=== PATIENT | female | born 2000 | race Caucasian/White ===

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

== ENCOUNTER 2018-02-20 15:57 | Emergency (ER) | END 2018-02-20 18:26 | disposition left against medical advice (07) ==

== ENCOUNTER 2018-04-03 16:36 | Emergency (ER) | END 2018-04-03 19:02 | disposition home or self-care (01) ==

== ENCOUNTER 2018-04-30 19:37 | Inpatient (IN) | payer OTHER ==
[~2018-04-30] VITALS: Ht 154.9 cm; Wt 83.0 kg
[~2018-04-30 19:37] MED LIST: ACET325T33 PO; ACET500C5 PO; AMOX1TAB10 PO; CEPH-443 PO; CIPR500T4 PO; IBUP-1542 PO; METO10TA92 PO; ONDA4TAB14 PO; ONDA4TAB8 PO; SULF1TAB31 PO
--- NOTE | 2018-04-30 21:19 | ERD ---
ER Documentation Chief Complaint Chief Complaint RUQ & LUQ PAIN WITH 13 WKS PREG, DENIES BLEEDING HPI 18-year-old female who was approximately 17 weeks is complaining of right upper quadrant and left upper quadrant pain. Patient states that the pain is constant, feels like "squeezing". The pain is worse with movement or stretching. Denies dysuria. Denies pain after eating. Denies fever or chills. Denies vaginal bleeding. ROS All systems reviewed and are negative except as per history of present illness. Medications Home Meds Active Scripts Metoclopramide* (Reglan*) 10 Mg Tablet, 10 MG PO Q6 PRN for NAUSEA AND/OR VOMITING, #15 TAB Prov:DARRYL CASTANEDA MD 04/03/18 Acetaminophen* (Tylophen*) 500 Mg Capsule, 1 CAP PO Q6H PRN for PAIN AND OR ELEVATED TEMP, #15 CAP Prov:DARRYL CASTANEDA MD 04/03/18 Ibuprofen* (Motrin*) 600 Mg Tab, 600 MG PO Q6, #30 TAB Prov:VERA,TAMY 11/30/17 Ondansetron (Ondansetron Odt) 4 Mg Tab.rapdis, 4 MG PO Q6H PRN for NAUSEA AND/OR VOMITING, #10 TAB Prov:VERA,TAMY 11/30/17 Acetaminophen* (Tylenol*) 325 Mg Tablet, 2 TAB PO Q8 PRN for PAIN AND OR ELEVATED TEMP, #20 TAB Prov:AGUSTIN LANIER 10/31/17 Ondansetron Hcl* (Zofran*) 4 Mg Tablet, 4 MG PO Q6H for NAUSEA AND/OR VOMITING, #30 TAB Prov:AGUSTIN LANIER 10/31/17 Ciprofloxacin Hcl* (Ciprofloxacin Hcl*) 500 Mg Tablet, 500 MG PO BID for 7 Days, TAB Prov:AGUSTIN LANIER 10/31/17 Cephalexin* (Keflex*) 500 Mg Capsule, 500 MG PO QID for 10 Days, CAP Prov:JANNA MEZA NP 09/11/17 Sulfamethoxazole/Trimethoprim* (Bactrim Ds* Tablet) 1 Each Tablet, 1 TAB PO BID, #20 TAB Prov:JANNA MEZA NP 5/29/18 Ibuprofen* (Motrin*) 600 Mg Tab, 600 MG PO Q6H PRN for PAIN AND OR ELEVATED TEMP, #30 TAB Prov:JANNA MEZA NP 09/11/17 Ibuprofen* (Motrin*) 600 Mg Tab, 600 MG PO Q6, #30 TAB Prov:BJORN CASTILLO PA-C 05/10/16 Amoxicillin/Potassium Clav (Amox-Clav 875-125 mg Tablet) 875-125 mg Tab, 1 TAB PO BID for 7 Days, #14 TAB Prov:BJORN CASTILLO PA-C 05/10/16 Allergies Allergies: Coded Allergies: No Known Allergy (Unverified , 04/03/18) PMhx/Soc Medical and Surgical Hx: pt denies Medical Hx, pt denies Surgical Hx History of Surgery: No Anesthesia Reaction: No Hx Neurological Disorder: No Hx Respiratory Disorders: No Hx Cardiac Disorders: No Hx Psychiatric Problems: No Hx Miscellaneous Medical Probl: Yes (Pt states binge eating/purging [id number] (today 11/2017)) Hx Alcohol Use: Yes (Socially) Hx Substance Use: No Hx Tobacco Use: No Smoking Status: Never smoker Physical Exam Vitals Vital Signs Date Temp Pulse Resp B/P (MAP) Pulse Ox O2 O2 Flow FiO2 Time Delivery Rate 04/30/18 96.6 78 18 112/53 99 19:42 (72) Physical Exam General: Well-developed, well-nourished, conscious and coherent, in no distress Skin: Warm and dry without rash, good texture and turgor Head: Normocephalic without evidence of trauma Heart: Regular rate and rhythm. No murmur, rub, or gallops heard Abdomen: Soft, left upper quadrant and right upper quadrant tenderness without masses, guarding, or rebound. Bowel sounds are active. No hepat osplenomegaly Back: Without spinal tenderness, left CVA tenderness Pelvis: Nontender to palpation and stable to compression Extremities: Full range of motion. Good strength bilaterally. No erythema, ecchymosis, or edema. Peripheral pulses are intact. Sensation intact Neuro: Alert and oriented 4, GCS 15. Result Diagram: 04/30/18214204/30/182142 Results 24 hrs Laboratory Tests Test 04/30/18 21:19 04/30/18 21:43 Bedside Urine pH (LAB) 7.0 Bedside Urine Protein (LAB) Negative Bedside Urine Glucose (UA) Negative Bedside Urine Ketones (LAB) Negative Bedside Urine Blood Negative Bedside Urine Nitrite (LAB) Negative Bedside Urine Leukocyte Esterase (L Negative White Blood Count 9.3 10^3/ul Red Blood Count 3.70 10^6/ul Hemoglobin 11.9 g/dl Hematocrit 34.8 % Mean Corpuscular Volume 94.1 fl Mean Corpuscular Hemoglobin 32.2 pg Mean Corpuscular Hemoglobin Concent 34.2 g/dl Red Cell Distribution Width 12.5 % Platelet Count 182 10^3/UL Mean Platelet Volume 10.0 fl Immature Granulocytes % 0.600 % Neutrophils % 75.3 % Lymphocytes % 18.8 % Monocytes % 4.6 % Eosinophils % 0.6 % Basophils % 0.1 % Nucleated Red Blood Cells % 0.0 /100WBC Immature Granulocytes # 0.060 10^3/ul Neutrophils # 7.0 10^3/ul Lymphocytes # 1.8 10^3/ul Monocytes # 0.4 10^3/ul Eosinophils # 0.1 10^3/ul Basophils # 0.0 10^3/ul Nucleated Red Blood Cells # 0.0 10^3/ul Sodium Level 140 mmol/L Potassium Level 3.9 mmol/L Chloride Level 101 mmol/L Carbon Dioxide Level 26 mmol/L Anion Gap 13 Blood Urea Nitrogen 8 mg/dl Creatinine 0.36 mg/dl Est Glomerular Filtrat Rate mL/min > 60 mL/min Glucose Level 107 mg/dl Calcium Level 9.2 mg/dl Total Bilirubin 0.1 mg/dl Direct Bilirubin 0.00 mg/dl Indirect Bilirubin 0.1 mg/dl Aspartate Amino Transf (AST/SGOT) 20 IU/L Alanine Aminotransferase (ALT/SGPT) 25 IU/L Alkaline Phosphatase 54 IU/L Total Protein 6.9 g/dl Albumin 3.9 g/dl Globulin 3.00 g/dl Albumin/Globulin Ratio 1.30 Lipase 1684 U/L Current Medications Medications Dose Sig/Irene Start Time Status Last (Trade) Ordered Route PRN Stop Time Admin Dose Reason Admin 650 mg ONCE ONCE 04/30/18 DC 04/30/18 Acetaminophen PO 21:30 21:12 (Tylenol 04/30/18 21:31 Tab) Sodium 1,000 ml @ Q1H ONCE 04/30/18 04/30/18 Chloride 1,000 mls/hr IV 23:00 23:04 04/30/18 23:59 PROCEDURE: Abdominal ultrasound, limited. CLINICAL INDICATION: Abdominal pain. TECHNIQUE: Multiple real-time images were acquired of the patient's right upper abdomen utilizing a high resolution transducer. COMPARISON: None FINDINGS: The liver demonstrates normal echogenicity and size measuring 13.1 cm. There is no focal mass or intrahepatic biliary ductal dilatation. The portal vein is patent. The gallbladder is contracted and contains echogenic gallstones. There is a negative sonographic Coombs's sign. There is no pericholecystic fluid or gallbladder wall thickening. The common bile duct measures 1.6 mm in maximal dimension. The pancreas is obscured by overlying bowel gas. No free fluid is identified. The right kidney is normal size and echogenicity measuring 12.4 cm. There is no focal renal mass or echogenic calculus identified. There is no obstructive uropathy. IMPRESSION: Cholelithiasis without ultrasound evidence of cholecystitis. Pancreas obscured by overlying bowel gas. .Blu Lazcano MD, MD Date Time Electronically viewed and signed by .Blu Lazcano MD, MD on 04/30/2018 21:58 .T/ CC: JUAN GOMEZ NP PROCEDURE: US OB. CLINICAL INDICATION: , pain. TECHNIQUE: Multiple sonographic images of the pelvis were obtained. Transabdominal imaging only was performed. The images were reviewed on a PACS workstation. COMPARISON: No prior studies are available for comparison. FINDINGS: There is a single viable intrauterine gestation. Cardiac activity is present with 146 beats per minute. There is a variable presentation. Measurements were made in order to determine age. The results are as follows: BPD = 3.98 cm HC = 14.12 cm AC = 10.98 cm FL = 2.44 cm Estimated gestational age of approximately 17 weeks 3 days. The estimated date of delivery is 10/05/2018. The EFW = 103 g EFW percentile: 87% The placenta is posterior fundal, grade 0. There is no evidence for an abruption. There is a normal amount of amniotic fluid. The MVP measures 5.2 cm. IMPRESSION: Single live intrauterine gestation of approximately 17 weeks 3 days, based on ultrasound measurements. The estimated date of delivery is 10/05/2018. EFW percentile: 87%. RPTAT: HTAR .Yosef Traylor MD, MD Date Time Electronically viewed and signed by .Yosef Traylor MD, MD on 04/30/2018 22:01 .R/ CC: JUAN GOMEZ NP Procedures/MDM Well-appearing 18-year-old female who is approximately 17 weeks presents the ED with left upper quadrant and right upper quadrant pain. CBC: no e/o of systemic infection or severe anemia CMP: no e/o severe acidosis, alkalosis, renal failure, diabetic ketoacidosis, liver disease Lipase: Markedly elevated at 1684, suggestive of pancreatitis Urine: no e/o acute infection or hematuria Gallbladder ultrasound showed cholelithiasis without signs of cholecystitis. OB ultrasound showed normal intrauterine . Patient is given normal saline fluid bolus in the ED. Patient denies any severe pain at this time. She was given Tylenol p.o. I discussed the patient with Dr. Lion, who will admit the patient with medicine. I also informed labors on-call Dr. Romano, who stated that she will consult on the patient in the morning. Departure Diagnosis: Primary Impression: Pancreatitis Condition: Serious JUAN GOMEZ NP Apr 30, 2018 21:19
[2018-04-30] MEDS ORDERED: ACETAMINOPHEN 325 MG TAB PO ONE (21:30)
[2018-04-30] MEDS ORDERED: SOD CHLORIDE 0.9% 1,000 ML IV ONE (23:00)
[2018-05-01 03:09] VITALS: BP 106/54; PULSE 65; RESP 17
[2018-05-01 03:35] VITALS: Ht 154.9 cm; Wt 83.0 kg
--- NOTE | 2018-05-01 04:31 | NUR ---
POTABLE WATER TREATMENT OPERATOR NOTES Patient arrived in unit in no apparent distress. Patient is alert and oriented, verbally responsive and able to make needs known. No c/o pain as of this time, skin is warm and dry to touch. Breathing regular an don labored. Routine admission done. Boyfriend at bedside. Patient is 17 weeks . teaching provided. Explained treatment plan. All nursing needs attended, no concerns at this time. Will continue to monitor. Addendum: 05/01/18 at 0745 by NICKY PIRES RN Patient refused picture to be taken on her buttock and bilateral heels, she said she is not comfortable.
[2018-05-01] MEDS ORDERED: morphine 2 MG INJ IV PRN (05:00)
[2018-05-01] MEDS ORDERED: MAGNESIUM HYDROXIDE 30ML CUP PO PRN (05:00)
[2018-05-01] MEDS ORDERED: DOCUSATE SODIUM 100 MG CAP PO PRN (05:00)
[2018-05-01] MEDS ORDERED: NACL 0.9% 3 ML SYG IV SCH (05:00)
[2018-05-01] MEDS ORDERED: BISACODYL 10 MG SUPP PR PRN (05:00)
[2018-05-01] MEDS ORDERED: ONDANSETRON 4 MG INJ IV PRN (05:00)
[2018-05-01] MEDS ORDERED: morphine SULFATE/PF (2 MG/2 ML) SYG IV PRN (05:00)
[2018-05-01] MEDS: DEXTROSE 5%-0.9% NACL 1,000 ML IV SCH ×3 (05:39→20:43)
[2018-05-01 08:00] VITALS: BP 100/51; PULSE 65; RESP 18
[2018-05-01] MEDS: FAMOTIDINE 20 MG INJ IV SCH ×2 (09:41→20:43)
[2018-05-01] MEDS: ACETAMINOPHEN 325 MG TAB PO PRN (09:42)
--- NOTE | 2018-05-01 10:30 | NUR ---
SS Note: AHCD/Initial Visit SW received notification pt interested in more information regarding AHCD. The patient is a 18-year-old female with, 17 weeks admitted due to acute pancreatitis. SW met with pt and her significant other at bedside. Pt agreed for significant other to be present to during interview. Pt is unmarried and has no living children. Pt named her mother, Shu Guillen , as surrogate decision maker/spokesperson. Pt confirmed address on facesheet and stated she lives with her parents. 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 Pt has [employer] insurance and PCP is at [facility]. SW introduced self and the role of the older adult social work specialist. SW provided support and reassurance. SW discussed and provided education about completing and facilitating the AHCD. Pt was provided with AHCD form for her completion. No AHCD f/u requested. SW remains available for f/u as needed.
--- NOTE | 2018-05-01 10:39 | HP ---
Date/Time of Note Date/Time of Note DATE: 05/01/18 TIME: 10:27 Assessment/Plan VTE Prophylaxis SCD applied (from Nsg): Yes Pharmacological prophylaxis: NA/contraindicated Pharm contraindication: other ( ) Lines/Catheters IV Catheter Type (from Nrs): Saline Lock Assessment/Plan Assessment/Plan 18-year-old female with: 1. Acute pancreatitis, clinically and per laboratory, amylase and lipase did go up this morning to 295/2209 . Patient to remain n.p.o. except for ice chips and sips of water with medications. Fasting lipid panel negative, limited to information from gallbladder ultrasound except for the fact that no acute infection seen. MRCP pending. CMP pending Continue IV fluids, repeat labs in a.m., GI consult and MRCP pending. 2. , patient is in her second trimester, she is a 17 weeks, fetus viable per OB ultrasound. Patient remains stable. We will have OB involved if patient needs additional procedure to be done be on MRCP. Prophylaxis: Pepcid for GI prophylaxis, SCDs for DVT prophylaxis Disposition: N.p.o., IV fluids, MRCP today, GI consult. Result Diagram: 04/30/18214204/30/182142 Results 24hrs Laboratory Tests Test 04/30/18 21:19 04/30/18 21:43 05/01/18 05:18 Bedside Urine pH (LAB) 7.0 Bedside Urine Protein (LAB) Negative Bedside Urine Glucose (UA) Negative Bedside Urine Ketones (LAB) Negative Bedside Urine Blood Negative Bedside Urine Nitrite (LAB) Negative Bedside Urine Leukocyte Esterase (L Negative White Blood Count 9.3 Red Blood Count 3.70 L Hemoglobin 11.9 L Hematocrit 34.8 L Mean Corpuscular Volume 94.1 Mean Corpuscular Hemoglobin 32.2 Mean Corpuscular Hemoglobin Concent 34.2 Red Cell Distribution Width 12.5 Platelet Count 182 Mean Platelet Volume 10.0 Immature Granulocytes % 0.600 H Neutrophils % 75.3 H Lymphocytes % 18.8 Monocytes % 4.6 Eosinophils % 0.6 Basophils % 0.1 Nucleated Red Blood Cells % 0.0 Immature Granulocytes # 0.060 H Neutrophils # 7.0 Lymphocytes # 1.8 Monocytes # 0.4 Eosinophils # 0.1 Basophils # 0.0 Nucleated Red Blood Cells # 0.0 Sodium Level 140 Potassium Level 3.9 Chloride Level 101 Carbon Dioxide Level 26 Anion Gap 13 Blood Urea Nitrogen 8 Creatinine 0.36 L Est Glomerular Filtrat Rate mL/min > 60 Glucose Level 107 Calcium Level 9.2 Total Bilirubin 0.1 L Direct Bilirubin 0.00 Indirect Bilirubin 0.1 Aspartate Amino Transf (AST/SGOT) 20 Alanine Aminotransferase (ALT/SGPT) 25 Alkaline Phosphatase 54 Total Protein 6.9 Albumin 3.9 Globulin 3.00 Albumin/Globulin Ratio 1.30 Lipase 1684 H 2209 H Triglycerides Level 71 Cholesterol Level 148 LDL Cholesterol, Calculated 66 HDL Cholesterol 68 Cholesterol/HDL Ratio 2.1 Amylase Level 295 H HPI/ROS Admit Date/Time Admit Date/Time May 01, 2018 at 02:09 Hx of Present Illness Chief complaint: Abdominal pain History of present illness: This is a 18-year-old female , currently 17 weeks who presented the emergency department with complaint of acute onset of abdominal pain. She reports that she had acute onset of epigastric right upper quadrant area pain yesterday morning, mild, however throughout the day it started worsening and was intermittent coming in waves. She came to the emergency department, upon evaluation she was found to have elevated lipase level and diagnosis consistent with acute pancreatitis. Gallbladder ultrasound did show cholelithiasis but no signs of acute infections. She also had a pelvic ultrasound will be that did confirm a viable at 17 weeks. Patient has been admitted to the medical service for acute pancreatitis, she is on IV fluids, n.p.o. except for ice chips and IV fluid, amylase and lipase still trending up. Patient still with some epigastric pain that seems to be radiating from right upper quadrant to left upper quadrant. No nausea or vomiting. No fevers or chills. No diarrhea. MRCP is ordered and pending. Patient admitted to medical surgical bed. ROS Constitutional: no complaints Eyes: no complaints Respiratory: no complaints Cardiovascular: no complaints Gastrointestinal: pain (Epigastric, intermittent) Genitourinary: no complaints Musculoskeletal: no complaints Skin: no complaints Neurologic: no complaints Endocrine: no complaints Lymphatic: no complaints Psychological: no complaints Immunologic: no complaints PMH/Family/Social Past Medical History Patient currently , first at 17 weeks currently. Medications Current Medications IV Flush (NS 3 ml) 3 ml PER PROTOCOL IV ; Start 05/01/18 at 05:00 Ondansetron HCl (Zofran Inj) 4 mg Q6H PRN IV NAUSEA AND/OR VOMITING; Start 05/01/18 at 05:00 Acetaminophen (Tylenol Tab) 650 mg Q6H PRN PO PAIN LEVEL 1-3 OR FEVER Last administered on 05/01/18at 09:42; Admin Dose 650 MG; Start 05/01/18 at 05:00 Docusate Sodium (Colace) 100 mg Q12H PRN PO CONSTIPATION; Start 05/01/18 at 05:00 Magnesium Hydroxide (Milk Of Mag) 30 ml DAILY PRN PO CONSTIPATION; Start at 05:00 Bisacodyl (Dulcolax Supp) 10 mg DAILY PRN MS CONSTIPATION; Start 05/01/18 at 05:00 Famotidine (Pepcid Iv) 20 mg Q12 IV Last administered on 05/01/18at 09:41; Admin Dose 20 MG; Start 05/01/18 at 09:00 Dextrose/Sodium Chloride 1,000 ml @ 125 mls/hr Q8H IV Last administered on 05/01/18at 05:39; Admin Dose 125 MLS/HR; Start 05/01/18 at 05:00 Morphine Sulfate (morphine SULFATE (PF)) 2 mg Q4H PRN IV SEVERE PAIN LEVEL 7- 10; Start 05/01/18 at 05:00 Coded Allergies: No Known Allergy (Unverified , 04/03/18) Past Surgical History Past Surgical Hx: no surgical history Family History Significant Family History: no pertinent family hx Social History Alcohol Use: none Smoking Status: Never smoker Drug Use: none Exam/Review of Systems Vital Signs Vitals Vital Signs Date Temp Pulse Resp B/P (MAP) Pulse Ox O2 O2 Flow FiO2 Time Delivery Rate 05/01/18 98.6 65 18 100/51 96 08:00 (67) 05/01/18 Room Air 02:17 Intake and Output 04/30/18 04/30/18 05/01/18 1515:00 23:00 07:00 IntakeIntake Total 50 ml BalanceBalance 50 ml Exam Constitutional: alert, oriented, well developed Respiratory: clear to auscultation, normal air movement Cardiovascular: regular rate and rhythm, nl pulses Gastrointestinal: soft, tender (Right upper quadrant epigastric area radiation to left upper quadrant area.) Genitourinary - Female: uterus (slightly gravid, 17 weeks .) Musculoskeletal: nl extremities to inspection, nl gait and stance Extremities: normal pulses, other (No edema, clubbing or cyanosis.) Neurological: LAWN SERVICE MANAGER II-XII intact, nl mental status, nl speech, nl strength Additional Comments PROCEDURE: Abdominal ultrasound, limited. CLINICAL INDICATION: Abdominal pain. TECHNIQUE: Multiple real-time images were acquired of the patient's right upper abdomen utilizing a high resolution transducer. COMPARISON: None FINDINGS: The liver demonstrates normal echogenicity and size measuring 13.1 cm. There is no focal mass or intrahepatic biliary ductal dilatation. The portal vein is patent. The gallbladder is contracted and contains echogenic gallstones. There is a negative sonographic Coombs's sign. There is no pericholecystic fluid or gallbladder wall thickening. The common bile duct measures 1.6 mm in maximal dimension. The pancreas is obscured by overlying bowel gas. No free fluid is identified. The right kidney is normal size and echogenicity measuring 12.4 cm. There is no focal renal mass or echogenic calculus identified. There is no obstructive uropathy. IMPRESSION: Cholelithiasis without ultrasound evidence of cholecystitis. Pancreas obscured by overlying bowel gas. .Blu Lazcano MD, MD Date Time Electronically viewed and signed by .Blu Lazcano MD, MD on 04/30/2018 21:58 PROCEDURE: US OB. CLINICAL INDICATION: , pain. TECHNIQUE: Multiple sonographic images of the pelvis were obtained. Transabdominal imaging only was performed. The images were reviewed on a PACS workstation. COMPARISON: No prior studies are available for comparison. FINDINGS: There is a single viable intrauterine gestation. Cardiac activity is present with 146 beats per minute. There is a variable presentation. Measurements were made in order to determine age. The results are as follows: BPD = 3.98 cm HC = 14.12 cm AC = 10.98 cm FL = 2.44 cm Estimated gestational age of approximately 17 weeks 3 days. The estimated date of delivery is 10/05/2018. The EFW = 103 g EFW percentile: 87% The placenta is posterior fundal, grade 0. There is no evidence for an abruption. There is a normal amount of amniotic fluid. The MVP measures 5.2 cm. IMPRESSION: Single live intrauterine gestation of approximately 17 weeks 3 days, based on ultrasound measurements. The estimated date of delivery is 10/05/2018. EFW percentile: 87%. RPTAT: HTAR .Yosef Traylor MD, MD Date Time Electronically viewed and signed by .Yosef Traylor MD, MD on 04/30/2018 22:01 MIKEY HAMMOND May 01, 2018 10:38
[2018-05-01 14:00] VITALS: BP 107/51; PULSE 68; RESP 20
--- NOTE | 2018-05-01 18:15 | CONS ---
Date/Time of Note Date/Time of Note DATE: 05/01/18 TIME: 18:07 Assessment/Plan Assessment/Plan Hospital Course Summary Assessment and Plan: Assessment: Acute pancreatitis Single live intrauterine gestation of approximately 17 weeks 4 days 05/01/17 Plan: Keep NPO- start clear liquid when pain has improved IVF Pending MRCP If positive for choledocholithiasis-patient will need urgent transfer to tertiary care center for possible ERCP Monitor labs Patient seen in collaboration with Dr. Mahmood Result Diagram: 04/30/18 2143 05/01/18 1049 Results 24hrs Laboratory Tests Test 04/30/18 21:19 04/30/18 21:43 05/01/18 05:18 05/01/18 10:49 Bedside Urine pH 7.0 (LAB) Bedside Urine Negative Protein (LAB) Bedside Urine Negative Glucose (UA) Bedside Urine Negative Ketones (LAB) Bedside Urine Blood Negative Bedside Urine Negative Nitrite (LAB) Bedside Urine Negative Leukocyte Esterase (L White Blood Count 9.3 Red Blood Count 3.70 L Hemoglobin 11.9 L Hematocrit 34.8 L Mean Corpuscular 94.1 Volume Mean Corpuscular 32.2 Hemoglobin Mean Corpuscular 34.2 Hemoglobin Concent Red Cell 12.5 Distribution Width Platelet Count 182 Mean Platelet Volume 10.0 Immature 0.600 H Granulocytes % Neutrophils % 75.3 H Lymphocytes % 18.8 Monocytes % 4.6 Eosinophils % 0.6 Basophils % 0.1 Nucleated Red Blood 0.0 Cells % Immature 0.060 H Granulocytes # Neutrophils # 7.0 Lymphocytes # 1.8 Monocytes # 0.4 Eosinophils # 0.1 Basophils # 0.0 Nucleated Red Blood 0.0 Cells # Sodium Level 140 137 Potassium Level 3.9 3.8 Chloride Level 101 107 Carbon Dioxide Level 26 23 Anion Gap 13 7 Blood Urea Nitrogen 8 7 Creatinine 0.36 L 0.37 L Est Glomerular > 60 > 60 Filtrat Rate mL/min Glucose Level 107 85 Calcium Level 9.2 8.4 Total Bilirubin 0.1 L 0.1 L Direct Bilirubin 0.00 0.00 Indirect Bilirubin 0.1 0.1 Aspartate Amino 20 18 Transf (AST/SGOT) Alanine 25 19 Aminotransferase (AL T/SGPT) Alkaline Phosphatase 54 46 Total Protein 6.9 5.7 #L Albumin 3.9 3.2 L Globulin 3.00 2.50 Albumin/Globulin 1.30 1.28 Ratio Lipase 1684 H 2209 H Triglycerides Level 71 Cholesterol Level 148 LDL Cholesterol, 66 Calculated HDL Cholesterol 68 Cholesterol/HDL 2.1 Ratio Amylase Level 295 H Prothrombin Time 13.0 Prothrombin Time 1.0 Ratio INR International 0.97 Normalized Ratio Activated 31.0 Partial Thromboplast Time CC: JANAK MAHMOOD MD ; Consultation Date/Type/Reason Admit Date/Time May 01, 2018 at 02:09 Date of Consultation: May 01, 2018 Type of Consult GI Reason for Consultation acute pancreatitis r/o CBD obstruction Hx of Present Illness This is a 18 year old female who is currently 17 weeks with no other past medical history who presented to the ED with complaints of upper abdominal pain with no associated nausea or vomiting times 1 days presented to ED for further evaluation. Upon workup patient noted to have an elevated lipase. Gallbladder ultrasound was obtained showing cholelithiasis without evidence of cholecystitis. Patient has been n.p.o. on IV fluids. Lipase was rechecked today and has increased from 1684 to 2209, additionally amylase is elevated at 295. Patient is status post MRCP currently results are pending. Discussed with patient if positive for choledocholithiasis she will need to be transferred to a tertiary center for evaluation and treatment currently patient denies nausea/vomiting she continues to complain of upper abdominal pain 4 out of 10 no complaints of constipation, diarrhea, melena, or hematochezia. Pain improves will consider starting clear liquid diet in a.m. Review of Systems: A 12 system, review was conducted and is negative except as noted in the HPI or here. Subjective hx not possible: pt non-verbal Past Medical History Medications Current Medications IV Flush (NS 3 ml) 3 ml PER PROTOCOL IV ; Start 05/01/18 at 05:00 Ondansetron HCl (Zofran Inj) 4 mg Q6H PRN IV NAUSEA AND/OR VOMITING; Start 05/01/18 at 05:00 Acetaminophen (Tylenol Tab) 650 mg Q6H PRN PO PAIN LEVEL 1-3 OR FEVER Last administered on 05/01/18at 09:42; Admin Dose 650 MG; Start 05/01/18 at 05:00 Docusate Sodium (Colace) 100 mg Q12H PRN PO CONSTIPATION; Start 05/01/18 at 05:00 Magnesium Hydroxide (Milk Of Mag) 30 ml DAILY PRN PO CONSTIPATION; Start 05/01/18 at 05:00 Bisacodyl (Dulcolax Supp) 10 mg DAILY PRN [place] CONSTIPATION; Start 05/01/18 at 05:00 Famotidine (Pepcid Iv) 20 mg Q12 IV Last administered on 05/01/18at 09:41; Admin Dose 20 MG; Start 05/01/18 at 09:00 Dextrose/Sodium Chloride 1,000 ml @ 125 mls/hr Q8H IV Last administered on 05/01/18at 12:58; Admin Dose 125 MLS/HR; Start 05/01/18 at 05:00 Morphine Sulfate (morphine SULFATE (PF)) 2 mg Q4H PRN IV SEVERE PAIN LEVEL 7- 10; Start 05/01/18 at 05:00 Allergies: Coded Allergies: No Known Allergy (Unverified , 04/03/18) Past Surgical History Past Surgical Hx: no surgical history Social History Alcohol Use: none Smoking Status: Never smoker Drug Use: none Exam/Review of Systems Vital Signs Vitals Vital Signs Date Temp Pulse Resp B/P (MAP) Pulse Ox O2 O2 Flow FiO2 Time Delivery Rate 05/01/18 98.0 68 20 107/51 96 14:00 (69) 05/01/18 Room Air 02:17 Intake and Output 04/30/18 04/30/18 05/01/18 1515:00 23:00 07:00 IntakeIntake Total 50 ml BalanceBalance 50 ml Exam PHYSICAL EXAMINATION: GENERAL: Well developed, well nourished, alert & oriented x 3, in no acute distress SKIN: No lesions EYES: Pupils equal reactive to light, no discharge. EARS/NOSE AND THROAT: Ears normal, nose normal, oropharynx normal NECK: Supple, no masses. CHEST: Inspection within normal limits. CARDIOVASCULAR: Heart: Regular rate and rhythm RESPIRATORY: Lungs clear to auscultation GASTROINTESTINAL AND LIVER: Abdomen: Soft, non tenderness, distended, 17 weeks , no hernias, normoactive bowel sounds. Rectal: Deferred. GENITOURINARY: Not examined EXTREMITIES: No cyanosis, clubbing or edema. Medications Medications Current Medications IV Flush (NS 3 ml) 3 ml PER PROTOCOL IV ; Start 05/01/18 at 05:00 Ondansetron HCl (Zofran Inj) 4 mg Q6H PRN IV NAUSEA AND/OR VOMITING; Start 05/01/18 at 05:00 Acetaminophen (Tylenol Tab) 650 mg Q6H PRN PO PAIN LEVEL 1-3 OR FEVER Last administered on 05/01/18at 09:42; Admin Dose 650 MG; Start 05/01/18 at 05:00 Docusate Sodium (Colace) 100 mg Q12H PRN PO CONSTIPATION; Start 05/01/18 at 05:00 Magnesium Hydroxide (Milk Of Mag) 30 ml DAILY PRN PO CONSTIPATION; Start 05/01/18 at 05:00 Bisacodyl (Dulcolax Supp) 10 mg DAILY PRN [place] CONSTIPATION; Start 05/01/18 at 05:00 Famotidine (Pepcid Iv) 20 mg Q12 IV Last administered on 05/01/18at 09:41; Admin Dose 20 MG; Start 05/01/18 at 09:00 Dextrose/Sodium Chloride 1,000 ml @ 125 mls/hr Q8H IV Last administered on 05/01/18at 12:58; Admin Dose 125 MLS/HR; Start 05/01/18 at 05:00 Morphine Sulfate (morphine SULFATE (PF)) 2 mg Q4H PRN IV SEVERE PAIN LEVEL 7- 10; Start 05/01/18 at 05:00 RUDY ROSA May 01, 2018 18:15
--- NOTE | 2018-05-01 18:51 | NUR ---
No acute changes during shift. Pt safe and free from injury. Significant other at bedside through shift. Pt A&ox4 and able to make needs known. Pt ambulatory with steady gait. Pt pain and discomfort managed throughout shift. No signs of distress. No SOB. Pt currently comfortable in bed. Bed alarm on, call light within reach. Will continue to monitor.
--- NOTE | 2018-05-01 19:50 | CONS ---
Date/Time of Note Date/Time of Note DATE: 05/01/18 TIME: 19:25 Assessment/Plan Assessment/Plan Assessment/Plan 18 years old 1 with single intrauterine at 17 weeks and 3 days with cholelithiasis without Cholecystitis and pancreatitis. She is being followed by GI and hospitalist. Please see their note for detail. Regarding , she is currently doing well. Ultrasound performed which confirmed single intrauterine . If patient needs surgery, second trimester is the best time for performing surgery as the risk of spontaneous and labor is lower than first and third trimester. heart rate will be checked daily. Please reconsult if patient needs any surgery. Result Diagram: 04/30/18 2143 05/01/18 1049 Results 24hrs Laboratory Tests Test 04/30/18 21:19 04/30/18 21:43 05/01/18 05:18 05/01/18 10:49 Bedside Urine pH 7.0 (LAB) Bedside Urine Negative Protein (LAB) Bedside Urine Negative Glucose (UA) Bedside Urine Negative Ketones (LAB) Bedside Urine Blood Negative Bedside Urine Negative Nitrite (LAB) Bedside Urine Negative Leukocyte Esterase (L White Blood Count 9.3 Red Blood Count 3.70 L Hemoglobin 11.9 L Hematocrit 34.8 L Mean Corpuscular 94.1 Volume Mean Corpuscular 32.2 Hemoglobin Mean Corpuscular 34.2 Hemoglobin Concent Red Cell 12.5 Distribution Width Platelet Count 182 Mean Platelet Volume 10.0 Immature 0.600 H Granulocytes % Neutrophils % 75.3 H Lymphocytes % 18.8 Monocytes % 4.6 Eosinophils % 0.6 Basophils % 0.1 Nucleated Red Blood 0.0 Cells % Immature 0.060 H Granulocytes # Neutrophils # 7.0 Lymphocytes # 1.8 Monocytes # 0.4 Eosinophils # 0.1 Basophils # 0.0 Nucleated Red Blood 0.0 Cells # Sodium Level 140 137 Potassium Level 3.9 3.8 Chloride Level 101 107 Carbon Dioxide Level 26 23 Anion Gap 13 7 Blood Urea Nitrogen 8 7 Creatinine 0.36 L 0.37 L Est Glomerular > 60 > 60 Filtrat Rate mL/min Glucose Level 107 85 Calcium Level 9.2 8.4 Total Bilirubin 0.1 L 0.1 L Direct Bilirubin 0.00 0.00 Indirect Bilirubin 0.1 0.1 Aspartate Amino 20 18 Transf (AST/SGOT) Alanine 25 19 Aminotransferase (AL T/SGPT) Alkaline Phosphatase 54 46 Total Protein 6.9 5.7 #L Albumin 3.9 3.2 L Globulin 3.00 2.50 Albumin/Globulin 1.30 1.28 Ratio Lipase 1684 H 2209 H Triglycerides Level 71 Cholesterol Level 148 LDL Cholesterol, 66 Calculated HDL Cholesterol 68 Cholesterol/HDL 2.1 Ratio Amylase Level 295 H Prothrombin Time 13.0 Prothrombin Time 1.0 Ratio INR International 0.97 Normalized Ratio Activated 31.0 Partial Thromboplast Time Consultation Date/Type/Reason Admit Date/Time May 01, 2018 at 02:09 Date of Consultation: May 01, 2018 Type of Consult [facility] consult Reason for Consultation Renetta intrauterine at 17 + weeks with pancreatitis Hx of Present Illness 18 years old 1 with single intrauterine at 17 weeks and 3 days with DAVID of 10/06/2018 who presented to emergency department with c/o of upper abdominal pain. She denies nausea, vomiting, shortness of breath, chest pain, headache, visual changes, vaginal bleeding or LOF. ER evaluation revealed an elevated lipase. Ultrasound of gallbladder showing cholelithiasis without evidence of cholecystitis. Repeat labs showing elevated lipase and amylase. Constitutional: no complaints Cardiovascular: no complaints Gastrointestinal: no complaints Genitourinary: no complaints Additional Comments 12 systems were negative, except please refer to history of present illness Past Medical History Medical History: no pertinent history Medications Current Medications IV Flush (NS 3 ml) 3 ml PER PROTOCOL IV ; Start 05/01/18 at 05:00 Ondansetron HCl (Zofran Inj) 4 mg Q6H PRN IV NAUSEA AND/OR VOMITING; Start 05/01/18 at 05:00 Acetaminophen (Tylenol Tab) 650 mg Q6H PRN PO PAIN LEVEL 1-3 OR FEVER Last administered on 05/01/18at 09:42; Admin Dose 650 MG; Start 05/01/18 at 05:00 Docusate Sodium (Colace) 100 mg Q12H PRN PO CONSTIPATION; Start 05/01/18 at 05:00 Magnesium Hydroxide (Milk Of Mag) 30 ml DAILY PRN PO CONSTIPATION; Start 05/01/18 at 05:00 Bisacodyl (Dulcolax Supp) 10 mg DAILY PRN [place] CONSTIPATION; Start 05/01/18 at 05 :00 Famotidine (Pepcid Iv) 20 mg Q12 IV Last administered on 05/01/18at 09:41; Admin Dose 20 MG; Start 05/01/18 at 09:00 Dextrose/Sodium Chloride 1,000 ml @ 125 mls/hr Q8H IV Last administered on at 12:58; Admin Dose 125 MLS/HR; Start 05/01/18 at 05:00 Morphine Sulfate (morphine SULFATE (PF)) 2 mg Q4H PRN IV SEVERE PAIN LEVEL 7- 10; Start 05/01/18 at 05:00 Allergies: Coded Allergies: No Known Allergy (Unverified , 04/03/18) Past Surgical History Past Surgical Hx: no surgical history Family History Significant Family History: no pertinent family hx Social History Alcohol Use: none Smoking Status: Never smoker Drug Use: none Exam/Review of Systems Vital Signs Vitals Vital Signs Date Temp Pulse Resp B/P (MAP) Pulse Ox O2 O2 Flow FiO2 Time Delivery Rate 05/01/18 98.0 68 20 107/51 96 14:00 (69) 05/01/18 Room Air 02:17 Intake and Output 04/30/18 04/30/18 05/01/18 1515:00 23:00 07:00 IntakeIntake Total 50 ml BalanceBalance 50 ml Exam Constitutional: alert, oriented, well developed Psych: no complaints, nl mood/affect Neck: supple, non-tender Respiratory: clear to auscultation, normal air movement Cardiovascular: regular rate and rhythm Gastrointestinal: soft, nl liver, spleen Musculoskeletal: nl extremities to inspection Extremities: normal pulses Neurological: MARKET RISK ANALYST II-XII intact, nl mental status, nl speech Medications Medications Current Medications IV Flush (NS 3 ml) 3 ml PER PROTOCOL IV ; Start 05/01/18 at 05:00 Ondansetron HCl (Zofran Inj) 4 mg Q6H PRN IV NAUSEA AND/OR VOMITING; Start 05/01/18 at 05:00 Acetaminophen (Tylenol Tab) 650 mg Q6H PRN PO PAIN LEVEL 1-3 OR FEVER Last administered on 05/01/18at 09:42; Admin Dose 650 MG; Start 05/01/18 at 05:00 Docusate Sodium (Colace) 100 mg Q12H PRN PO CONSTIPATION; Start 05/01/18 at 05:00 Magnesium Hydroxide (Milk Of Mag) 30 ml DAILY PRN PO CONSTIPATION; Start 05/01/18 at 05:00 Bisacodyl (Dulcolax Supp) 10 mg DAILY PRN [place] CONSTIPATION; Start 05/01/18 at 05 :00 Famotidine (Pepcid Iv) 20 mg Q12 IV Last administered on 05/01/18at 09:41; Admin Dose 20 MG; Start 05/01/18 at 09:00 Dextrose/Sodium Chloride 1,000 ml @ 125 mls/hr Q8H IV Last administered on at 12:58; Admin Dose 125 MLS/HR; Start 05/01/18 at 05:00 Morphine Sulfate (morphine SULFATE (PF)) 2 mg Q4H PRN IV SEVERE PAIN LEVEL 7- 10; Start 05/01/18 at 05:00 WHITNEY TELLEZ May 01, 2018 19:40
[2018-05-01 20:00] VITALS: BP 108/53; PULSE 60; RESP 18
--- NOTE | 2018-05-01 22:30 | NUR ---
L&D nurse here to do FHR monitoring. Will continue w/ plan of care
--- NOTE | 2018-05-01 22:30 | NUR ---
FHR per doppler x1-2 minutes: 143-149. No decels noted. Addendum: 05/01/18 at 2240 by CLARENCE BERNAL RN Amended: Links added.
[2018-05-02 02:00] VITALS: BP 94/54; PULSE 81; RESP 18
[2018-05-02] MEDS: DEXTROSE 5%-0.9% NACL 1,000 ML IV SCH ×3 (02:11→18:50)
--- NOTE | 2018-05-02 03:42 | NUR ---
Gave report to Angelia BUSTAMANTE for continuity of care
--- NOTE | 2018-05-02 06:46 | NUR ---
0342 Report received from Ella BUSTAMANTE. 0500 Pt resting comfortably in bed at this time, pt denies needs at this time. 0630 No significant changes occurred throughout the shift. Nursing will continue to monitor and endorse to morning shift to ensure pt safety and continuity of care.
[2018-05-02 08:00] VITALS: BP 103/50; PULSE 76; RESP 18
[2018-05-02] MEDS: FAMOTIDINE 20 MG INJ IV SCH ×2 (08:39→21:10)
--- NOTE | 2018-05-02 09:57 | PN ---
Date/Time of Note Date/Time of Note DATE: 05/02/18 TIME: 09:52 Assessment/Plan VTE Prophylaxis Risk score (from Ns)>0 risk: 2 SCD applied (from Ns): Yes Pharmacological prophylaxis: NA/contraindicated Pharm contraindication: low risk/ambulating Lines/Catheters IV Catheter Type (from Nrs): Peripheral IV Assessment/Plan Assessment/Plan 18-year-old female with: 1. Acute pancreatitis with possible chronic component based on MRCP. Improving clinically and per laboratory, amylase and lipase now trending down this morning to 185/590. CMP within normal. No abdominal pain this morning. MRCP done, results noted. Awaiting GI for further recommendations, given improvement clinically and significant decrease of pancreatic enzymes, hopefully patient will be treated conservatively and clear liquids can be started today. Appreciate evaluation and recommendations from OB. Continue IV fluids, repeat labs in a.m. 2. , patient is in her second trimester, she is a 17 weeks and 3 days, fetus viable per OB ultrasound. Patient remains stable. Appreciate evaluation and recommendations from OB. Monitoring heartbeat daily while inpatient. Prophylaxis: Pepcid for GI prophylaxis, SCDs for DVT prophylaxis Disposition: N.p.o., IV fluids, awaiting GI recommendations today. Result Diagram: 05/02/18 0550 05/02/18 0550 Results 24hrs Laboratory Tests Test 05/01/18 10:49 05/02/18 05:50 Prothrombin Time 13.0 Prothrombin Time Ratio 1.0 INR International Normalized Ratio 0.97 Activated Partial Thromboplast Time 31.0 Sodium Level 137 135 Potassium Level 3.8 3.8 Chloride Level 107 105 Carbon Dioxide Level 23 24 Anion Gap 7 6 Blood Urea Nitrogen 7 5 L Creatinine 0.37 L 0.41 L Est Glomerular Filtrat Rate mL/min > 60 > 60 Glucose Level 85 82 Calcium Level 8.4 8.3 L Total Bilirubin 0.1 L 0.1 L Direct Bilirubin 0.00 0.00 Indirect Bilirubin 0.1 0.1 Aspartate Amino Transf (AST/SGOT) 18 15 Alanine Aminotransferase (ALT/SGPT) 19 25 Alkaline Phosphatase 46 46 Total Protein 5.7 #L 5.8 L Albumin 3.2 L 3.1 L Globulin 2.50 2.70 Albumin/Globulin Ratio 1.28 1.14 White Blood Count 7.4 # Red Blood Count 3.06 L Hemoglobin 10.0 L Hematocrit 29.5 L Mean Corpuscular Volume 96.4 Mean Corpuscular Hemoglobin 32.7 Mean Corpuscular Hemoglobin Concent 33.9 Red Cell Distribution Width 12.8 Platelet Count 161 Mean Platelet Volume 10.9 H Immature Granulocytes % 0.500 H Neutrophils % 63.2 Lymphocytes % 29.3 Monocytes % 6.0 Eosinophils % 0.9 Basophils % 0.1 Nucleated Red Blood Cells % 0.0 Immature Granulocytes # 0.040 H Neutrophils # 4.7 Lymphocytes # 2.2 Monocytes # 0.5 Eosinophils # 0.1 Basophils # 0.0 Nucleated Red Blood Cells # 0.0 Phosphorus Level 3.9 Magnesium Level 1.7 Amylase Level 185 H Lipase 590 H Subjective 24 Hr Interval Summary Free Text/Dictation Patient feels much better, no abdominal pain this morning. Pancreatic enzymes trending down. MRCP did show signs of acute versus acute on chronic pancreatitis the level of the head of the pancreas. There is some possible narrowing of the pancreatic duct also described. GI following. Appreciate evaluation and recommendations from OB. Exam/Review of Systems Vital Signs Vitals Vital Signs Date Temp Pulse Resp B/P (MAP) Pulse Ox O2 O2 Flow FiO2 Time Delivery Rate 05/02/18 98.8 76 18 103/50 96 08:00 (67) 05/01/18 Room Air 02:17 Intake and Output 05/01/18 05/01/18 05/02/18 1515:00 23:00 07:00 IntakeIntake Total 1000 ml 800 ml OutputOutput Total 450 ml BalanceBalance 1000 ml 350 ml Exam Constitutional: alert, oriented, well developed Respiratory: clear to auscultation, normal air movement Cardiovascular: regular rate and rhythm, nl pulses Gastrointestinal: soft, non-tender Genitourinary - Female: uterus (Gravid, 17 weeks .) Musculoskeletal: nl extremities to inspection, nl gait and stance Extremities: normal pulses, other (No edema, clubbing or cyanosis) Neurological: BUSINESS ANALYTICS INTERN II-XII intact, nl mental status, nl speech, nl strength Medications Medications Current Medications IV Flush (NS 3 ml) 3 ml PER PROTOCOL IV ; Start 05/01/18 at 05:00 Ondansetron HCl (Zofran Inj) 4 mg Q6H PRN IV NAUSEA AND/OR VOMITING; Start 05/01/18 at 05:00 Acetaminophen (Tylenol Tab) 650 mg Q6H PRN PO PAIN LEVEL 1-3 OR FEVER Last administered on 05/01/18at 09:42; Admin Dose 650 MG; Start 05/01/18 at 05:00 Docusate Sodium (Colace) 100 mg Q12H PRN PO CONSTIPATION; Start 05/01/18 at 05:00 Magnesium Hydroxide (Milk Of Mag) 30 ml DAILY PRN PO CONSTIPATION; Start 05/01/18 at 05:00 Bisacodyl (Dulcolax Supp) 10 mg DAILY PRN [place] CONSTIPATION; Start 05/01/18 at 05:00 Famotidine (Pepcid Iv) 20 mg Q12 IV Last administered on 05/02/18at 08:39; Admin Dose 20 MG; Start 05/01/18 at 09:00 Dextrose/Sodium Chloride 1,000 ml @ 125 mls/hr Q8H IV Last administered on 05/02/18at 02:11; Admin Dose 125 MLS/HR; Start 05/01/18 at 05:00 Morphine Sulfate (morphine SULFATE (PF)) 2 mg Q4H PRN IV SEVERE PAIN LEVEL 7- 10; Start 05/01/18 at 05:00 Imaging Imaging PROCEDURE: MRI Abdomen without contrast CLINICAL INDICATION: patient with abdominal pain and acute pancreatitis. TECHNIQUE: Multiplanar multisequence magnetic resonance imaging examination of the abdomen was performed without intravenous gadolinium contrast according to MRCP protocol. COMPARISON: Abdominal sonogram dated 04/30/2018. FINDINGS: Multiple small gallstones are seen in the gallbladder without gallbladder wall thickening. There is no intrahepatic or extrahepatic biliary ductal dilatation. No intraductal filling defect is identified. Pancreatic head is enlarged and edematous. Pancreatic body and tail are moderately atrophic. There is irregular mild to moderate dilation of main pancreatic duct in the body and tail of the pancreas. Liver, spleen, and adrenal glands are within normal limits. There is a duplicated right renal collecting system. There is mild bilateral hydronephrosis. Multiple subcentimeter T2 hyperintense bilateral renal lesions like represent cysts. There is no ascites. There is an 8 x 3 x 3 cm loculated fluid collection extending from the tail of the pancreas along the left anterior pararenal space. There is no abdominal aortic aneurysm. There is no mesenteric or retroperitoneal lymphadenopathy. Gravid uterus is partially seen. Visualized bowel loops are unremarkable. Bone marrow signal intensity is within normal limits. IMPRESSION: 1. Enlarged edematous pancreatic head with moderate atrophy of the pancreatic body and tail. Irregular [id number] dilation of main pancreatic duct in the body and tail of the pancreas with abrupt cutoff in the neck. Findings could represent focal pancreatitis superimposed on chronic pancreatitis with possible stricture of the pancreatic duct in the neck or pancreatic head mass. Further evaluation is limited due to lack of intravenous contrast. Consider further evaluation with endoscopic ultrasound or contrast enhanced MRI when clinically appropriate. 2. Cholelithiasis without MR evidence of acute cholecystitis. 3. No evidence of choledocholithiasis or biliary ductal dilatation. 4. Duplicated right renal collecting system with mild bilateral hydronephrosis. MIKEY HAMMOND May 02, 2018 09:57
--- NOTE | 2018-05-02 13:03 | PN ---
Date/Time of Note Date/Time of Note DATE: 05/02/18 TIME: 12:56 Assessment/Plan VTE Prophylaxis Risk score (from Nsg)>0 risk: 2 SCD applied (from Ns): Yes SCD contraindicated: low risk/ambulating Pharmacological prophylaxis: NA/contraindicated Pharm contraindication: low risk/ambulating Lines/Catheters IV [facility] (from [facility]): Peripheral IV Assessment/Plan Hospital Course Summary Assessment and Plan: Assessment: Acute pancreatitis, gallstone? -MRCP- No evidence of choledocholithiasis or biliary ductal dilatation Single live intrauterine gestation of approximately 17 weeks 4 days on 05/01/17 Plan: MRCP-negative for choledocholithiasis Start clear liquid diet- advance in am if tolerated Continue to monitor labs Patient seen in collaboration with Dr. Mahmood/Jeffrey Subjective: Patient states she feels much better Pt states pain is at a 2-3/10 without pain mediation. MRCP- neg for choledocholithiasis therefore ERCP not indicated at this time. We will start clear liquid diet, and maintain close observation. PHYSICAL EXAMINATION: GENERAL: Well developed, well nourished, alert & oriented x 3, in no acute distress SKIN: No lesions EYES: Pupils equal reactive to light, no discharge. EARS/NOSE AND THROAT: Ears normal, nose normal, oropharynx normal NECK: Supple, no masses. CHEST: Inspection within normal limits. CARDIOVASCULAR: Heart: Regular rate and rhythm RESPIRATORY: Lungs clear to auscultation GASTROINTESTINAL AND LIVER: Abdomen: Soft, non tenderness, distended, 17 weeks , no hernias, normoactive bowel sounds. Rectal: Deferred. GENITOURINARY: Not examined EXTREMITIES: No cyanosis, clubbing or edema. MRCP IMPRESSION: 1. Enlarged edematous pancreatic head with moderate atrophy of the pancreatic body and tail. Irregular [id number] dilation of main pancreatic duct in the body and tail of the pancreas with abrupt cutoff in the neck. Findings could represent focal pancreatitis superimposed on chronic pancreatitis with possible stricture of the pancreatic duct in the neck or pancreatic head mass. Further evaluation is limited due to lack of intravenous contrast. Consider further evaluation with endoscopic ultrasound or contrast enhanced MRI when clinically appropriate. 2. Cholelithiasis without MR evidence of acute cholecystitis. 3. No evidence of choledocholithiasis or biliary ductal dilatation. 4. Duplicated right renal collecting system with mild bilateral hydronephrosis. Result Diagram: 1/17/19 0550 05/02/18 0550 Results 24hrs Laboratory Tests Test 05/02/18 05:50 White Blood Count 7.4 # Red Blood Count 3.06 L Hemoglobin 10.0 L Hematocrit 29.5 L Mean Corpuscular Volume 96.4 Mean Corpuscular Hemoglobin 32.7 Mean Corpuscular Hemoglobin Concent 33.9 Red Cell Distribution Width 12.8 Platelet Count 161 Mean Platelet Volume 10.9 H Immature Granulocytes % 0.500 H Neutrophils % 63.2 Lymphocytes % 29.3 Monocytes % 6.0 Eosinophils % 0.9 Basophils % 0.1 Nucleated Red Blood Cells % 0.0 Immature Granulocytes # 0.040 H Neutrophils # 4.7 Lymphocytes # 2.2 Monocytes # 0.5 Eosinophils # 0.1 Basophils # 0.0 Nucleated Red Blood Cells # 0.0 Sodium Level 135 Potassium Level 3.8 Chloride Level 105 Carbon Dioxide Level 24 Anion Gap 6 Blood Urea Nitrogen 5 L Creatinine 0.41 L Est Glomerular Filtrat Rate mL/min > 60 Glucose Level 82 Calcium Level 8.3 L Phosphorus Level 3.9 Magnesium Level 1.7 Total Bilirubin 0.1 L Direct Bilirubin 0.00 Indirect Bilirubin 0.1 Aspartate Amino Transf (AST/SGOT) 15 Alanine Aminotransferase (ALT/SGPT) 25 Alkaline Phosphatase 46 Total Protein 5.8 L Albumin 3.1 L Globulin 2.70 Albumin/Globulin Ratio 1.14 Amylase Level 185 H Lipase 590 H Exam/Review of Systems Vital Signs Vitals Vital Signs Date Temp Pulse Resp B/P (MAP) Pulse Ox O2 O2 Flow FiO2 Time Delivery Rate 05/02/18 98.8 76 18 103/50 96 08:00 (67) 05/01/18 Room Air 02:17 Intake and Output 05/01/18 05/01/18 05/02/18 1515:00 23:00 07:00 IntakeIntake Total 1000 ml 800 ml OutputOutput Total 450 ml BalanceBalance 1000 ml 350 ml Medications Medications Current Medications IV Flush (NS 3 ml) 3 ml PER PROTOCOL IV ; Start 05/01/18 at 05:00 Ondansetron HCl (Zofran Inj) 4 mg Q6H PRN IV NAUSEA AND/OR VOMITING; Start 05/01/18 at 05:00 Acetaminophen (Tylenol Tab) 650 mg Q6H PRN PO PAIN LEVEL 1-3 OR FEVER Last administered on 05/01/18at 09:42; Admin Dose 650 MG; Start 05/01/18 at 05:00 Docusate Sodium (Colace) 100 mg Q12H PRN PO CONSTIPATION; Start 05/01/18 at 05:00 Magnesium Hydroxide (Milk Of Mag) 30 ml DAILY PRN PO CONSTIPATION; Start 05/01/18 at 05:00 Bisacodyl (Dulcolax Supp) 10 mg DAILY PRN [place] CONSTIPATION; Start 05/01/18 at 05:00 Famotidine (Pepcid Iv) 20 mg Q12 IV Last administered on 05/02/18at 08:39; Admin Dose 20 MG; Start 05/01/18 at 09:00 Dextrose/Sodium Chloride 1,000 ml @ 125 mls/hr Q8H IV Last administered on 05/02/18at 12:02; Admin Dose 125 MLS/HR; Start 05/01/18 at 05:00 Morphine Sulfate (morphine SULFATE (PF)) 2 mg Q4H PRN IV SEVERE PAIN LEVEL 7- 10; Start 05/01/18 at 05:00 RUDY ROSA May 02, 2018 13:03
[2018-05-02 14:00] VITALS: BP 100/52; PULSE 68; RESP 18
--- NOTE | 2018-05-02 18:56 | NUR ---
Pt with stable vitals throughout shift. Tolerating current treatment regimen. No c/o pain or discomfort throughout the day. Tolerating clear liquid diet. Will continue to monitor and endorse to next shift.
[2018-05-02 20:00] VITALS: BP 107/51; PULSE 64; RESP 18
[2018-05-02] MEDS: ACETAMINOPHEN 325 MG TAB PO PRN (22:18)
[2018-05-03 02:00] VITALS: BP 108/53; PULSE 61; RESP 18
--- NOTE | 2018-05-03 04:41 | NUR ---
pt alert,oriented x4, no sob, per pt she has on and off abdominal pain, gave tylenol 650 mg tab as prescribed, effective. on clear liquids diet, tolerated well. no nausea and vomiting noted. FHR monitoring done by L&D nurse, FHR-[id number]
[2018-05-03] MEDS: DEXTROSE 5%-0.9% NACL 1,000 ML IV SCH ×2 (05:11→14:21)
[2018-05-03 08:17] VITALS: BP 94/55; PULSE 64; RESP 17
[2018-05-03] MEDS: FAMOTIDINE 20 MG INJ IV SCH ×2 (08:22→20:38)
--- NOTE | 2018-05-03 12:47 | PN ---
Date/Time of Note Date/Time of Note DATE: 05/03/18 TIME: 12:34 Assessment/Plan VTE Prophylaxis Risk score (from Ns)>0 risk: 2 SCD applied (from Ns): Yes Pharmacological prophylaxis: NA/contraindicated Pharm contraindication: low risk/ambulating Lines/Catheters IV Catheter Type (from Nrs): Peripheral IV Assessment/Plan Assessment/Plan 18-year-old female with: 1. Acute pancreatitis with possible chronic component based on MRCP. Patient currently with intermittent epigastric pain, she had an episode overnight 10/23, amylase and lipase increasing back up this a.m. Awaiting GI recommendations Currently on clear liquid diet. Appreciate evaluation and recommendations from OB. Continue IV fluids, repeat labs in a.m. 2. , patient is in her second trimester, she is a 17 weeks and 3 days, fetus viable per OB ultrasound. Patient remains stable. Appreciate evaluation and recommendations from OB. Monitoring heartbeat daily while inpatient. Prophylaxis: Pepcid for GI prophylaxis, SCDs for DVT prophylaxis Disposition: Clear liquid diet, IV fluids, awaiting GI recommendations today regarding ? Need for ERCP and if so that the patient is to be transferred. Result Diagram: 05/03/18 0501 05/03/18 0501 Results 24hrs Laboratory Tests Test 05/03/18 05:01 White Blood Count 7.7 Red Blood Count 3.20 L Hemoglobin 10.5 L Hematocrit 30.8 L Mean Corpuscular Volume 96.3 Mean Corpuscular Hemoglobin 32.8 Mean Corpuscular Hemoglobin Concent 34.1 Red Cell Distribution Width 12.5 Platelet Count 163 Mean Platelet Volume 11.0 H Immature Granulocytes % 0.700 H Neutrophils % 64.9 Lymphocytes % 26.9 Monocytes % 6.0 Eosinophils % 1.2 Basophils % 0.3 Nucleated Red Blood Cells % 0.0 Immature Granulocytes # 0.050 H Neutrophils # 5.0 Lymphocytes # 2.1 Monocytes # 0.5 Eosinophils # 0.1 Basophils # 0.0 Nucleated Red Blood Cells # 0.0 Sodium Level 136 Potassium Level 4.0 Chloride Level 105 Carbon Dioxide Level 25 Anion Gap 6 Blood Urea Nitrogen 4 L Creatinine 0.45 Est Glomerular Filtrat Rate mL/min > 60 Glucose Level 74 Calcium Level 8.4 Total Bilirubin 0.1 L Direct Bilirubin 0.00 Indirect Bilirubin 0.1 Aspartate Amino Transf (AST/SGOT) 19 Alanine Aminotransferase (ALT/SGPT) 22 Alkaline Phosphatase 46 Total Protein 6.1 Albumin 3.2 L Globulin 2.90 Albumin/Globulin Ratio 1.10 Amylase Level 183 H Lipase 810 H Subjective 24 Hr Interval Summary Free Text/Dictation Patient remains stable, however again she had an episode of severe epigastric pain / overnight for which she has Tylenol for. And this morning she had another mild episode /. She is on clears, pancreatic enzymes has gone up this morning. Awaiting GI recommendations. Exam/Review of Systems Vital Signs Vitals Vital Signs Date Temp Pulse Resp B/P (MAP) Pulse Ox O2 O2 Flow FiO2 Time Delivery Rate 05/03/18 98.1 64 17 94/55 (68) 100 Room Air 08:17 Intake and Output 05/02/18 05/02/18 05/03/18 1414:59 22:59 06:59 IntakeIntake Total 1000 ml 1350 ml 1000 ml BalanceBalance 1000 ml 1350 ml 1000 ml Exam Constitutional: alert, oriented, well developed Respiratory: clear to auscultation, normal air movement Cardiovascular: regular rate and rhythm, nl pulses Gastrointestinal: soft, non-tender Genitourinary - Female: uterus (Gravid, 17 weeks and 3 days) Musculoskeletal: nl extremities to inspection, nl gait and stance Extremities: normal pulses, other (No edema, clubbing or cyanosis) 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, nl mental status, nl speech, nl strength Medications Medications Current Medications IV Flush (NS 3 ml) 3 ml PER PROTOCOL IV ; Start 05/01/18 at 05:00 Ondansetron HCl (Zofran Inj) 4 mg Q6H PRN IV NAUSEA AND/OR VOMITING; Start 05/01/18 at 05:00 Acetaminophen (Tylenol Tab) 650 mg Q6H PRN PO PAIN LEVEL 1-3 OR FEVER Last administered on 05/02/18at 22:18; Admin Dose 650 MG; Start 05/01/18 at 05:00 Docusate Sodium (Colace) 100 mg Q12H PRN PO CONSTIPATION; Start 05/01/18 at 05:00 Magnesium Hydroxide (Milk Of Mag) 30 ml DAILY PRN PO CONSTIPATION; Start 05/01/18 at 05:00 Bisacodyl (Dulcolax Supp) 10 mg DAILY PRN OR CONSTIPATION; Start 05/01/18 at 05:00 Famotidine (Pepcid Iv) 20 mg Q12 IV Last administered on 05/03/18at 08:22; Admin Dose 20 MG; Start 05/01/18 at 09:00 Dextrose/Sodium Chloride 1,000 ml @ 125 mls/hr Q8H IV Last administered on 05/03/18at 05:11; Admin Dose 125 MLS/HR; Start 05/01/18 at 05:00 Morphine Sulfate (morphine SULFATE (PF)) 2 mg Q4H PRN IV SEVERE PAIN LEVEL 7- 10; Start 05/01/18 at 05:00 MIKEY HAMMOND May 03, 2018 12:45
--- NOTE | 2018-05-03 13:09 | PN ---
Date/Time of Note Date/Time of Note DATE: 05/03/18 TIME: 13:04 Assessment/Plan VTE Prophylaxis Risk score (from Ns)>0 risk: 2 SCD applied (from Ns): Yes Pharmacological prophylaxis: NA/contraindicated Pharm contraindication: other Lines/Catheters [facility]from [facility]): Peripheral IV Assessment/Plan Assessment/Plan Assessment: Acute pancreatitis, gallstone? -MRCP- No evidence of choledocholithiasis or biliary ductal dilatation Single live intrauterine gestation of approximately 17 weeks 4 days on 05/01/17 Plan: MRCP-negative for choledocholithiasis Continue clear liquid diet Continue to monitor labs Patient seen in collaboration with Dr. Mahmood/Jeffrey Subjective: Patient is doing well. She denies abdominal pain. Last pain medication was given yesterday. Lipase went up to 810 today. Amylase unchanged. MRCP- neg for choledocholithiasis therefore ERCP not indicated at this time. Continue observation. PHYSICAL EXAMINATION: GENERAL: Well developed, well nourished, alert & oriented x 3, in no acute distress SKIN: No lesions EYES: Pupils equal reactive to light, no discharge. EARS/NOSE AND THROAT: Ears normal, nose normal, oropharynx normal NECK: Supple, no masses. CHEST: Inspection within normal limits. CARDIOVASCULAR: Heart: Regular rate and rhythm RESPIRATORY: Lungs clear to auscultation GASTROINTESTINAL AND LIVER: Abdomen: Soft, non tenderness, distended, 17 weeks , no hernias, normoactive bowel sounds. Rectal: Deferred. GENITOURINARY: Not examined EXTREMITIES: No cyanosis, clubbing or edema. Result Diagram: 05/03/18 0501 05/03/18 0501 Results 24hrs Laboratory Tests Test 05/03/18 05:01 White Blood Count 7.7 Red Blood Count 3.20 L Hemoglobin 10.5 L Hematocrit 30.8 L Mean Corpuscular Volume 96.3 Mean Corpuscular Hemoglobin 32.8 Mean Corpuscular Hemoglobin Concent 34.1 Red Cell Distribution Width 12.5 Platelet Count 163 Mean Platelet Volume 11.0 H Immature Granulocytes % 0.700 H Neutrophils % 64.9 Lymphocytes % 26.9 Monocytes % 6.0 Eosinophils % 1.2 Basophils % 0.3 Nucleated Red Blood Cells % 0.0 Immature Granulocytes # 0.050 H Neutrophils # 5.0 Lymphocytes # 2.1 Monocytes # 0.5 Eosinophils # 0.1 Basophils # 0.0 Nucleated Red Blood Cells # 0.0 Sodium Level 136 Potassium Level 4.0 Chloride Level 105 Carbon Dioxide Level 25 Anion Gap 6 Blood Urea Nitrogen 4 L Creatinine 0.45 Est Glomerular Filtrat Rate mL/min > 60 Glucose Level 74 Calcium Level 8.4 Total Bilirubin 0.1 L Direct Bilirubin 0.00 Indirect Bilirubin 0.1 Aspartate Amino Transf (AST/SGOT) 19 Alanine Aminotransferase (ALT/SGPT) 22 Alkaline Phosphatase 46 Total Protein 6.1 Albumin 3.2 L Globulin 2.90 Albumin/Globulin Ratio 1.10 Amylase Level 183 H Lipase 810 H CC: JANAK MAHMOOD MD ; Exam/Review of Systems Vital Signs Vitals Vital Signs Date Temp Pulse Resp B/P (MAP) Pulse Ox O2 O2 Flow FiO2 Time Delivery Rate 05/03/18 98.1 64 17 94/55 (68) 100 Room Air 08:17 Intake and Output 05/02/18 05/02/18 05/03/18 1515:00 23:00 07:00 IntakeIntake Total 1000 ml 1350 ml 1000 ml BalanceBalance 1000 ml 1350 ml 1000 ml Medications Medications Current Medications IV Flush (NS 3 ml) 3 ml PER PROTOCOL IV ; Start 05/01/18 at 05:00 Ondansetron HCl (Zofran Inj) 4 mg Q6H PRN IV NAUSEA AND/OR VOMITING; Start 05/01/18 at 05:00 Acetaminophen (Tylenol Tab) 650 mg Q6H PRN PO PAIN LEVEL 1-3 OR FEVER Last administered on 05/02/18at 22:18; Admin Dose 650 MG; Start 05/01/18 at 05:00 Docusate Sodium (Colace) 100 mg Q12H PRN PO CONSTIPATION; Start 05/01/18 at 05:00 Magnesium Hydroxide (Milk Of Mag) 30 ml DAILY PRN PO CONSTIPATION; Start 05/01/18 at 05:00 Bisacodyl (Dulcolax Supp) [address] CONSTIPATION; Start 05/01/18 at 05:00 Famotidine (Pepcid Iv) 20 mg Q12 IV Last administered on 05/03/18at 08:22; Admin Dose 20 MG; Start 05/01/18 at 09:00 Dextrose/Sodium Chloride 1,000 ml @ 125 mls/hr Q8H IV Last administered on 05/03/18at 05:11; Admin Dose 125 MLS/HR; Start 05/01/18 at 05:00 Morphine Sulfate (morphine SULFATE (PF)) 2 mg Q4H PRN IV SEVERE PAIN LEVEL 7-1 0; Start 05/01/18 at 05:00 RALEIGH MALAVE NP May 03, 2018 13:09
[2018-05-03 14:10] VITALS: BP 96/51; PULSE 71; RESP 20
--- NOTE | 2018-05-03 19:33 | NUR ---
Patient with stable vitals throughout shift. Tolerating clear liquid diet without c/o pain or discomfort. Will endorse to next shift.
[2018-05-03 20:30] VITALS: BP 119/53; PULSE 77; RESP 18
--- NOTE | 2018-05-03 21:12 | NUR ---
Pt wanted to leave AMA. She states she is not sure of the plan of care and there is no point on staying here if she is going to be transferred to another hospital in case she needs surgery. Explained to pt that for now the plan of care is to keep her diet clear liquids and to monitor her labs (pancreatic enzymes). Explained to pt that if she leaves AMA we cannot give her any paperwork or prescriptions if needed. Encouraged pt to stay for the night and to talk to MD in the morning to see what's gonna be the next step. Pt agreed. Will endorse this communication to charge nurse.
[2018-05-04] MEDS: DEXTROSE 5%-0.9% NACL 1,000 ML IV SCH ×4 (00:19→18:35)
[2018-05-04 02:00] VITALS: BP 104/58; PULSE 62; RESP 18
[2018-05-04] MEDS: ACETAMINOPHEN 325 MG TAB PO PRN (05:35)
--- NOTE | 2018-05-04 07:00 | NUR ---
pt complained of pain ,abdominal pain , 7/10. tylenol given as prescribed, effective. on clear liquid diet. no nausea and vomiting noted
[2018-05-04] MEDS: FAMOTIDINE 20 MG INJ IV SCH ×2 (08:36→20:25)
[2018-05-04 08:44] VITALS: BP 103/48; PULSE 63; RESP 17
--- NOTE | 2018-05-04 12:18 | PN ---
Date/Time of Note Date/Time of Note DATE: 05/04/18 TIME: 12:15 Assessment/Plan VTE Prophylaxis Risk score (from Ns)>0 risk: 2 SCD applied (from Ns): No SCD contraindicated: other (scds) Pharmacological prophylaxis: other (scds) Lines/Catheters IV [facility] (from [facility]): Peripheral IV Assessment/Plan Hospital Course Assessment/Plan Assessment: Acute pancreatitis, gallstone? -MRCP- No evidence of choledocholithiasis or biliary ductal dilatation Enlarged edematous pancreatic head with moderate atrophy of the pancreatic body and tail. Irregular [id number] dilation of main pancreatic duct in the body and tail of the pancreas with abrupt cutoff in the neck. Findings could represent focal pancreatitis superimposed on chronic pancreatitis with possible stricture of the pancreatic duct in the neck or pancreatic head mass. Single live intrauterine gestation of approximately 17 weeks 4 days on 05/01/17 Plan: MRCP-negative for choledocholithiasis Strict NPO Continue to monitor labs Patient seen in collaboration with Dr. Mahmood/Jeffrey Subjective: Patient states her pain has improved from this am, Discussed results of Labs, discussed need to maintain strict NPO status Pt verbalized understanding and is agreeable. PHYSICAL EXAMINATION: GENERAL: Well developed, well nourished, alert & oriented x 3, in no acute distress SKIN: No lesions EYES: Pupils equal reactive to light, no discharge. EARS/NOSE AND THROAT: Ears normal, nose normal, oropharynx normal NECK: Supple, no masses. CHEST: Inspection within normal limits. CARDIOVASCULAR: Heart: Regular rate and rhythm RESPIRATORY: Lungs clear to auscultation GASTROINTESTINAL AND LIVER: Abdomen: Soft, non tenderness, distended, 17 weeks , no hernias, normoactive bowel sounds. Rectal: Deferred. GENITOURINARY: Not examined EXTREMITIES: No cyanosis, clubbing or edema. MRCP IMPRESSION: 1. Enlarged edematous pancreatic head with moderate atrophy of the pancreatic body and tail. Irregular [id number] dilation of main pancreatic duct in the body and tail of the pancreas with abrupt cutoff in the neck. Findings could represent focal pancreatitis superimposed on chronic pancreatitis with possible stricture of the pancreatic duct in the neck or pancreatic head mass. Further evaluation is limited due to lack of intravenous contrast. Consider further evaluation with endoscopic ultrasound or contrast enhanced MRI when clinically appropriate. 2. Cholelithiasis without MR evidence of acute cholecystitis. 3. No evidence of choledocholithiasis or biliary ductal dilatation. 4. Duplicated right renal collecting system with mild bilateral hydronephrosis. Result Diagram: 05/03/18 0501 05/04/18 0538 Results 24hrs Laboratory Tests Test 05/04/18 05:38 Sodium Level 137 Potassium Level 4.0 Chloride Level 106 Carbon Dioxide Level 23 Anion Gap 8 Blood Urea Nitrogen 5 L Creatinine 0.40 L Est Glomerular Filtrat Rate mL/min > 60 Glucose Level 93 Calcium Level 8.7 Total Bilirubin 0.3 Direct Bilirubin 0.00 Indirect Bilirubin 0.3 Aspartate Amino Transf (AST/SGOT) 22 Alanine Aminotransferase (ALT/SGPT) 21 Alkaline Phosphatase 60 Total Protein 6.1 Albumin 3.4 Globulin 2.70 Albumin/Globulin Ratio 1.25 Amylase Level 520 #H Lipase 5685 H Exam/Review of Systems Vital Signs Vitals Vital Signs Date Temp Pulse Resp B/P (MAP) Pulse Ox O2 O2 Flow FiO2 Time Delivery Rate 05/04/18 98.2 63 17 103/48 98 Room Air 08:44 (66) Intake and Output 05/03/18 05/03/18 05/04/18 1515:00 23:00 07:00 IntakeIntake Total 1400 ml 800 ml 1100 ml BalanceBalance 1400 ml 800 ml 1100 ml Medications Medications Current Medications IV Flush (NS 3 ml) 3 ml PER PROTOCOL IV ; Start 05/01/18 at 05:00 Ondansetron HCl (Zofran Inj) 4 mg Q6H PRN IV NAUSEA AND/OR VOMITING; Start 05/01/18 at 05:00 Acetaminophen (Tylenol Tab) 650 mg Q6H PRN PO PAIN LEVEL 1-3 OR FEVER Last administered on 05/04/18at 05:35; Admin Dose 650 MG; Start 05/01/18 at 05:00 Docusate Sodium (Colace) 100 mg Q12H PRN PO CONSTIPATION; Start 05/01/18 at 05:00 Magnesium Hydroxide (Milk Of Mag) 30 ml DAILY PRN PO CONSTIPATION; Start 05/01/18 at 05:00 Bisacodyl (Dulcolax Supp) 10 mg DAILY PRN [place] CONSTIPATION; Start 05/01/18 at 05:00 Famotidine (Pepcid Iv) 20 mg Q12 IV Last administered on 05/04/18at 08:36; Admin Dose 20 MG; Start 05/01/18 at 09:00 Dextrose/Sodium Chloride 1,000 ml @ 125 mls/hr Q8H IV Last administered on 05/04/18at 08:37; Admin Dose 125 MLS/HR; Start 05/01/18 at 05:00 Morphine Sulfate (morphine SULFATE (PF)) 2 mg Q4H PRN IV SEVERE PAIN LEVEL 7- 10; Start 05/01/18 at 05:00 RUDY ROSA May 04, 2018 12:18
--- NOTE | 2018-05-04 13:34 | PN ---
Date/Time of Note Date/Time of Note DATE: 05/04/18 TIME: 13:12 Assessment/Plan VTE Prophylaxis Risk score (from Ns)>0 risk: 2 SCD applied (from Ns): Yes Pharmacological prophylaxis: NA/contraindicated Pharm contraindication: low risk/ambulating, other ( ) Lines/Catheters IV Catheter Type (from [facility]): Peripheral IV Assessment/Plan Assessment/Plan 18-year-old female with: 1. Acute pancreatitis with possible chronic component based on MRCP. Patient currently with intermittent epigastric pain, she had an episode overnight 10/23 again last night, and amylase and lipase significantly elevated this morning. Discussed with GI, patient to go back on strict n.p.o. Reevaluate labs and clinically in a.m. for further recommendations. MRCP per radiology did suggest focal acute on chronic pancreatitis with possibility of pancreatic duct stricture at the level of the head or neck of the pancreas also possible mass Continue IV fluids. 2. , patient is in her second trimester, she is a 17 weeks and 3 days, fetus viable per OB ultrasound. Patient remains stable. Appreciate evaluation and recommendations from OB. Monitoring heartbeat daily while inpatient. Prophylaxis: Pepcid for GI prophylaxis, SCDs for DVT prophylaxis Disposition: Back to strict n.p.o., continue IV fluids, follow-up further GI recommendations in a.m. regarding ?Need for ERCP and/or endoscopic ultrasound and if so if the patient needs to be transferred. Result Diagram: 05/03/18 0501 05/04/18 0538 Results 24hrs Laboratory Tests Test 05/04/18 05:38 Sodium Level 137 Potassium Level 4.0 Chloride Level 106 Carbon Dioxide Level 23 Anion Gap 8 Blood Urea Nitrogen 5 L Creatinine 0.40 L Est Glomerular Filtrat Rate mL/min > 60 Glucose Level 93 Calcium Level 8.7 Total Bilirubin 0.3 Direct Bilirubin 0.00 Indirect Bilirubin 0.3 Aspartate Amino Transf (AST/SGOT) 22 Alanine Aminotransferase (ALT/SGPT) 21 Alkaline Phosphatase 60 Total Protein 6.1 Albumin 3.4 Globulin 2.70 Albumin/Globulin Ratio 1.25 Amylase Level 520 #H Lipase 5685 H Subjective 24 Hr Interval Summary Free Text/Dictation Patient with episode of severe abdominal pain overnight, 10. And this a.m., pancreatic enzymes significantly elevated. Patient now back to strict n.p.o., GI on board. Exam/Review of Systems Vital Signs Vitals Vital Signs Date Temp Pulse Resp B/P (MAP) Pulse Ox O2 O2 Flow FiO2 Time Delivery Rate 05/04/18 98.2 63 17 103/48 98 Room Air 08:44 (66) Intake and Output 05/03/18 05/03/18 05/04/18 1515:00 23:00 07:00 IntakeIntake Total 1400 ml 800 ml 1100 ml BalanceBalance 1400 ml 800 ml 1100 ml Exam Constitutional: alert, oriented, well developed Respiratory: clear to auscultation, normal air movement Cardiovascular: regular rate and rhythm, nl pulses Gastrointestinal: soft, non-tender Genitourinary - Female: uterus (Gravid) Musculoskeletal: nl extremities to inspection, nl gait and stance Extremities: normal pulses, other (No edema, clubbing or cyanosis) Neurological: QUALITY ASSURANCE CALIBRATOR II-XII intact, nl mental status, nl speech, nl strength Medications Medications Current Medications IV Flush (NS 3 ml) 3 ml PER PROTOCOL IV ; Start 05/01/18 at 05:00 Ondansetron HCl (Zofran Inj) 4 mg Q6H PRN IV NAUSEA AND/OR VOMITING; Start 05/01/18 at 05:00 Acetaminophen (Tylenol Tab) 650 mg Q6H PRN PO PAIN LEVEL 1-3 OR FEVER Last administered on 05/04/18at 05:35; Admin Dose 650 MG; Start 05/01/18 at 05:00 Docusate Sodium (Colace) 100 mg Q12H PRN PO CONSTIPATION; Start 05/01/18 at 05:00 Magnesium Hydroxide (Milk Of Mag) 30 ml DAILY PRN PO CONSTIPATION; Start 05/01/18 at 05:00 Bisacodyl (Dulcolax Supp) 10 mg DAILY PRN [place] CONSTIPATION; Start 05/01/18 at 05:00 Famotidine (Pepcid Iv) 20 mg Q12 IV Last administered on 05/04/18at 08:36; Admin Dose 20 MG; Start 05/01/18 at 09:00 Dextrose/Sodium Chloride 1,000 ml @ 125 mls/hr Q8H IV Last administered on 05/04/18at 08:37; Admin Dose 125 MLS/HR; Start 05/01/18 at 05:00 Morphine Sulfate (morphine SULFATE (PF)) 2 mg Q4H PRN IV SEVERE PAIN LEVEL 7- 10; Start 05/01/18 at 05:00 Imaging Imaging PROCEDURE: MRI Abdomen without contrast CLINICAL INDICATION: patient with abdominal pain and acute pancreatitis. TECHNIQUE: Multiplanar multisequence magnetic resonance imaging examination of the abdomen was performed without intravenous gadolinium contrast according to MRCP protocol. COMPARISON: Abdominal sonogram dated 04/30/2018. FINDINGS: Multiple small gallstones are seen in the gallbladder without gallbladder wall thickening. There is no intrahepatic or extrahepatic biliary ductal dilatation. No intraductal filling defect is identified. Pancreatic head is enlarged and edematous. Pancreatic body and tail are moderately atrophic. There is irregular mild to moderate dilation of main pancreatic duct in the body and tail of the pancreas. Liver, spleen, and adrenal glands are within normal limits. There is a duplicated right renal collecting system. There is mild bilateral hydronephrosis. Multiple subcentimeter T2 hyperintense bilateral renal lesions l stuart represent cysts. There is no ascites. There is an 8 x 3 x 3 cm loculated fluid collection exte nding from the tail of the pancreas along the left anterior pararenal space. There is no abdominal aortic aneurysm. There is no mesenteric or retroperitoneal lymphadenopathy. Gravid uterus is partially seen. Visualized bowel loops are unremarkable. Bone marrow signal intensity is within normal limi ts. IMPRESSION: 1. Enlarged edematous pancreatic head with moderate atrophy of the pancreatic b yaima and tail. Irregular eupn-[id number] dilation of main pancreatic duct in the body and tail of the pancreas with abrupt cutoff in the neck. Findings could represent focal pancreatitis superimposed on chronic pancreatitis with possible stricture of the pancreatic duct in the neck or pancreatic head mass. Further evaluation is limited due to lack of intravenous contrast. Consider further evaluation with endoscopic ultrasound or contrast enhanced MRI when clinically appropriate. 2. Cholelithiasis without MR evidence of acute cholecystitis. 3. No evidence of choledocholithiasis or biliary ductal dilatation. 4. Duplicated right renal collecting system with mild bilateral hydronephrosis. RPTAT:HAJM Physician Fide Date Time Electronically viewed and signed by Physician Fide on 05/01/2018 18:20 MIKEY HAMMOND May 04, 2018 13:22
[2018-05-04 14:00] VITALS: BP 106/54; PULSE 65; RESP 17
--- NOTE | 2018-05-04 17:52 | NUR ---
RN Notes: Patient remain alert and oriented, afebrile, breathing even and unlabored, no sob noted, denies pain/discomfort, no n/v noted. Dr. Patel aware regarding elevated Amylase and Lipase, kept pt NPO. Pt aware. L & D came and checked pt's heart tone. Hourly rounding done, call light within reach. Reeducated regarding safety measures. No significant events during this shift. Will continue to monitor and will endorse for continuity of care
[2018-05-04 20:00] VITALS: BP 98/57; PULSE 60; RESP 18
[2018-05-05 02:00] VITALS: BP 92/50; RESP 17
[2018-05-05] MEDS: DEXTROSE 5%-0.9% NACL 1,000 ML IV SCH ×3 (02:16→18:10)
[2018-05-05] MEDS: FAMOTIDINE 20 MG INJ IV SCH ×2 (08:10→21:02)
[2018-05-05 08:58] VITALS: BP 99/49; PULSE 65; RESP 18
--- NOTE | 2018-05-05 11:33 | PN ---
Date/Time of Note Date/Time of Note DATE: 05/05/18 TIME: 11:27 Assessment/Plan VTE Prophylaxis Risk score (from Ns)>0 risk: 2 SCD applied (from Ns): No SCD contraindicated: low risk/ambulating Pharmacological prophylaxis: NA/contraindicated Pharm contraindication: low risk/ambulating, other () Lines/Catheters IV Catheter Type (from [facility]): Peripheral IV Assessment/Plan Assessment/Plan 18-year-old female with: 1. Acute pancreatitis with possible chronic component based on MRCP. Pancreatic enzymes dropped back down and almost close to normal. Patient denies any pain over the past 18 hours at least. She is n.p.o. We will keep n.p.o. today. Continue IV fluids. Follow-up further GI recommendations. MRCP per radiology did suggest focal acute on chronic pancreatitis with possibility of pancreatic duct stricture at the level of the head or neck of the pancreas also possible mass, I did discuss the case with Dr. Murphy yesterday, if needed, next step would be to get EUS which would be less invasive than ERCP in her case and as suggested on MRCP. To do so she would need to be transferred to a facility with capability for EUS and OB on site, [facility] as EUS and will be. Otherwise he would be a tertiary level of care. 2. , patient is in her second trimester, she is a 17 weeks and 3 days, fetus viable per OB ultrasound. Patient remains stable. Appreciate evaluation and recommendations from OB. Monitoring heartbeat daily while inpatient. Prophylaxis: Pepcid for GI prophylaxis, SCDs for DVT prophylaxis Disposition: Maintain on n.p.o. for today, continue IV fluids, follow-up labs and clinically in a.m. for further decision-making regarding ?Need for ERCP and/or endoscopic ultrasound and if so if the patient needs to be transferred. Result Diagram: 05/03/18 0501 05/05/18 0513 Results 24hrs Laboratory Tests Test 05/05/18 05:13 Sodium Level 137 Potassium Level 4.0 Chloride Level 108 Carbon Dioxide Level 23 Anion Gap 6 Blood Urea Nitrogen 4 L Creatinine 0.42 L Est Glomerular Filtrat Rate mL/min > 60 Glucose Level 88 Calcium Level 8.4 Total Bilirubin 0.1 L Direct Bilirubin 0.00 Indirect Bilirubin 0.1 Aspartate Amino Transf (AST/SGOT) 20 Alanine Aminotransferase (ALT/SGPT) 21 Alkaline Phosphatase 61 Total Protein 5.8 L Albumin 3.2 L Globulin 2.60 Albumin/Globulin Ratio 1.23 Amylase Level 185 #H Lipase 374 H Subjective 24 Hr Interval Summary Free Text/Dictation Patient's pancreatic enzymes drastically dropped down close to normal today, patient has been n.p.o. for 24 hours. Will keep n.p.o. for now. No pain that she is reporting. Follow GI recommendations today. Exam/Review of Systems Vital Signs Vitals Vital Signs Date Temp Pulse Resp B/P (MAP) Pulse Ox O2 O2 Flow FiO2 Time Delivery Rate 05/05/18 97.8 65 18 99/49 (66) 100 Room Air 08:58 Intake and Output 05/04/18 05/04/18 05/05/18 1515:00 23:00 07:00 IntakeIntake Total 500 ml 1000 ml 1375 ml BalanceBalance 500 ml 1000 ml 1375 ml Exam Constitutional: alert, oriented, well developed Respiratory: clear to auscultation, normal air movement Cardiovascular: regular rate and rhythm, nl pulses Gastrointestinal: soft Genitourinary - Female: uterus (Gravid, 17 weeks .) Extremities: normal pulses, other (No edema, clubbing or cyanosis) Neurological: MEDICAL STAFFING COORDINATOR II-XII intact, nl mental status, nl speech, nl strength Medications Medications Current Medications IV Flush (NS 3 ml) 3 ml PER PROTOCOL IV ; Start 05/01/18 at 05:00 Ondansetron HCl (Zofran Inj) 4 mg Q6H PRN IV NAUSEA AND/OR VOMITING; Start 05/01/18 at 05:00 Acetaminophen (Tylenol Tab) 650 mg Q6H PRN PO PAIN LEVEL 1-3 OR FEVER Last administered on 05/04/18at 05:35; Admin Dose 650 MG; Start 05/01/18 at 05:00 Docusate Sodium (Colace) 100 mg Q12H PRN PO CONSTIPATION; Start 05/01/18 at 05:00 Magnesium Hydroxide (Milk Of Mag) 30 ml DAILY PRN PO CONSTIPATION; Start 05/01/18 at 05:00 Bisacodyl (Dulcolax Supp) 10 mg DAILY PRN [place] CONSTIPATION; Start 05/01/18 at 05:00 Famotidine (Pepcid Iv) 20 mg Q12 IV Last administered on 05/05/18at 08:10; Admin Dose 20 MG; Start 05/01/18 at 09:00 Dextrose/Sodium Chloride 1,000 ml @ 125 mls/hr Q8H IV Last administered on 05/05/18at 10:53; Admin Dose 125 MLS/HR; Start 05/01/18 at 05:00 Morphine Sulfate (morphine SULFATE (PF)) 2 mg Q4H PRN IV SEVERE PAIN LEVEL 7- 10; Start 05/01/18 at 05:00 MIKEY HAMMOND May 05, 2018 11:33
[2018-05-05 14:29] VITALS: BP 100/55; PULSE 52; RESP 18
--- NOTE | 2018-05-05 15:40 | PN ---
Date/Time of Note Date/Time of Note DATE: 05/05/18 TIME: 15:32 Assessment/Plan VTE Prophylaxis Risk score (from Nsg)>0 risk: 2 SCD applied (from Nsg): No SCD contraindicated: other (scds) Pharmacological prophylaxis: other (scds) Lines/Catheters IV [facility]atheter Type (from [facility]): Peripheral IV Assessment/Plan Hospital Course Assessment/Plan Assessment: Acute pancreatitis, gallstone? -MRCP- No evidence of choledocholithiasis or biliary ductal dilatation Enlarged edematous pancreatic head with moderate atrophy of the pancreatic body and tail. Irregular mbgs-gi-[id number] dilation of main pancreatic duct in the body and tail of the pancreas with abrupt cutoff in the neck. Findings could represent focal pancreatitis superimposed on chronic pancreatitis with possible stricture of the pancreatic duct in the neck or pancreatic head mass. Single live intrauterine gestation of approximately 17 weeks 4 days on 05/01/17 Plan: Continue NPO status today Clinically, patient appears to be improving today. No c/o abd pain- lipase/amylase sig down today vs yesterday Will reassess labs in am and well as patient's sx. If she remains pain free with sig increase in lipase/amylase plan to start clear liquid diet Will assess need in am if patient will require poss transfer for EUS procedure less likely ERCP Continue to monitor labs Patient seen in collaboration with Dr. Mahmood/Jeffrey Subjective/Free text: No c/o abdominal pain since last night, no c/o n/v Pt states she has been ambulating without difficulty Discussed labs today. Pt verbalized understanding- PHYSICAL EXAMINATION: GENERAL: Well developed, well nourished, alert & oriented x 3, in no acute distress SKIN: No lesions EYES: Pupils equal reactive to light, no discharge. EARS/NOSE AND THROAT: Ears normal, nose normal, oropharynx normal NECK: Supple, no masses. CHEST: Inspection within normal limits. CARDIOVASCULAR: Heart: Regular rate and rhythm RESPIRATORY: Lungs clear to auscultation GASTROINTESTINAL AND LIVER: Abdomen: Soft, non tenderness, distended, 17 weeks , no hernias, normoactive bowel sounds. Rectal: Deferred. GENITOURINARY: Not examined EXTREMITIES: No cyanosis, clubbing or edema. MRCP IMPRESSION: 1. Enlarged edematous pancreatic head with moderate atrophy of the pancreatic body and tail. Irregular ayro-fx-ywushivm dilation of main pancreatic duct in the body and tail of the pancreas with abrupt cutoff in the neck. Findings could represent focal pancreatitis superimposed on chronic pancreatitis with possible stricture of the pancreatic duct in the neck or pancreatic head mass. Further evaluation is limited due to lack of intravenous contrast. Consider further evaluation with endoscopic ultrasound or contrast enhanced MRI when clinically appropriate. 2. Cholelithiasis without MR evidence of acute cholecystitis. 3. No evidence of choledocholithiasis or biliary ductal dilatation. 4. Duplicated right renal collecting system with mild bilateral hydronephrosis. Result Diagram: 05/03/18 0501 05/05/18 0513 Results 24hrs Laboratory Tests Test 05/05/18 05:13 Sodium Level 137 Potassium Level 4.0 Chloride Level 108 Carbon Dioxide Level 23 Anion Gap 6 Blood Urea Nitrogen 4 L Creatinine 0.42 L Est Glomerular Filtrat Rate mL/min > 60 Glucose Level 88 Calcium Level 8.4 Total Bilirubin 0.1 L Direct Bilirubin 0.00 Indirect Bilirubin 0.1 Aspartate Amino Transf (AST/SGOT) 20 Alanine Aminotransferase (ALT/SGPT) 21 Alkaline Phosphatase 61 Total Protein 5.8 L Albumin 3.2 L Globulin 2.60 Albumin/Globulin Ratio 1.23 Amylase Level 185 #H Lipase 374 H Exam/Review of Systems Vital Signs Vitals Vital Signs Date Temp Pulse Resp B/P (MAP) Pulse Ox O2 O2 Flow FiO2 Time Delivery Rate 05/05/18 98.5 52 18 100/55 100 Room Air 14:29 (70) Intake and Output 05/04/18 05/04/18 05/05/18 1515:00 23:00 07:00 IntakeIntake Total 500 ml 1000 ml 1375 ml BalanceBalance 500 ml 1000 ml 1375 ml Medications Medications Current Medications IV Flush (NS 3 ml) 3 ml PER PROTOCOL IV ; Start 05/01/18 at 05:00 Ondansetron HCl (Zofran Inj) 4 mg Q6H PRN IV NAUSEA AND/OR VOMITING; Start 05/01/18 at 05:00 Acetaminophen (Tylenol Tab) 650 mg Q6H PRN PO PAIN LEVEL 1-3 OR FEVER Last administered on 05/04/18at 05:35; Admin Dose 650 MG; Start 05/01/18 at 05:00 Docusate Sodium (Colace) 100 mg Q12H PRN PO CONSTIPATION; Start 05/01/18 at 05:00 Magnesium Hydroxide (Milk Of Mag) 30 ml DAILY PRN PO CONSTIPATION; Start 05/01/18 at 05:00 Bisacodyl (Dulcolax Supp) 10 mg DAILY PRN OR CONSTIPATION; Start 05/01/18 at 05:00 Famotidine (Pepcid Iv) 20 mg Q12 IV Last administered on 05/05/18at 08:10; Admin Dose 20 MG; Start 05/01/18 at 09:00 Dextrose/Sodium Chloride 1,000 ml @ 125 mls/hr Q8H IV Last administered on 05/05/18at 10:53; Admin Dose 125 MLS/HR; Start 05/01/18 at 05:00 Morphine Sulfate (morphine SULFATE (PF)) 2 mg Q4H PRN IV SEVERE PAIN LEVEL 7- 10; Start 05/01/18 at 05:00 RUDY ROSA May 05, 2018 15:40
[2018-05-05 19:47] VITALS: BP 105/59; PULSE 73; RESP 17
[2018-05-06 02:07] VITALS: BP 99/50; PULSE 61; RESP 18
[2018-05-06] MEDS: DEXTROSE 5%-0.9% NACL 1,000 ML IV SCH ×2 (04:08→13:26)
--- NOTE | 2018-05-06 06:44 | NUR ---
Shift summary: Patient is alert and oriented. she had a shower last night. Patient denies pain, VSS. hourly rounding done. Patient is NPO except for ice chips. repeat lipase, amylase today.
[2018-05-06 08:00] VITALS: BP 98/54; PULSE 86; RESP 18
[2018-05-06] MEDS: FAMOTIDINE 20 MG INJ IV SCH ×2 (08:17→20:50)
--- NOTE | 2018-05-06 09:45 | NUR ---
RN seeing orders for TPN and transfer to tertiary hospital coming through and went to speak with patient regarding this. Patient says MD talked to her about restarting on PO diet. RN called MD to clarify who reported that specialist did not recommend PO diet and we will go ahead with obtaining PICC line and starting TPN when ready. RN discussed with patient and patient is agreeable to plan of care. RN made senior manager asset protection aware of plan so she may start looking for a bed at tertiary hospital.
--- NOTE | 2018-05-06 09:59 | NUR ---
[facility]/ [facility] IPA: MAVIS DE [place] [facility]OR[facility] [id number]/BRAYAN [phone] CALLED BRITT NOTIFIED RE ORDER DC TO [facility] [[email or web address]] WHEN BED IS AVAILABLE. AWAITS CALL BACK . NURSE LORIE WILL BE NOTIFIED WHEN BED IS AVAILABLE @ [facility] [[email or web address]]. Addendum: 05/06/18 at 1004 by KARYNA SERNA CM Amended: Links added. Addendum: 05/06/18 at 1247 by KARYNA SERNA CM RECEIVED FROM SURAJ G[facility] [place], FILLED UP AND PUT IN CHART AND FAXED TO DR. PINTO'S OFFCIE, MERE [place] SIGNATURE FOR THE TRANSFER. SPOKE TO PATIENT AWAKE AND ORIENTED, AGREED TO [place] [facility] Addendum: 05/06/18 at 1646 by KARYNA SERNA CM TRANSFER UPDATE : ALBERTO GAMBLE OF [facility] IN CHARGE OF TRANSFER [phone] , [facility] IS CONTRACTED [place] [facility], TOLD ME TO [place]X [facility] [place] REQUEST FORM TO [phone].NO NEED FOR MD SIGNATURE. AMBULANCE WILL BE ARRANGE BY [facility], ALBERTO WILL CALL ME REGARDING BED AND TRANSPORT BEFORE I GO HOME TODAY @ 5 PM. NOTIFIED NURSE ATTENDING LORIE AND CHARGE NURSE COLE HAMILTON PENDING TRANSFER [place] [facility] AND WILL BE GENERAL SCIENCE TEACHER BY AMBULANCE WHEN BED IS AVAILABLE. ACUTE TRANSFER FORM CONSENT SIGNED BY PATIENT WHO IS ALERT AND ORIENTED.ALSO SIGNED BY GRANDMOTHER, [facility] GAMBLE WILL CALL THE FLOOR WHEN ACCEPTED BY THE HOSPITAL SHE REFERRED PATIENT TO.
[2018-05-06] MEDS ORDERED: LIDOCAINE 1% (MPF) 5 ML VIAL SC ONE (10:00)
--- NOTE | 2018-05-06 10:32 | PN ---
Date/Time of Note Date/Time of Note DATE: 05/06/18 TIME: 10:31 Assessment/Plan VTE Prophylaxis Risk score (from Ns)>0 risk: 2 SCD applied (from Ns): Yes Pharmacological prophylaxis: other (scds) Lines/Catheters [facility] Peripheral IV Assessment/Plan Hospital Course Assessment/Plan Assessment: Acute pancreatitis, gallstone? -MRCP- No evidence of choledocholithiasis or biliary ductal dilatation Enlarged edematous pancreatic head with moderate atrophy of the pancreatic body and tail. Irregular nrsm-cc-swggocxx dilation of main pancreatic duct in t he body and tail of the pancreas with abrupt cutoff in the neck. Findings could represent focal pancreatitis superimposed on chronic pancreatitis with possible stricture of the pancreatic duct in the neck or pancreatic head mass. Single live intrauterine gestation of approximately 17 weeks 4 days on 05/01/17 Plan: PICC line/TPN Transfer to tertiary center Patient seen in collaboration with Dr. Mahmood/Jeffrey Subjective/Free text: Dr. Valles and Dr. Murphy spoke, Pt Pancreatic enzymes are slight up today. Pt without significant improved. Plan to transfer to tertiary center for further evaluation and poss EUS vs ERCP PHYSICAL EXAMINATION: GENERAL: Well developed, well nourished, alert & oriented x 3, in no acute distress SKIN: No lesions EYES: Pupils equal reactive to light, no discharge. EARS/NOSE AND THROAT: Ears normal, nose normal, oropharynx normal NECK: Supple, no masses. CHEST: Inspection within normal limits. CARDIOVASCULAR: Heart: Regular rate and rhythm RESPIRATORY: Lungs clear to auscultation GASTROINTESTINAL AND LIVER: Abdomen: Soft, non tenderness, distended, 17 weeks , no hernias, normoactive bowel sounds. Rectal: Deferred. GENITOURINARY: Not examined EXTREMITIES: No cyanosis, clubbing or edema. MRCP IMPRESSION: 1. Enlarged edematous pancreatic head with moderate atrophy of the pancreatic body and tail. Irregular puta-la-aodiqhhw dilation of main pancreatic duct in the body and tail of the pancreas with abrupt cutoff in the neck. Findings could represent focal pancreatitis superimposed on chronic pancreatitis with possible stricture of the pancreatic duct in the neck or pancreatic head mass. Further evaluation is limited due to lack of intravenous contrast. Consider further evaluation with endoscopic ultrasound or contrast enhanced MRI when clinically appropriate. 2. Cholelithiasis without MR evidence of acute cholecystitis. 3. No evidence of choledocholithiasis or biliary ductal dilatation. 4. Duplicated right renal collecting system with mild bilateral hydronephrosis. Result Diagram: 05/06/18 0534 05/06/18 0534 Results 24hrs Laboratory Tests Test 05/06/18 05:34 White Blood Count 7.7 Red Blood Count 2.97 L Hemoglobin 9.6 L Hematocrit 28.6 L Mean Corpuscular Volume 96.3 Mean Corpuscular Hemoglobin 32.3 Mean Corpuscular Hemoglobin Concent 33.6 Red Cell Distribution Width 12.3 Platelet Count 142 Mean Platelet Volume 11.0 H Immature Granulocytes % 0.400 Neutrophils % 67.1 Lymphocytes % 24.6 Monocytes % 6.3 Eosinophils % 1.3 Basophils % 0.3 Nucleated Red Blood Cells % 0.0 Immature Granulocytes # 0.030 Neutrophils # 5.1 Lymphocytes # 1.9 Monocytes # 0.5 Eosinophils # 0.1 Basophils # 0.0 Nucleated Red Blood Cells # 0.0 Sodium Level 136 Potassium Level 3.6 Chloride Level 104 Carbon Dioxide Level 25 Anion Gap 7 Blood Urea Nitrogen 4 L Creatinine 0.48 Est Glomerular Filtrat Rate mL/min > 60 Glucose Level 86 Calcium Level 8.5 Magnesium Level 1.7 Total Bilirubin 0.1 L Direct Bilirubin 0.00 Indirect Bilirubin 0.1 Aspartate Amino Transf (AST/SGOT) 16 Alanine Aminotransferase (ALT/SGPT) 30 Alkaline Phosphatase 57 Total Protein 5.8 L Albumin 3.1 L Globulin 2.70 Albumin/Globulin Ratio 1.14 Amylase Level 141 H Lipase 508 H Exam/Review of Systems Vital Signs Vitals Vital Signs Date Temp Pulse Resp B/P (MAP) Pulse Ox O2 O2 Flow FiO2 Time Delivery Rate 05/06/18 98.4 86 18 98/54 (69) 96 Room Air 08:00 Intake and Output 05/05/18 05/05/18 05/06/18 1515:00 23:00 07:00 IntakeIntake Total 625 ml 1000 ml 1250 ml BalanceBalance 625 ml 1000 ml 1250 ml Medications Medications Current Medications IV Flush (NS 3 ml) 3 ml PER PROTOCOL IV ; Start 05/01/18 at 05:00 Ondansetron HCl (Zofran Inj) 4 mg Q6H PRN IV NAUSEA AND/OR VOMITING; Start 05/01/18 at 05:00 Acetaminophen (Tylenol Tab) 650 mg Q6H PRN PO PAIN LEVEL 1-3 OR FEVER Last admi nistered on 05/04/18at 05:35; Admin Dose 650 MG; Start 05/01/18 at 05:00 Docusate Sodium (Colace) 100 mg Q12H PRN PO CONSTIPATION; Start 05/01/18 at 05:00 Magnesium Hydroxide (Milk Of Mag) 30 ml DAILY PRN PO CONSTIPATION; Start 05/01/18 at 05:00 Bisacodyl (Dulcolax Supp) 10 mg DAILY PRN [place] CONSTIPATION; Start 05/01/18 at 05:00 Famotidine (Pepcid Iv) 20 mg Q12 IV Last administered on 05/06/18at 08:17; Admin Dose 20 MG; Start 05/01/18 at 09:00 Dextrose/Sodium Chloride 1,000 ml @ 125 mls/hr Q8H IV Last administered on 05/06/18at 04:08; Admin Dose 125 MLS/HR; Start 05/01/18 at 05:00 Morphine Sulfate (morphine SULFATE (PF)) 2 mg Q4H PRN IV SEVERE PAIN LEVEL 7- 10; Start 05/01/18 at 05:00 Diagnostic Test (Pha) (Accu-Chek) 1 ea Q4 XX ; Start 05/06/18 at 13:00 RUDY ROSA May 06, 2018 10:32
--- NOTE | 2018-05-06 11:10 | NUR ---
NUTRITION NOTE RE: TPN Consult received for initiation of TPN. Pt is currently 17 weeks , admitted with acute pancreatitis, elevated amylase and lipase. Pt is currently NPO. Mostly has been NPO, with small amounts of jello and juice Intake over past 5 days. Denies n/v/d. Abd pain controlled. Pt reports her appetite is usually good, she has had recent weight gain since finding out she is . No known food alleriges. LBM 05/03. Amylase and lipase remain elevated, however amylase improving from yesterday. Possibly will need ERCP with OB to follow, potentially will be transferring to a tertiary facility for procedure. For now, MD ordered for TPN to start considering pt has had suboptimal nutritional intake over past 5 days. Per clinical notes, specialist is not recommending for pt to start on oral diet for now. Planning to have PICC line placed today to start TPN. TPN RECOMMENDATIONS: 1. Recommend initial TPN with D8W, AA5% at 75 ml/hr. 2. Recommend to discontinue current supplemental IVF once TPN starts. 3. Recommend to check BMP, Phos, Mg daily and TG weekly.
[2018-05-06] MEDS: ACCU-CHEK XX SCH ×3 (13:00→20:47)
[2018-05-06] MEDS ORDERED: TPN 1,000 ML IV SCH (13:45)
[2018-05-06 14:08] VITALS: BP 106/53; PULSE 65; RESP 18
--- NOTE | 2018-05-06 16:55 | NUR ---
PICC Insertion. This nurse to [address] [place] [address] for peripherally inserted central catheter (PICC) insertion. Patient awake, alert, oriented x 4. Procedure reviewed, patient agreed to proceed. Signed consent on chart for PICC. LUE prepped with chlorhexidene, then maximum barrier drape applied. 5 FR double lumen Arrow Power PICC inserted into brachial vein, 45cm (cut) 0cm exposed, using U/S guidance and sterile technique. CXR performed; tip confirmed in lower 1/3 SVC. Sterile dressing applied. Patient tolerated procedure well. [id number].
[2018-05-06] MEDS: TPN 1,000 ML IV SCH (17:21)
--- NOTE | 2018-05-06 17:21 | NUR ---
RE TPN NOTE PER RX 18 Y/O FEMALE,NO KNOWN ALLERGY ABW:83 KG, IBW:47.8 KG, HT 5'1" LABS:NA 137, K 3.6, CL 105, CO2 25, BG 84, CA 8.6, PHOS 3.2, MAG 1.7 TO START TPN WITH THE FOLLOWING FORMULATION:D8%AA5%@75 MLS/HR (1800 ML/DAY) WITH CUSTOM ELECTROLYTES, NO LIPIDS. ABOVE PROVIDES: CHO 144 GM/DAY (490 KCAL/DAY), PROTEINS 90 GM/DAY (360 KCAL/DAY), TOTAL OF 850 KCAL/DAY PHARMACY WITH VARNISHER TO FOLLOW UP AND ADJUST CLINICALLY INDICATED.
--- NOTE | 2018-05-06 18:26 | NUR ---
Pt received PICC line and started on TPN and tolerating well. Per kamron GAMBLE, pt not yet accepted to tertiary hospital and still working on finding bed but put may be accepted and transferred as early as tonight. Tolerating current treatment regimen. No c/o pain or n/v. Will continue to monitor and endorse to next shift.
[2018-05-06 20:27] VITALS: BP 104/54; PULSE 77; RESP 20
[2018-05-07] MEDS: ACCU-CHEK XX SCH ×6 (01:00→23:35)
[2018-05-07 02:23] VITALS: BP 100/61; PULSE 74; RESP 18
[2018-05-07] MEDS: TPN 1,000 ML IV SCH ×2 (06:20→20:19)
--- NOTE | 2018-05-07 06:28 | PN ---
DATE: 05/06/2018 SUBJECTIVE: The patient denies any complaints. No abdominal pain, no nausea or vomiting. OBJECTIVE: VITAL SIGNS: Stable. She is afebrile. HEENT: Extraocular muscles are intact. Pupils are equal, reactive to light bilaterally. Sclerae ar e anicteric. Oropharynx: Dry mouth. NECK: Supple. No JVD, no carotid bruits. LUNGS: Clear to auscultation bilaterally. CARDIAC: Regular rate and rhythm. No murmurs or gallops. ABDOMEN: Soft, appropriately , nontender, normoactive bowel sounds. EXTREMITIES: No clubbing, cyanosis or edema. NEUROLOGIC: Nonfocal. LABORATORY DATA: Lipase is 508. ASSESSMENT AND PLAN: 1. A 18-year-old female with acute pancreatitis most likely due to gallstone. She is n.p.o. and asy mptomatic; however, lipase is 508. Case was discussed with the pv design engineer, Dr. Jak Porter. He does not believe that the endoscopic ultrasound is of any value at this time. The risks outweigh the benefits. 2. with gestational age of more than 17 weeks. 3. Cholelithiasis. PLAN: 1. Continue n.p.o. 2. Start TPN. 3. Arrange transfer to [facility] for further evaluation. 4. Case was also discussed with pv design engineer, Dr. Murphy. Dictated By: NATASHA MONTEJO/NTS Conf#: [id number] DID#: [id number] CC: MIKEY HAMMOND MD; WHITNEY TELLEZ MD;*EndCC*
--- NOTE | 2018-05-07 06:32 | NUR ---
Patient is alert and oriented x4, denies any pain. On TPN, tolerating well. Able to ambulate to restroom without difficulty. PICC line on ZACH, double lumen with good blood return. Dressing dry and intact. BG checks Q4H as ordered. No s/s of hypo/hyperglycemia noted. Patient would like to have a Hibiclens bath later this morning. Education was provided, patient verbalized understanding. Hourly rounding provided, call light within reach. Will endorse to upcoming nurse accordingly.
[2018-05-07 08:04] VITALS: BP 107/54; PULSE 74; RESP 18
--- NOTE | 2018-05-07 09:10 | NUR ---
NUTRITION NOTE RE: TPN RECOMMENDATIONS Pt started on TPN via PICC line, D8W, AA5%, no lipids at 75 ml/hr. Tolerating well. Remains NPO. Pending arrangement for transfer to tertiary facility, per CM. Labs and meds reviewed; noted [id number] TPN ADJUSTMENT RECS: 1. Rec to adjust TPN to D9W, continue with AA5%, add intralipids 20% 250 ml daily to provide 1800 ml, 162g dextrose, 90g protein, total 1411 kcal per day. 2. Continue to monitor daily BMP, Phos, Mg; TG weekly. 3. Will continue to consult PharmD regarding TPN adjustments as needed to reach goal of meeting caloric needs. Addendum: 05/07/18 at [address] ADDENDUM: Discussed TPN recs with pharmacist. BG's stable. Tolerating current TPN bag well. PharmD considering increasing dextrose to D10W to provide 180g dextrose. D10W, AA5% with 20% 250 ml intralipids daily would provide 1472 kcal per day.
[2018-05-07] MEDS: FAMOTIDINE 20 MG INJ IV SCH ×2 (09:27→20:19)
[2018-05-07 14:00] VITALS: BP 93/52; RESP 18
[2018-05-07] MEDS ORDERED: MAGNESIUM SULFATE 1 GM/D5W 100 ML IVPB ONE (14:30)
--- NOTE | 2018-05-07 14:41 | NUR ---
TPN per Pharmacy (Day #2) Current TPN: D8% AA 5% (90 grams) running at 75 mL/hr - Electrolytes per liter: NaCl 20 mEq, KCl 10 mEq, K Phos 3 mmol, Mag sulfate 4 mEq, Adult MVI 5 mL, Trace Elements 0.3 mL Pertinent labs: Na 135, K 3.8, Mag 1.7 Today's weight = 76.7 kg A/P: Per tankroom tender recommendations, will add Intralipid 20% 250 mL IVPB daily (additional 500 kcal/day) and increase to Dextrose 10% (612 kcal/day) with next TPN bag change to provide a total of 1472 kcal/day. Mag Sulfate 1 gram IVPB x1 bolus ordered per protocol for Mag level 1.7. Will increase NaCl to 60 mEq/L, KCl to 20 mEq/L, and Mag Sulfate to 6 mEq/L with next bag change as well. Pharmacy to follow. Thank you!
--- NOTE | 2018-05-07 15:31 | NUR ---
TRANSFER UPDATE: [facility]ANCE [facility]: PER CM OF NADINE DOMINGUEZ, PATIENT DENIED BY [facility] . NEEDS GI SURGERY CONSULT PER MAVIS DOMINGUEZ. Addendum: 05/07/18 at 1534 by KARYNA SERNA Amended: Links added.
[2018-05-07] MEDS: FAT EMULSION 20% 250 ML IV SCH (16:19)
--- NOTE | 2018-05-07 17:11 | PN ---
Date/Time of Note Date/Time of Note DATE: 05/07/18 TIME: 17:04 Assessment/Plan VTE Prophylaxis Risk score (from Nsg)>0 risk: 2 SCD applied (from Nsg): Yes Pharmacological prophylaxis: other Lines/Catheters IV Catheter Type (from Nrsg): PICC Line Central line still needed: Yes Assessment/Plan Assessment/Plan Acute pancreatitis, gallstone vs idiopathic. -MRCP- No evidence of choledocholithiasis or biliary ductal dilatation Enlarged edematous pancreatic head with moderate atrophy of the pancreatic body and tail. Irregular anct-ka-bldakpcb dilation of main pancreatic duct in the body and tail of the pancreas with abrupt cutoff in the neck. Findings could represent focal pancreatitis superimposed on chronic pancreatitis with possible stricture of the pancreatic duct in the neck or pancreatic head mass. Single live intrauterine gestation of approximately 17 weeks 4 days on 05/01/17 Plan: Continue NPO Check IgG4, rule out autoimmune pancreatitis. PICC line/TPN Transfer to tertiary center ([facility]) for high risk . Subjective/Free text: Lipase higher today 867 (from yesterday). Pancreatic enzymes are slight up today. Pt without significant improvement. William Porter MD felt EUS was NOT indicated despite findings on MRCP. Plan to transfer to tertiary center for further evaluation and management of this High Risk Prenancy. PHYSICAL EXAMINATION: GENERAL: Well developed, well nourished, alert & oriented x 3, in no acute distress SKIN: No lesions EYES: Pupils equal reactive to light, no discharge. EARS/NOSE AND THROAT: Ears normal, nose normal, oropharynx normal NECK: Supple, no masses. CHEST: Inspection within normal limits. CARDIOVASCULAR: Heart: Regular rate and rhythm RESPIRATORY: Lungs clear to auscultation GASTROINTESTINAL AND LIVER: Abdomen: Soft, non tenderness, distended, 17 weeks , no hernias, normoactive bowel sounds. Rectal: Deferred. GENITOURINARY: Not examined EXTREMITIES: No cyanosis, clubbing or edema. MRCP IMPRESSION: 1. Enlarged edematous pancreatic head with moderate atrophy of the pancreatic body and tail. Irregular wpwh-ty-glnuanrj dilation of main pancreatic duct in the body and tail of the pancreas with abrupt cutoff in the neck. Findings could represent focal pancreatitis superimposed on chronic pancreatitis with possible stricture of the pancreatic duct in the neck or pancreatic head mass. Further evaluation is limited due to lack of intravenous contrast. Consider further evaluation with endoscopic ultrasound or contrast enhanced MRI when clinically appropriate. 2. Cholelithiasis without MR evidence of acute cholecystitis. 3. No evidence of choledocholithiasis or biliary ductal dilatation. 4. Duplicated right renal collecting system with mild bilateral hydronephrosis. Result Diagram: 05/06/18 0534 05/07/18 0704 Results 24hrs Laboratory Tests Test 05/06/18 20:46 05/07/18 01:01 05/07/18 05:25 05/07/18 07:04 Bedside Glucose 90 96 89 Sodium Level 135 Potassium Level 3.8 Chloride Level 104 Carbon Dioxide Level 24 Anion Gap 7 Blood Urea Nitrogen 8 Creatinine 0.33 L Est Glomerular > 60 Filtrat Rate mL/min Glucose Level 83 Calcium Level 8.7 Phosphorus Level 3.2 Magnesium Level 1.7 Lipase 867 H Test 05/07/18 09:26 05/07/18 13:46 Bedside Glucose 90 96 Exam/Review of Systems Vital Signs Vitals Vital Signs Date Temp Pulse Resp B/P (MAP) Pulse Ox O2 O2 Flow FiO2 Time Delivery Rate 05/07/18 98.5 18 93/52 (66) 100 14:00 05/07/18 74 08:04 05/07/18 Room Air 02:23 Intake and Output 05/06/18 05/06/18 05/07/18 1515:00 23:00 07:00 IntakeIntake Total 750 ml 500 ml 1000 ml BalanceBalance 750 ml 500 ml 1000 ml Medications Medications Current Medications IV Flush (NS 3 ml) 3 ml PER PROTOCOL IV ; Start 05/01/18 at 05:00 Ondansetron HCl (Zofran Inj) 4 mg Q6H PRN IV NAUSEA AND/OR VOMITING; Start 05/01/18 at 05:00 Acetaminophen (Tylenol Tab) 650 mg Q6H PRN PO PAIN LEVEL 1-3 OR FEVER Last administered on 05/04/18at 05:35; Admin Dose 650 MG; Start 05/01/18 at 05:00 Docusate Sodium (Colace) 100 mg Q12H PRN PO CONSTIPATION; Start 05/01/18 at 05:00 Magnesium Hydroxide (Milk Of Mag) 30 ml DAILY PRN PO CONSTIPATION; Start 05/01/18 at 05:00 Bisacodyl (Dulcolax Supp) 10 mg DAILY PRN OR CONSTIPATION; Start 05/01/18 at 05:00 Famotidine (Pepcid Iv) 20 mg Q12 IV Last administered on 05/07/18at 09:27; Admin Dose 20 MG; Start 05/01/18 at 09:00 Morphine Sulfate (morphine SULFATE (PF)) 2 mg Q4H PRN IV SEVERE PAIN LEVEL 7- 10; Start 05/01/18 at 05:00 Diagnostic Test (Pha) (Accu-Chek) 1 ea Q4 XX ; Start 05/06/18 at 13:00 Total Parenteral Nutrition 1,000 ml @ 75 mls/hr [id number] IV Last administered on 05/07/18at 06:20; Admin Dose 75 MLS/HR; Start 05/06/18 at 18:00 Fat Emulsion Intravenous 250 ml @ 10.417 mls/ hr DAILY@16 IV Last administered on 05/07/18at 16:19; Admin Dose 10.417 MLS/HR; Start 05/07/18 at 16:00 SHAHRZAD CONTRERAS May 07, 2018 17:11
--- NOTE | 2018-05-07 17:29 | NUR ---
heart tone was done by L&D RN, 150 heart beats /min.
--- NOTE | 2018-05-07 19:00 | NUR ---
Patient on bed rest, alert and oriented. Vital signs stable. Denies pain at this time. No nausea or vomiting.Continue with TPN and Lipids Via PICC line. Patient waiting to be transfer to a terciary care.
[2018-05-07 19:55] VITALS: BP 108/57; PULSE 89; RESP 20
--- NOTE | 2018-05-08 00:18 | NUR ---
Patient went to MRI via wheelchair accompanied by ASSET PROTECTION MANAGER Addendum: 05/08/18 at 0103 by MADDISON LINN RN Patient back from MRI
[2018-05-08 01:41] VITALS: BP 110/56; PULSE 78; RESP 18
[2018-05-08] MEDS: ACCU-CHEK XX SCH ×3 (05:17→20:21)
--- NOTE | 2018-05-08 06:16 | NUR ---
Patient in bed, denies any pain. On TPN and lipids, tolerating well. No n/v noted. PICC line dressing dry and intact. BG checks Q6H, BG WNL. Hourly rounding provided. Call light within reach. No acute changes noted during shift.
[2018-05-08 08:27] VITALS: BP 96/52; PULSE 97; RESP 18
[2018-05-08] MEDS: FAMOTIDINE 20 MG INJ IV SCH ×2 (08:34→20:21)
--- NOTE | 2018-05-08 08:34 | PN ---
DATE: 05/07/2018 SUBJECTIVE: The patient is doing well. No complaint of abdominal pain. No nausea or vomiting. PHYSICAL EXAMINATION VITAL SIGNS: Stable. She is afebrile. LUNGS: Clear to auscultation. CARDIAC: Regular rate and rhythm. No murmurs or gallops. ABDOMEN: Soft, nontender, nondistended. Normoactive bowel sounds. EXTREMITIES: No clubbing, cyanosis or edema. NEUROLOGICAL: Nonfocal. LABORATORY DATA: Lipase is elevated to 867. ASSESSMENT: 1. A 18-year-old female with acute gallstone pancreatitis. 2. with gestational age of 18 weeks. 3. Cholelithiasis. PLAN: 1. Continue n.p.o. 2. Continue TPN. 3. Await transfer to surgery facility for further treatment. 4. Case was discussed with gastroenterology. Dictated By: NATASHA PINTO MD SK/NTS Conf#: [id number] DID#: [id number] CC: MIKEY HAMMOND MD; WHITNEY TELLEZ MD;*EndCC*
[2018-05-08] MEDS: TPN 1,000 ML IV SCH ×2 (09:34→11:12)
--- NOTE | 2018-05-08 13:22 | PN ---
DATE: 05/08/2018 SUBJECTIVE: Patient denies any abdominal pain. No nausea or vomiting. Feels hungry. OBJECTIVE: VITAL SIGNS: Stable. Afebrile. NECK: Supple. CHEST: Lungs clear to auscultation bilaterally. HEART: Regular rate and rhythm. No murmurs or gallops. ABDOMEN: Soft, appropriately gravid, nontender, normoactive bowel sounds. EXTREMITIES: No clubbing, cyanosis, or edema. NEUROLOGIC: Nonfocal. Lipase is 1007. Repeat MRCP shows interval development of large cystic lesio n occupying the left upper quadrant adjacent to the pancreatic tail, likely has pseudocyst in the cli nical context of pancreatitis. Also edematous enlargement of pancreatic head with atrophy of the schultz creatic body and tail with mild ductal dilatation was noted. No biliary dilatation. No choledocholi thiasis. No biliary obstruction. ASSESSMENT: 1. A 18-year-old female with acute pancreatitis and rising lipase despite the fact that she is n.p.o . 2. 18 weeks' gestation. 3. Cholelithiasis with no evidence of choledocholithiasis or acute cholecystitis. 4. Pancreatic pseudocyst. PLAN: 1. Continue TPN, n.p.o. 2. The case was discussed in length with paramedical aide, Dr. Murphy. 3. The patient is awaiting transfer to a tertiary medical center for further treatment. Dictated By: NATASHA MONTEJO/ROSSI Conf#: [id number] DID#: [id number] CC: MIKEY HAMMOND MD;*End*
--- NOTE | 2018-05-08 15:19 | PN ---
Date/Time of Note Date/Time of Note DATE: 05/08/18 TIME: 15:07 Assessment/Plan VTE Prophylaxis Risk score (from Nsg)>0 risk: 4 SCD applied (from Ns): Yes Pharmacological prophylaxis: NA/contraindicated Pharm contraindication: other () Lines/Catheters IV Catheter Type (from Nrs): PICC Line Central line still needed: Yes Assessment/Plan Assessment/Plan Assessment/Plan Acute pancreatitis, gallstone vs idiopathic. New-onset pancreatic pseudocyst -MRCP- 05/01/18 No evidence of choledocholithiasis or biliary ductal dilatation Enlarged edematous pancreatic head with moderate atrophy of the pancreatic body and tail. Irregular wuui-mi-eguagjyp dilation of main pancreatic duct in the body and tail of the pancreas with abrupt cutoff in the neck. Findings could represent focal pancreatitis superimposed on chronic pancreatitis with possible stricture of the pancreatic duct in the neck or pancreatic head mass. MRCP: 05/08/18 1. Enlarged edematous pancreatic head with moderate atrophy of the pancreatic body and tail. Irregular bsos-vc-nnfyhtly dilation of main pancreatic duct in the body and tail of the pancreas with abrupt cutoff in the neck. Findings could represent focal pancreatitis superimposed on chronic pancreatitis with possible stricture of the pancreatic duct in the neck or pancreatic head mass. Further evaluation is limited due to lack of intravenous contrast. Consider further evaluation with endoscopic ultrasound or contrast enhanced MRI when clinically appropriate. 2. Cholelithiasis without MR evidence of acute cholecystitis. 3. No evidence of choledocholithiasis or biliary ductal dilatation. 4. Duplicated right renal collecting system with mild bilateral hydronephrosis. Single live intrauterine gestation of approximately 17 weeks 4 days on 05/01/17 Plan: Begin clear liquid diet since clinically the patient has shown significant improvement. Lipase fluctuations or not reliable indicators of disease activity given the presence of pseudocyst Check IgG4, rule out autoimmune pancreatitis. PICC line/TPN Until able to tolerate diet Transfer to tertiary center ([facility]) for high risk Only if recommended by OB service Subjective/Free text: Patient reports no abdominal pain, feeling well Lipase fluctuations unreliable given the presence of pseudocyst Plan to transfer to tertiary center for further evaluation and management of High Risk . Only if recommended by OB service PHYSICAL EXAMINATION: GENERAL: Well developed, well nourished, alert & oriented x 3, in no acute distress SKIN: No lesions EYES: Pupils equal reactive to light, no discharge. EARS/NOSE AND THROAT: Ears normal, nose normal, oropharynx normal NECK: Supple, no masses. CHEST: Inspection within normal limits. CARDIOVASCULAR: Heart: Regular rate and rhythm RESPIRATORY: Lungs clear to auscultation GASTROINTESTINAL AND LIVER: Abdomen: Soft, no tenderness, distended, 17 weeks , no hernias, normoactive bowel sounds. Rectal: Deferred. GENITOURINARY: Not examined EXTREMITIES: No cyanosis, clubbing or edema. Result Diagram: 05/06/18 0534 05/08/18 0559 Results 24hrs Laboratory Tests Test 05/07/18 17:44 05/07/18 23:44 05/08/18 05:58 05/08/18 05:59 Bedside Glucose 89 99 Lipase 1007 H Sodium Level 139 Potassium Level 3.9 Chloride Level 104 Carbon Dioxide Level 23 Anion Gap 12 Blood Urea Nitrogen 11 Creatinine 0.34 L Est Glomerular > 60 Filtrat Rate mL/min Glucose Level 76 Calcium Level 8.9 Phosphorus Level 3.6 Magnesium Level 1.9 Test 05/08/18 06:04 05/08/18 11:55 Bedside Glucose 70 91 Exam/Review of Systems Vital Signs Vitals Vital Signs Date Temp Pulse Resp B/P (MAP) Pulse Ox O2 O2 Flow FiO2 Time Delivery Rate 05/08/18 98.0 97 18 96/52 (67) 98 08:27 05/07/18 Room Air 02:23 Intake and Output 05/07/18 05/07/18 05/08/18 1515:00 23:00 07:00 IntakeIntake Total 1160.4 ml 800.004 ml BalanceBalance 1160.4 ml 800.004 ml Medications Medications Current Medications IV Flush (NS 3 ml) 3 ml PER PROTOCOL IV ; Start 05/01/18 at 05:00 Ondansetron HCl (Zofran Inj) 4 mg Q6H PRN IV NAUSEA AND/OR VOMITING; Start 05/01/18 at 05:00 Acetaminophen (Tylenol Tab) 650 mg Q6H PRN PO PAIN LEVEL 1-3 OR FEVER Last administered on 05/04/18at 05:35; Admin Dose 650 MG; Start 05/01/18 at 05:00 Docusate Sodium (Colace) 100 mg Q12H PRN PO CONSTIPATION; Start 05/01/18 at 05:00 Magnesium Hydroxide (Milk Of Mag) 30 ml DAILY PRN PO CONSTIPATION; Start 05/01/18 at 05:00 Bisacodyl (Dulcolax Supp) 10 mg DAILY PRN [place] CONSTIPATION; Start 05/01/18 at 05:00 Famotidine (Pepcid Iv) 20 mg Q12 IV Last administered on 05/08/18at 08:34; Admin Dose 20 MG; Start 05/01/18 at 09:00 Morphine Sulfate (morphine SULFATE (PF)) 2 mg Q4H PRN IV SEVERE PAIN LEVEL 7- 10; Start 05/01/18 at 05:00 Total Parenteral Nutrition 1,000 ml @ 75 mls/hr [id number] IV Last administered on 05/08/18at 11:12; Admin Dose 75 MLS/HR; Start 05/06/18 at 18:00 Fat Emulsion Intravenous 250 ml @ 10.417 mls/ hr DAILY@16 IV Last administered on 05/07/18at 16:19; Admin Dose 10.417 MLS/HR; Start 05/07/18 at 16:00 Diagnostic Test (Pha) (Accu-Chek) 1 ea Q6 XX Last administered on 05/08/18at 11:56; Admin Dose 1 EA; Start 05/08/18 at 00:00 JANAK VU MD May 08, 2018 15:17
[2018-05-08 15:22] VITALS: BP 106/53; PULSE 85; RESP 18
[2018-05-08] MEDS: FAT EMULSION 20% 250 ML IV SCH (15:44)
--- NOTE | 2018-05-08 16:29 | NUR ---
SEEN BY DR. Yahir ESPARZA CONSULT: NO NEED TO TRANSFER TO [facility]. Addendum: 05/08/18 at 1629 by KARYNA SERNA CM Amended: Links added.
--- NOTE | 2018-05-08 17:39 | NUR ---
NURSE NOTES: patient alert and oriented x 4, able to make need known. No changes in LOC or mentation. No SOB or distress. Assessed for pain, denies any pain or discomforts. PICC line dressing changes. No bleeding on the site. Patient tolerated well the procedure. No changes in skin upon assessment. On TPN and lipids. On clear liquid diet as ordered by DR. Mahmood. No nausea/ vomiting noted. Received order from Dr. Joya to change the ACCU check to every 12 hours. Called Maternity and followed up with the heart tone monitor as ordered. Per maternity a nurse will come to the unit and will check the heart tone and they are aware of the said order. patient and mother at the bedside notified and agreed. All needs were attended and anticipated. call light and telephone within reach at all times. safety precautions observed, hourly rounding done. Will continue to monitor. Will endorse accordingly to next shift for continuity of care.
--- NOTE | 2018-05-08 19:18 | NUR ---
L&D RN at bedside to assess heart tones (FHT). FHT audible at 145-155bpm via doppler x1-2mins.
[2018-05-08 19:50] VITALS: BP 96/54; PULSE 77; RESP 17
[2018-05-09] MEDS: TPN 1,000 ML IV SCH ×2 (01:11→14:39)
[2018-05-09 01:44] VITALS: BP 93/54; PULSE 60; RESP 17
[2018-05-09 07:43] VITALS: BP 95/50; PULSE 89; RESP 16
[2018-05-09] MEDS: ACCU-CHEK XX SCH ×2 (08:21→20:52)
[2018-05-09] MEDS: FAMOTIDINE 20 MG INJ IV SCH ×2 (08:21→20:44)
--- NOTE | 2018-05-09 11:46 | PN ---
DATE: 05/09/2018 SUBJECTIVE: The patient is tolerating clear liquids. She denies any abdominal pain. No nausea or v omiting. Vital signs stable. OBJECTIVE: VITAL SIGNS: Afebrile. LUNGS: Clear to auscultation bilaterally. HEART: Regular rate and rhythm. ABDOMEN: Soft, nontender, normoactive bowel sounds. EXTREMITIES: No clubbing, cyanosis, or edema. ASSESSMENT AND PLAN: 1. Acute pancreatitis, clinically resolved. 2. Pancreatic pseudocyst. 3. 18 week gestation. PLAN: 1. Advance diet to full liquid. 2. Monitor lipase. 3. Gastrointestinal followup is appreciated. Dictated By: NATASHA PINTO MD SK/NTS Conf#: [id number] DID#: [id number] CC: MIKEY HAMMOND MD;*EndCC*
[2018-05-09] MEDS ORDERED: MAGNESIUM SULFATE 1 GM/D5W 100 ML IVPB SCH (12:00)
--- NOTE | 2018-05-09 12:10 | NUR ---
Nutrition Notes: Visited pt's room, pt alert/oriented, states no c/o n/v. On TPN w/lipids, PO on cl liquid diet 50, 75%. Diet advanced to mechanical soft. Spoke w/pharmacist and discussed lowering TPN to 50 ml/hr for tomorrow. If pt's PO remains good, would recommend to d/c TPN w/lipids w/in [address] covering tomorrow. RD Recommendations 1. Lower TPN rate to 50 ml/hr 2. D/c TPN w/in 48 hrs if PO remains good
[2018-05-09] MEDS ORDERED: POTASSIUM CHLORIDE 50 ML IVPB SCH (13:00)
--- NOTE | 2018-05-09 13:52 | PN ---
Date/Time of Note Date/Time of Note DATE: 05/09/18 TIME: 13:49 Assessment/Plan VTE Prophylaxis Risk score (from Nsg)>0 risk: 6 SCD applied (from Nsg): Yes Pharmacological prophylaxis: other (scds) Lines/Catheters IV Catheter Type (from Nrsg): PICC Line (tpn) Central line still needed: Yes (tpn) Assessment/Plan Hospital Course Assessment/Plan Acute pancreatitis, gallstone vs idiopathic. New-onset pancreatic pseudocyst -MRCP- 05/01/18 No evidence of choledocholithiasis or biliary ductal dilatation Enlarged edematous pancreatic head with moderate atrophy of the pancreatic body and tail. Irregular ettf-ni-uxauqedl dilation of main pancreatic duct in the body and tail of the pancreas with abrupt cutoff in the neck. Findings could represent focal pancreatitis superimposed on chronic pancreatitis with possible stricture of the pancreatic duct in the neck or pancreatic head mass. MRCP: 05/08/18 1. Enlarged edematous pancreatic head with moderate atrophy of the pancreatic body and tail. Irregular uilu-yl-dzfsxifi dilation of main pancreatic duct in the body and tail of the pancreas with abrupt cutoff in the neck. Findings could represent focal pancreatitis superimposed on chronic pancreatitis with possible stricture of the pancreatic duct in the neck or pancreatic head mass. Further evaluation is limited due to lack of intravenous contrast. Consider further evaluation with endoscopic ultrasound or contrast enhanced MRI when clinically appropriate. 2. Cholelithiasis without MR evidence of acute cholecystitis. 3. No evidence of choledocholithiasis or biliary ductal dilatation. 4. 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 Single live intrauterine gestation of approximately 17 weeks 4 days on 05/01/17 Plan: Patient has been started on a soft diet once able to tolerate diet times 24 hours without any abdominal pain patient will be cleared from GI point of view for outpatient management Obtain baseline ultrasound as patient will need to be followed weekly with ultrasound to assess pancreatic pseudocyst Lipase fluctuations or not reliable indicators of disease activity given the presence of pseudocyst Check IgG4, rule out autoimmune pancreatitis- pending PICC line/TPN Until able to tolerate diet- pt advanced to soft diet. Transfer to tertiary center ([facility]) for high risk Only if recommended by OB service Patient seen in collaboration with Dr. Murphy Subjective/Free text: No over night events, pt advanced to soft diet, no c/o abd pain or nausea/vomiting Lipase fluctuations unreliable given the presence of pseudocyst Plan to transfer to tertiary center for further evaluation and management of High Risk . Only if recommended by OB service PHYSICAL EXAMINATION: GENERAL: Well developed, well nourished, alert & oriented x 3, in no acute distress SKIN: No lesions EYES: Pupils equal reactive to light, no discharge. EARS/NOSE AND THROAT: Ears normal, nose normal, oropharynx normal NECK: Supple, no masses. CHEST: Inspection within normal limits. CARDIOVASCULAR: Heart: Regular rate and rhythm RESPIRATORY: Lungs clear to auscultation GASTROINTESTINAL AND LIVER: Abdomen: Soft, no tenderness, distended, 17 weeks , no hernias, normoactive bowel sounds. Rectal: Deferred. GENITOURINARY: Not examined EXTREMITIES: No cyanosis, clubbing or edema. Result Diagram: 05/06/18 0534 05/09/18 0453 Results 24hrs Laboratory Tests Test 05/08/18 20:20 05/09/18 04:53 05/09/18 08:20 Bedside Glucose 99 102 Sodium Level 138 Potassium Level 3.8 Chloride Level 105 Carbon Dioxide Level 23 Anion Gap 10 Blood Urea Nitrogen 10 Creatinine 0.31 L Est Glomerular Filtrat Rate mL/min > 60 Glucose Level 91 Calcium Level 8.9 Phosphorus Level 3.2 Magnesium Level 1.9 Exam/Review of Systems Exam Vitals Vital Signs Date Temp Pulse Resp B/P (MAP) Pulse Ox O2 O2 Flow FiO2 Time Delivery Rate 05/09/18 98.3 89 16 95/50 (65) 99 Room Air 07:43 Intake and Output 05/08/18 05/08/18 05/09/18 1515:00 23:00 07:00 IntakeIntake Total 325 ml 594.596 ml 1000 ml BalanceBalance 325 ml 594.596 ml 1000 ml Results Results 24hrs Laboratory Tests Test 05/08/18 20:20 05/09/18 04:53 05/09/18 08:20 Bedside Glucose 99 102 Sodium Level 138 Potassium Level 3.8 Chloride Level 105 Carbon Dioxide Level 23 Anion Gap 10 Blood Urea Nitrogen 10 Creatinine 0.31 L Est Glomerular Filtrat Rate mL/min > 60 Glucose Level 91 Calcium Level 8.9 Phosphorus Level 3.2 Magnesium Level 1.9 RUDY ROSA May 09, 2018 13:52
[2018-05-09 14:50] VITALS: BP 102/53; PULSE 78; RESP 16
--- NOTE | 2018-05-09 15:23 | QN ---
Documentation Comment Denies any symptoms. Denies any complaint. Tolerated clear liguid diet. Denies any fever or chills. Denies any vaginal bleeding, LOF or contractions. Denies any urinary symptoms, PE: GA, A&O, NAD Abdomen: Soft, Non tender,No rebound tenderness, no rigidity,Gravid size consistent with date Extremities: No calf tenderness, no click no edema Assessment: IUP at 17 + weeks Admitted for pancreatitis Doing better Management of pancreatitis per primary team No Ob problem at this time call L&D for daily FHT Consult if any questions TIFFANY HOGAN MD May 09, 2018 15:23
[2018-05-09] MEDS: FAT EMULSION 20% 250 ML IV SCH (16:05)
--- NOTE | 2018-05-09 16:28 | NUR ---
RE TPN NOTE PER RX DAY#4 Current TPN: D10% AA 5% @ 75 mL/hr Per quality control tech recommendation to decrease TPN rate to 50 ml/hr (1200 ml/day), TPN provides: CHO 120gm/day (408 kcal/day),proteins 60 gm/day (240kcal/day), lipids 20% 250 ml daily (500 kcal/day), total of 1148 kcal/day. Labs:NA 138, K 3.8, CL 105, CO2 23, BG 91, CA 8.9, PHOS 3.2, MAG 1.9 Bolus Mag sulfate 1 gm IV and KCL 10 meq IV per RX TPN protocol Increased KCL in TPN to 30 meq/L and Mag to 8 meq/L Pharmacy to follow. Thank you
--- NOTE | 2018-05-09 17:32 | NUR ---
No acute changes during shift. Pt safe and free from injury. Friends at bedside throughout shift. Pt A&ox4 and able to make needs known. Pt ambulatory with steady gait. Tolerating diet well. Pt denies any pain. No signs of discomfort or distress. No SOB. Pt currently comfortable in bed. Bed alarm on, call light within reach. Will continue to monitor.
--- NOTE | 2018-05-09 19:46 | NUR ---
Patient alert and verbal..plan of care discussed for monitoring at the bedside per doppler. FHT 135-145 BPM FROM 193 TO 194 PM WITH ACCELERATIONS HEARD TO 159.PATIENT STATES NO PAIN OR CRAMPIANG AT THIS TIME. SELF CARE AND DIET DISCUSSED WITH PATIENT, WELL PO HYDRATION.PATIENT MILENA ENCOURAGED TO CALL NURSING PERSONNEL FOR ANY CONCERN OR NEED.
[2018-05-09 20:00] VITALS: BP 116/81; PULSE 80; RESP 18
[2018-05-10 02:00] VITALS: BP 97/50; PULSE 72; RESP 18
[2018-05-10] MEDS: TPN 1,000 ML IV SCH (02:00)
[2018-05-10] MEDS ORDERED: TPN 1,000 ML IV SCH (03:00)
[2018-05-10 08:00] VITALS: BP_SYST 103; BP_SYST 107; BP_DIAS 55; BP_DIAS 71; PULSE 71; PULSE 82; RESP 18
[2018-05-10] MEDS: FAMOTIDINE 20 MG INJ IV SCH (08:31)
[2018-05-10] MEDS: ACCU-CHEK XX SCH (08:34)
--- NOTE | 2018-05-10 09:39 | PDOCDIS ---
Discharge Instructions CONDITION [id number] Patient Condition: [id number] Good HOME CARE INSTRUCTIONS: [id number] Diet Instructions: [id number] Regular Ebsse1Fh Special Diet: Ubfwi1o advance diet slowly ACTIVITY: [id number] Activity Restrictions: [id number] No Restrictions FOLLOW UP/APPOINTMENTS Follow-up Plan pcp [address] Murphy 1 week NATASHA PINTO MD May 10, 2018 09:39
--- NOTE | 2018-05-10 11:35 | NUR ---
Discharge coordination; Followed up with Benjamin after informed by care team about discharge arrangements; spoke with Angie and requested for home order as well as clinical reports. Unfortunately no specific orders given at this time and she will reach out to following MD. However able to collate report including TPN information as well as PICC line placement reports. They will reach out to either Patient or care team once arrangements made.
[2018-05-10 14:00] VITALS: BP 100/59; PULSE 63; RESP 17
--- NOTE | 2018-05-10 14:44 | DS ---
DATE OF ADMISSION: 05/01/2018 DATE OF DISCHARGE: DISCHARGE DIAGNOSES: 1. Acute gallstone pancreatitis, resolved. 2. Pancreatic pseudocyst. 3. An 18-week gestation. PROCEDURES DURING HOSPITALIZATION: MRCP x2, gallbladder ultrasound and obstetric ultrasound. HOSPITAL COURSE: A 18-year-old very pleasant female with estimated gestational age of 18 weeks, pres ented to emergency room with complaint of abdominal pain. She was diagnosed with acute pancreatitis. This was thought to be due to gallstones. Initial MRCP showed enlarged edematous pancreatic head w ith moderate atrophy of the pancreatic body and tail. Irregular mild to moderate dilatation of the m ain pancreatic duct in the body and tail of the pancreas were noted. Cholelithiasis without MR evide nce of acute cholecystitis was also noted. There was no evidence of choledocholithiasis or biliary d uctal dilatation. The patient was seen in consultation by gastroenterology group. Her pain resolved . She was started on clear liquids, but she had recurrent pain with significant elevation in lipase. Oral feeding was stopped again and patient was started on TPN. Initially, there was discussion of transferring the patient was to a tertiary care center. However, she remained asymptomatic during the remainder of the hospitalization. Clear liquid was started and diet was slowly advanced. This was well tolerated with no evidence of abdominal pain. A repeat MRCP showed interval development of large cystic lesion occupying the left upper quadrant adjacent to the pancreatic tail. This was likely pseudocysts in a clinical context of pancreatitis. The patient wi ll eventually need a cholecystectomy. She prefers to undergo this procedure following her delivery. The patient was advised that she is at risk of recurrent pancreatitis. She understands risks and be nefits. At this point, she is in stable condition for discharge. The patient was asked to advance h er diet slowly and follow up with PCP and GI as outpatient. Dictated By: NATASHA PINTO MD SK/NTS Conf#: [id number] DID#: [id number] CC: SHAHRZAD CONTRERAS MD; MIKEY HAMMOND MD; WHITNEY TELLEZ MD;*EndCC*
--- NOTE | 2018-05-10 17:05 | NUR ---
Pt discharge teaching done. Instructed pt to follow up in one week with PCP and Dr. Murphy. Pt verbalized understanding. All belongings accounted for. PICC line DC'd. Mother and friend at bedside. Pt off unit by wheelchair. No signs of discomfort or distress. No SOB.
== END 2018-05-10 17:19 | disposition home health service (06) | DRG 831 ==
LOC: FTE 19:37 → PP2 05-01 01:35 → OBSVTOIN 05-01 02:09
PROVIDERS: ADMIT Internal Medicine; ATTEND Internal Medicine
PROC: 02HV33Z Insertion of Infusion Device into Superior Vena Cava, Percutaneous Approach (ICD-10-PCS; principal; 2018-05-06)
DX: O99.612 Diseases of the digestive system complicating pregnancy, second trimester (principal); K85.10 Biliary acute pancreatitis without necrosis or infection; K86.3 Pseudocyst of pancreas; Z3A.17 17 weeks gestation of pregnancy
CPT/HCPCS: 36569; 71045; 74181; 76705; 76805; 76937; 80048; 80053; 80061; 81003; 82150; 82784; 82787; 82962; 83690; 83735; 84100; 84134; 84478; 85025; 85610; 85730; G0378; C1769; J3475; J3480; J7030; J7042

== ENCOUNTER 2018-06-17 13:36 | Outpatient (CLI) | payer OTHER ==
[~2018-06-17] VITALS: Ht 162.6 cm; Wt 85.1 kg
[2018-06-17 14:12] VITALS: Ht 162.6 cm; Wt 85.1 kg
[2018-06-17 14:13] VITALS: BP 97/51; PULSE 63; RESP 20
[2018-06-17] MEDS ORDERED: LACTATED RINGER'S 1,000 ML IV SCH (16:00)
--- NOTE | 2018-06-17 20:08 | PN ---
Triage Information Date/Time Jun 17, 2018 Reason for visit: Follow up pancreatitis and large pancreatic cyst Weeks of Gestation 24w 1d /Para 1/0 Diabetes: none Hypertention: none Additional information Pt has been followed for pancreatitis and has had pancreatic enzymes levels in the thousands in the recent past. She has a pancreatic cyst that was 8-9 cm in the past. Today she is pain free and is here just for follow-up of the cyst. PMHx: none other than the above. PSHx: none. NKDA Objective Vital Signs Date Temp Pulse Resp B/P (MAP) Pulse Ox O2 O2 Flow FiO2 Time Delivery Rate 06/17/18 98.1 63 20 97/51 (66) 98 Room Air 14:13 Heart Rate: 140's Contractions: None Results/Medications Result Diagram: 06/17/18 1611 Results 24 hrs Laboratory Tests Test 06/17/18 16:11 White Blood Count 8.5 Red Blood Count 3.19 L Hemoglobin 10.4 L Hematocrit 31.0 L Mean Corpuscular Volume 97.2 Mean Corpuscular Hemoglobin 32.6 Mean Corpuscular Hemoglobin Concent 33.5 Red Cell Distribution Width 12.7 Platelet Count 170 Mean Platelet Volume 10.4 Immature Granulocytes % 0.600 H Neutrophils % 78.2 H Lymphocytes % 16.1 L Monocytes % 4.5 Eosinophils % 0.5 Basophils % 0.1 Nucleated Red Blood Cells % 0.0 Immature Granulocytes # 0.050 H Neutrophils # 6.6 Lymphocytes # 1.4 Monocytes # 0.4 Eosinophils # 0.0 Basophils # 0.0 Nucleated Red Blood Cells # 0.0 Total Bilirubin 0.0 L Direct Bilirubin 0.00 Indirect Bilirubin 0.0 Aspartate Amino Transf (AST/SGOT) 20 Alanine Aminotransferase (ALT/SGPT) 19 Alkaline Phosphatase 77 Total Protein 6.1 Albumin 3.4 Amylase Level 202 H Lipase 801 H Imaging Results EFW 689 grams. Posterior placents. MVP of amniotic fluid 5.7 cm. Cervical length 4.3 cm and closed. BREECH. Disposition: Discharge Assessment/Plan A: IUP at 24w 1d. H/o pancreatitis. Pt is currently pain free and her amylase and lipase are mildly elevated compared to prior levels. H/o pancreatic cyst.This has enlarged to 12 x 10 cm. P: Will d/c from OB Triage and send to the ER for clearance in regards to the issues with her pancreas, per the request of her MD DR Peralta. ROSY SCHMID MD Jun 17, 2018 20:08
== END 2018-06-17 20:03 | disposition home or self-care (01) ==
LOC: OBT 13:36 → L-D 13:38 → OBT 20:03
PROVIDERS: ATTEND Obstetrics & Gynecology
DX: O26.892 Other specified pregnancy related conditions, second trimester (principal); Z3A.24 24 weeks gestation of pregnancy; K86.2 Cyst of pancreas
CPT/HCPCS: 76705; 76815; 76817; 80076; 82150; 83690; 85025; J7120; Z7500; 76818; G0463

== ENCOUNTER 2018-07-02 14:46 | Inpatient (IN) | payer OTHER ==
[~2018-07-02] VITALS: Ht 162.6 cm; Wt 85.8 kg
[2018-07-02 15:19] VITALS: Ht 162.6 cm; Wt 85.8 kg
[2018-07-02 15:20] VITALS: BP 104/55
[2018-07-02] MEDS ORDERED: PREN1TAB71 PO (15:22)
--- NOTE | 2018-07-02 18:21 | TRIAGE ---
OB Triage Datetime Report Generated by CPN: 07/02/2018 18:21 Datetime: 07/02/2018 17:58 Stage of : OB Triage Labor Evaluation Frequency: 0 Monitor Mode: External Pattern: Normal: <= 5 Contractions in 10 Minutes Resting Tone Crestline: Relaxed Heart Rate FHR Baseline Rate: 135 Monitor Mode: External US Variability: Moderate 6-25 bpm Accelerations: 15X15 Decelerations: None Category: Category I Datetime: 07/02/2018 16:59 Stage of : OB Triage Labor Evaluation Frequency: 0 Monitor Mode: External Pattern: Normal: <= 5 Contractions in 10 Minutes Resting Tone Crestline: Relaxed Heart Rate FHR Baseline Rate: 135 Monitor Mode: External US Variability: Moderate 6-25 bpm Accelerations: 15X15 Decelerations: None Category: Category I Pain Presence: None/Denies Pain Type: N/A Datetime: 07/02/2018 16:16 Stage of : OB Triage Labor Evaluation Frequency: 0 Monitor Mode: External Pattern: Normal: <= 5 Contractions in 10 Minutes Resting Tone Crestline: Relaxed Heart Rate FHR Baseline Rate: 145 Monitor Mode: External US Variability: Moderate 6-25 bpm Accelerations: 15X15 Decelerations: None Category: Category I Datetime: 07/02/2018 15:16 Stage of : OB Triage Assessment Type: Triage Maternal Assessment Level of Consciousness: Fully Conscious DTR's/Clonus: DTRs 2+; No Clonus Headache: Denies Blurred Vision: No Respiratory Effort: Unlabored; Regular Rhythm; Equal Expansion Breath Sounds, Left: Clear and Equal Breath Sounds, Right: Clear and Equal Nausea/Vomiting: Denies RUQ Epigastric Pain: Denies Lower Extremities Edema: None Degree: None Upper Extremities Edema: None Degree: None Facial Edema: None Temperature Route: Oral Fall Risk Assessment History of Falling: (0) No Secondary Diagnosis: (0) No Ambulatory Aid: (0) Bedrest/Nurse Assist IV Therapy: (0) No Gait: (0) Normal/Bedrest/Immobile Mental Status: (0) Oriented to Own Ability Fall Score: 0 Fall Risk Score Definition: No Risk: No action required Monitor Mode: External (Annotations: INIITIAL PLACEMENT ) Monitor Mode: External US (Annotations: INITIAL PLACEMENT ) Pain Presence: Intermittent Pain Type: Pressure; Ache Pain Location: Abdomen Datetime: 07/02/2018 15:14 Time of Arrival: 07/02/2018 14:36 EGA: 26.2 Arrived By: Ambulatory Arrived From: Home Chief Complaint: UPPER ABD PAIN Movement: Present Contractions: Denies/Absent Rupture of Membranes: Denies Vaginal Bleeding: None Vaginal Discharge: Denies Recent Sexual Intercouse: Denies Abdominal Trauma: Not Applicable Patient Complaints: Other Additional Patient Complaints: HX OF GALL STOENS AND PANCREATIS Time Provider Notified: 07/02/2018 15:30 Provider Notified: DR. ROLDAN Initial Plan: EFM, CALLL MD Datetime: 06/17/2018 19:40 Stage of : Antepartum Maternal Assessment Level of Consciousness: Fully Conscious DTR's/Clonus: DTRs 2+; No Clonus Headache: Denies Blurred Vision: No Respiratory Effort: Unlabored; Regular Rhythm; Equal Expansion Breath Sounds, Left: Clear and Equal Breath Sounds, Right: Clear and Equal Nausea/Vomiting: Denies RUQ Epigastric Pain: Denies Lower Extremities Edema: None Degree: None Upper Extremities Edema: None Degree: None Facial Edema: None Temperature Route: Oral Fall Risk Assessment History of Falling: (0) No Secondary Diagnosis: (0) No Ambulatory Aid: (0) Bedrest/Nurse Assist IV Therapy: (0) No Gait: (0) Normal/Bedrest/Immobile Mental Status: (0) Oriented to Own Ability Fall Score: 0 Fall Risk Score Definition: No Risk: No action required Pain Assessment Pain Scale: 0 Pain Presence: None/Denies Pain Type: N/A Pain Goal: 3 Datetime: 06/17/2018 19:39 Heart Rate FHR Baseline Rate: 145 Monitor Mode: External US Variability: Moderate 6-25 bpm Accelerations: 10X10 Decelerations: None Datetime: 06/17/2018 19:33 Comments: US APPLIED; RN AT BEDSIDE OBTAINING HEART TONES Datetime: 06/17/2018 19:07 Vaginal Exam Membrane Status: Intact Datetime: 06/17/2018 15:53 Comments: fht's 140-150 with moderate variability, no decels, cat 1 tracing, no ctx's per toco. Datetime: 06/17/2018 15:16 Stage of : OB Triage Datetime: 06/17/2018 15:15 Labor Evaluation Frequency: 0 Monitor Mode: External Duration (sec)2399: 0 Resting Tone Crestline: Relaxed Heart Rate FHR Baseline Rate: 140 Monitor Mode: External US Variability: Moderate 6-25 bpm Accelerations: 10X10 Decelerations: None Category: Category I Datetime: 06/17/2018 14:42 Stage of : OB Triage Datetime: 06/17/2018 14:36 Stage of : OB Triage Datetime: 06/17/2018 13:50 EGA: 24.1 Datetime: 06/17/2018 13:48 Stage of : OB Triage Maternal Assessment Level of Consciousness: Fully Conscious DTR's/Clonus: DTRs 2+; No Clonus Headache: Denies Breath Sounds, Left: Clear and Equal Breath Sounds, Right: Clear and Equal Nausea/Vomiting: Denies RUQ Epigastric Pain: Denies Pain Assessment Pain Scale: 2 Pain Presence: Constant Pain Type: Sharp; Stabbing Pain Location: Other (Annotations: left mid abd) Pain Goal: 0 Datetime: 06/17/2018 13:42 Time of Arrival: 06/17/2018 13:42 Arrived By: Wheelchair Arrived From: Home Chief Complaint: FOLLOW UP FROM PANCREATITIS WITH L ABD PAIN Movement: Present Contractions: Denies/Absent Rupture of Membranes: Denies Vaginal Bleeding: None Vaginal Discharge: Denies Recent Sexual Intercouse: Denies Abdominal Trauma: Not Applicable Patient Complaints: Other Initial Plan: NST
[2018-07-02] MEDS: DEXTROSE 5%-LR 1,000 ML IV SCH (18:28)
[2018-07-03] MEDS: DEXTROSE 5%-LR 1,000 ML IV SCH ×3 (02:19→18:55)
--- NOTE | 2018-07-03 17:08 | HP ---
Date/Time of Note Date/Time of Note DATE: 07/03/18 TIME: 17:06 OB - History Hx of Present Chief Complaint: RUQ pain : 1 Para: 0 Spontaneous : 0 Care: Good Care Ultrasounds: Normal mid trimester US Obstetrical Complications: None Medical Complications: Other (Pancreatitis) Past Family/Social History * Past Medical, Surgical, Family and Obstetric Histories reviewed from chart. OB Admission Exam Vital Signs Vital Signs Vital Signs Date Temp Pulse Resp B/P (MAP) Pulse Ox O2 O2 Flow FiO2 Time Delivery Rate 07/02/18 98.6 104/55 Room Air 15:20 (71) Physical Exam HEENT: WNL Heart: Rhythm Normal Lungs: Clear, Equal Abdomen: WNL Extremities: Normal Reflexes: Normal Heart Rate: 140's Accelerations: Accelerations Present Decelerations: No Decelerations Contractions on Admission: None Last 72 hours Lab Results CBC & BMP 07/02/18 16:25 07/03/18 08:31 Liver Function Test 07/02/18 16:25 07/03/18 08:31 Alanine Aminotransferase (ALT/SGPT) 37 46 Albumin 3.5 3.1 L Alkaline Phosphatase 138 H 132 H Aspartate Amino Transf (AST/SGOT) 30 34 Direct Bilirubin 0.00 0.00 Total Protein 6.6 5.9 L OB Assessment/Plan Reason for admission: other Other Assessment: Pancreatitis 26 weeks Plan: Other Other plan: Admit NPO IV hydration repeat labs MIMA ROLDAN MD Jul 03, 2018 17:08
[2018-07-04] MEDS: DEXTROSE 5%-LR 1,000 ML IV SCH ×3 (02:37→20:34)
--- NOTE | 2018-07-04 17:30 | CONS ---
Assessment/Plan Assessment/Plan Problems: (1) Pancreatitis, gallstone Status: Chronic (2) Pancreatitis, chronic Status: Chronic Qualifiers: Qualified Codes: K86.1 - Other chronic pancreatitis Assessment/Plan (Daily) Patient presents with a clinical picture of a chronic biliary pancreatitis. There is no acute events right now. In spite of elevated pancreatic enzymes patient does not have any symptoms. This enzymes can be results of the chronic obstruction versus pancreatic pesudocyst. There are no gallbladder stones currently. Only sludge in the gallbladder. MRCP is pending. My impression that patient does not need any surgical intervention currently given there is no evidence of acute cholecystitis or acute pancreatitis, and the patient is and considered to be high risk. We will reviewed the MRCP and make the final decision. Consultation Date/Type/Reason Admit Date/Time Jul 02, 2018 at 17:50 Date of Consultation: Jul 03, 2018 Type of Consult Surgical Reason for Consultation Gallstone pancreatitis Date/Time of Note DATE: 07/04/18 TIME: 17:16 Hx of Present Illness Patient is 18-year-old she is a 24-year-old . She has a history of abdominal pain few months ago that prompted some evaluation. The MRCP performed in April showed there is swelling of the pancreas as well as gallbladder stones and pancreatic pseudocyst. 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 Patient did report abdominal pain attacks back in April but recently she does not have any pain. She tolerates regular diet except fatty foods. No otherwise complaints. She came this time to know what is the follow-up and the prognosis of her pancreatic cyst. She was sent to emergency room and admitted. The MRCP is pending. Ultrasound showed that there are no gallstones no biliary tree dilatation and there is a small amount and sludge in the gallbladder. Constitutional: no complaints, improved Eyes: no complaints ENT: no complaints Respiratory: no complaints Cardiovascular: no complaints Gastrointestinal: no complaints Genitourinary: no complaints Musculoskeletal: no complaints Skin: no complaints Neurologic: no complaints Endocrine: no complaints Lymphatic: no complaints Psychological: no complaints, nl mood/affect Immunologic: no complaints Past Medical History Medical History: no pertinent history Home Meds Reported Medications Vit No.130/Iron/FA ( Tablet) 1 Each Tablet, 1 EACH PO 07/02/18 Medications Current Medications Dextrose/Lactated Ringer's 1,000 ml @ 125 mls/hr Q8H IV Last administered on 07/04/18at 10:48; Admin Dose 125 MLS/HR; Start 07/04/18 at 02:00 Allergies: Coded Allergies: No Known Allergy (Unverified , 04/03/18) Past Surgical History Past Surgical Hx: no surgical history Family History Significant Family History: no pertinent family hx Social History Smoking Status: Never smoker Exam/Review of Systems Exam Vitals Vital Signs Date Temp Pulse Resp B/P (MAP) Pulse Ox O2 O2 Flow FiO2 Time Delivery Rate 07/02/18 98.6 104/55 Room Air 15:20 (71) Intake and Output 07/03/18 07/03/18 07/04/18 1515:00 23:00 07:00 IntakeIntake Total 1600 ml 1075 ml OutputOutput Total 500 ml 2100 ml BalanceBalance 1100 ml -1025 ml Constitutional: alert, oriented, well developed Psych: no complaints, nl mood/affect Head: normocephalic, atraumatic Eyes: nl conjunctiva, EOMI, nl lids, nl sclera, PERRL ENMT: nl external ears & nose, nl lips & teeth, nl nasal mucosa & septum Neck: supple, non-tender Respiratory: clear to auscultation, normal air movement Cardiovascular: regular rate and rhythm, nl pulses Gastrointestinal: soft, nl liver, spleen, non-tender Musculoskeletal: nl extremities to inspection, nl gait and stance Extremities: normal pulses Neurological: SPEED OPERATOR II-XII intact, nl mental status, nl speech, nl strength Skin: nl turgor; No rash or lesions Lymph: nl lymph nodes Results Result Diagram: 07/04/18 0528 07/04/18 0529 Results 24hrs Laboratory Tests Test 07/04/18 05:28 07/04/18 05:29 White Blood Count 7.6 Red Blood Count 2.99 L Hemoglobin 9.8 L Hematocrit 29.3 L Mean Corpuscular Volume 98.0 Mean Corpuscular Hemoglobin 32.8 Mean Corpuscular Hemoglobin Concent 33.4 Red Cell Distribution Width 11.9 Platelet Count 214 Mean Platelet Volume 9.9 Immature Granulocytes % 1.200 H Neutrophils % 67.6 Lymphocytes % 22.4 Monocytes % 7.3 Eosinophils % 1.2 Basophils % 0.3 Nucleated Red Blood Cells % 0.0 Immature Granulocytes # 0.090 H Neutrophils # 5.1 Lymphocytes # 1.7 Monocytes # 0.6 Eosinophils # 0.1 Basophils # 0.0 Nucleated Red Blood Cells # 0.0 Sodium Level 139 Potassium Level 3.8 Chloride Level 105 Carbon Dioxide Level 25 Anion Gap 9 Blood Urea Nitrogen 3 L Creatinine 0.47 Est Glomerular Filtrat Rate mL/min > 60 Glucose Level 89 Calcium Level 8.7 Total Bilirubin 0.3 Direct Bilirubin 0.00 Indirect Bilirubin 0.3 Aspartate Amino Transf (AST/SGOT) 31 Alanine Aminotransferase (ALT/SGPT) 45 Alkaline Phosphatase 127 H Total Protein 6.0 L Albumin 3.1 L Globulin 2.90 Albumin/Globulin Ratio 1.06 Amylase Level 459 H Lipase 2297 H Medications Medication Current Medications Dextrose/Lactated Ringer's 1,000 ml @ 125 mls/hr Q8H IV Last administered on 07/04/18at 10:48; Admin Dose 125 MLS/HR; Start 07/04/18 at 02:00 BARB HIGGINBOTHAM MD Jul 04, 2018 17:26
--- NOTE | 2018-07-04 19:16 | QN ---
Documentation Comment No complaint Afebrile VSS Strip Reactive Amylase and lipase elevated Surgery consult MIMA ROLDAN MD Jul 04, 2018 19:16
[2018-07-05] MEDS: DEXTROSE 5%-LR 1,000 ML IV SCH ×2 (04:07→10:56)
--- NOTE | 2018-07-05 13:48 | DS ---
Date/Time of Note Date/Time of Note DATE: 07/05/18 TIME: 13:47 Obstetrical Discharge Record Final Diagnosis Final Diagnosis: not delivered Other Final Diagnosis Pancreatitis Cholelithiasis Condition on Discharge Physical Assessment Voiding: Yes Bowel Movement: Yes Calf Tenderness: No Patient Condition: Stable MIMA ROLDAN MD Jul 05, 2018 13:48
== END 2018-07-05 15:32 | disposition home or self-care (01) | DRG 831 ==
LOC: OBT 14:46 → L-D 14:47 → OBT 17:50 → PP1 20:29
PROVIDERS: ADMIT Obstetrics & Gynecology; ATTEND Obstetrics & Gynecology
DX: O99.612 Diseases of the digestive system complicating pregnancy, second trimester (principal); K85.10 Biliary acute pancreatitis without necrosis or infection; K86.3 Pseudocyst of pancreas; K86.1 Other chronic pancreatitis; K80.20 Calculus of gallbladder without cholecystitis without obstruction; Z3A.26 26 weeks gestation of pregnancy
CPT/HCPCS: 74181; 76705; 76817; 80053; 81001; 82150; 83690; 85025; G0463; J7121

== ENCOUNTER 2018-07-18 01:05 | Inpatient (IN) | payer SELFPAY ==
[~2018-07-18] VITALS: Ht 162.6 cm; Wt 84.1 kg
[~2018-07-18 01:05] MED LIST changes: -ACET325T33 PO; -ACET500C5 PO; -AMOX1TAB10 PO; -CEPH-443 PO; -CIPR500T4 PO; -IBUP-1542 PO; -METO10TA92 PO; -ONDA4TAB14 PO; -ONDA4TAB8 PO; +PREN1TAB71 PO; -SULF1TAB31 PO
[2018-07-18 01:14] VITALS: Ht 162.6 cm; Wt 84.1 kg
[2018-07-18] MEDS ORDERED: ONDANSETRON 4 MG INJ IV ONE (03:29)
[2018-07-18] MEDS ORDERED: FAMOTIDINE 20 MG INJ IV ONE (03:30)
[2018-07-18] MEDS ORDERED: LACTATED RINGER'S 1,000 ML IV ONE (03:30)
[2018-07-18] MEDS ORDERED: AL HYDROX/MG HYDROX/SIMETH 30 ML CUP PO ONE (05:00)
[2018-07-18] MEDS ORDERED: ACETAMINOPHEN 1000MG/100ML IV 100 ML IVPB ONE (05:00)
--- NOTE | 2018-07-18 05:46 | HP ---
Date/Time of Note Date/Time of Note DATE: 07/18/18 TIME: 05:43 OB - History Hx of Present Free Text/Dictation July 17, 2018 : 2 Para: 1 Care: Good Care Abnormal Ultrasound Findings: Unchanged 3 mm polyp or sludge ball in the gallbladder. No evidence of acute cholecystitis. No significant change in the complex cystic structure or pseudocyst in the left abdome Other Concerns: 18-year-old with IUP at 28 weeks [address] care with [address]. Henry from [facility] presented with complaint of pain in the RT flank increases when the patient take deep breath and nausea course complicated by history of gall stone in current pseudocyst of pancreas s/p medical management. She denies any leaking of fluid, vaginal bleeding, decreased movement, fever, chills. Past Family/Social History * Past Medical, Surgical, Family and Obstetric Histories reviewed from chart. OB Admission Exam Physical Exam HEENT: WNL Lungs: Clear Extremities: Normal Cervical Dilatation: None Effacement: 0% Station: -3 Membranes: Intact Heart Rate: 120's Accelerations: Accelerations Present Decelerations: No Decelerations Intensity: Mild Last 72 hourBlood Glucose PROCEDURE: US Abdomen. CLINICAL INDICATION: ABDOMINAL PAIN TECHNIQUE: Multiple real-time images were acquired of the patient's abdomen and retroperitoneum utilizing a high resolution transducer. COMPARISON: MR 07/04/2018; US ABDOMEN 07/02/2018; US ABDOMEN 06/17/2018; US ABDOMEN 05/10/2018 FINDINGS: The liver demonstrates normal echogenicity. The liver is normal in size and no focal solid lesions are seen. The portal vein is patent with normal direction of flow. No intrahepatic biliary dilatation is seen. The liver measures 16 cm in length. No gallstones are identified within the gallbladder. 3 mm nonshadowing echogenic polypoid lesion is again seen. There is no pericholecystic fluid or gallbladder wall thickening. The common bile duct measures 4.6 mm in maximal dimension. The pancreas is obscured by bowel gas. The previously noted cystic structure with internal debris and septation in the left abdomen, medial to the spleen and anterior to the left kidney is again seen measuring approximate 11.6 x 7.6 x 10.8 cm. The spleen is normal in size. No free fluid is identified. The kidneys are normal in size, and demonstrate normal echogenicity and cortical thickness. The right kidney measures 12.6 cm. The left kidney measures 12.7 cm. There is no evidence of hydronephrosis. There are no kidney stones. IMPRESSION: Unchanged 3 mm polyp or sludge ball in the gallbladder. No evidence of acute cholecystitis. No significant change in the complex cystic structure or pseudocyst in the left abdomen. [facility] PROCEDURE: OB ultrasound for biophysical profile CLINICAL INDICATION: Abdominal pain TECHNIQUE: Multiple sonographic images of the pelvis were obtained. Transabdominal view of the gravid uterus are available for review. The images were reviewed on a PACS workstation. COMPARISON: US 07/02/2018 FINDINGS: breathing movement = 2/2 tone = 2/2 motion = 2/2 ADRIANNA = 2/2 ADRIANNA = 13.5 cm. The largest fluid pocket measures 5 cm. Single live intrauterine with cardiac activity. The heartbeat measures 148 beats per minute. The fetus is in the breech presentation. The placenta is posterior, grade 1 without evidence of previa. The cervical length measures 3.5 cm. IMPRESSION: 1. Single viable intrauterine gestation. 2. Biophysical profile = 8/8. 3. ADRIANNA = 13.5 cm. [facility] Last 72 hours Lab Results CBC & BMP 07/18/18 02:43 Liver Function Test 07/18/18 02:43 Alanine Aminotransferase (ALT/SGPT) 397 H Albumin 3.6 Alkaline Phosphatase 238 H Aspartate Amino Transf (AST/SGOT) 161 H Direct Bilirubin 0.00 Total Protein 7.2 OB Assessment/Plan Other Assessment: IUP at 28 weeks Right flank pain, upper abdominal pain, CVA tenderness, cannot rule out pyelonephritis Nausea, vomiting History of gallstone, Patient admitted for observation and evaluation, rule out pyelonephritis Labs, CBC, CMP, urine analysis, requested Ultrasound of the abdomen, including right upper quadrant and renal ultrasound requested Follow-up with the results Currently no tenderness and Coombs sign noted. However there is a tenderness in the right flank, questionable for pyelonephritis Patient will be started on IV antibiotics Follow-up with ultrasound and lab Plan of care discussed with the patient and nursing Continuous monitoring Antiemetic for nausea, IV hydration TIFFANY HOGAN MD Jul 18, 2018 05:46
[2018-07-18] MEDS ORDERED: CEFAZOLIN 2 GM/50 ML (PMX) 50 ML IVPB SCH (06:30)
[2018-07-18] MEDS ORDERED: FAMOTIDINE 20 MG INJ IV PRN (07:30)
--- NOTE | 2018-07-18 08:03 | TRIAGE ---
OB Triage Datetime Report Generated by CPN: 07/18/2018 08:03 Datetime: 07/18/2018 07:41 Assessment Type: Ongoing Assessment Maternal Assessment Level of Consciousness: Fully Conscious DTR's/Clonus: DTRs 2+; No Clonus Headache: Denies Blurred Vision: No Respiratory Effort: Unlabored; Regular Rhythm; Equal Expansion Breath Sounds, Left: Clear and Equal Breath Sounds, Right: Clear and Equal Nausea/Vomiting: Denies RUQ Epigastric Pain: Denies Lower Extremities Edema: None Degree: None Upper Extremities Edema: None Degree: None Facial Edema: None Fall Risk Assessment History of Falling: (0) No Secondary Diagnosis: (0) No Ambulatory Aid: (0) Bedrest/Nurse Assist IV Therapy: (20) Yes Gait: (0) Normal/Bedrest/Immobile Mental Status: (0) Oriented to Own Ability Fall Score: 20 Fall Risk Score Definition: No Risk: No action required Datetime: 07/18/2018 06:50 Labor Evaluation Frequency: X0 Monitor Mode: External Duration (sec)2399: X0 Pattern: Normal: <= 5 Contractions in 10 Minutes Resting Tone [place]: Relaxed Heart Rate FHR Baseline Rate: 145 Monitor Mode: External US Variability: Moderate 6-25 bpm Accelerations: 15X15 Decelerations: None Category: Category I Datetime: 07/18/2018 05:41 Stage of : OB Triage Labor Evaluation Frequency: X0 Monitor Mode: External Duration (sec)2399: X0 Pattern: Normal: <= 5 Contractions in 10 Minutes Resting Tone [place]: Relaxed Datetime: 07/18/2018 04:46 Labor Evaluation Frequency: X0 Monitor Mode: External Duration (sec)2399: X0 Pattern: Normal: <= 5 Contractions in 10 Minutes Resting Tone [place]: Relaxed Heart Rate FHR Baseline Rate: 145 Monitor Mode: External US Variability: Moderate 6-25 bpm Accelerations: 15X15 Decelerations: None Category: Category I Datetime: 07/18/2018 04:25 Comments: LOSS CONTACT. PT VOMITING Datetime: 07/18/2018 03:30 Labor Evaluation Frequency: NONE Monitor Mode: External Pattern: Normal: <= 5 Contractions in 10 Minutes Resting Tone [place]: Relaxed Heart Rate FHR Baseline Rate: 155 Monitor Mode: External US FHR Baseline Changes: No Baseline Change Variability: Moderate 6-25 bpm Accelerations: 15X15 Decelerations: None Category: Category I Datetime: 07/18/2018 02:31 Labor Evaluation Frequency: NONE Monitor Mode: External Pattern: Normal: <= 5 Contractions in 10 Minutes Heart Rate FHR Baseline Rate: 155 Monitor Mode: External US Datetime: 07/18/2018 01:22 Labor Evaluation Frequency: NONE Monitor Mode: External Pattern: Normal: <= 5 Contractions in 10 Minutes Resting Tone [place]: Relaxed Heart Rate FHR Baseline Rate: 155 Monitor Mode: External US Comments: ON EFM Datetime: 07/18/2018 01:15 Stage of : OB Triage Time of Arrival: 07/18/2018 01:05 EGA: 28.4 Arrived By: Wheelchair Arrived From: Home Chief Complaint: LOWER BACK PAIN RIGHT FLANK PAIN Movement: Present Contractions: Denies/Absent Rupture of Membranes: Denies Vaginal Bleeding: None Vaginal Discharge: Denies Recent Sexual Intercouse: Denies Abdominal Trauma: Not Applicable Patient Complaints: Back Pain; Other Additional Patient Complaints: PT DX WITH GALLSTONES AND PANCREATIC CYST Time Provider Notified: 07/18/2018 01:20 Provider Notified: DR. HOGAN Initial Plan: EFM, CALL OB Maternal Assessment Level of Consciousness: Fully Conscious DTR's/Clonus: DTRs 2+; No Clonus Headache: Denies Blurred Vision: No Respiratory Effort: Unlabored; Regular Rhythm; Equal Expansion Breath Sounds, Left: Clear and Equal Breath Sounds, Right: Clear and Equal Nausea/Vomiting: Denies RUQ Epigastric Pain: Denies Lower Extremities Edema: None Degree: None Upper Extremities Edema: None Degree: None Facial Edema: None Fall Risk Assessment History of Falling: (0) No Secondary Diagnosis: (0) No Ambulatory Aid: (0) Bedrest/Nurse Assist IV Therapy: (0) No Gait: (0) Normal/Bedrest/Immobile Mental Status: (0) Oriented to Own Ability Fall Score: 0 Fall Risk Score Definition: No Risk: No action required Pain Assessment Pain Scale: 8 Pain Presence: Constant Pain Type: Dull; Pressure Pain Location: Abdomen; Back Pain Goal: 0 Pain Relief Measures: Comfort Measures Datetime: 07/05/2018 14:03 Stage of : Antepartum Maternal Assessment Level of Consciousness: Fully Conscious Headache: Denies Nausea/Vomiting: Denies RUQ Epigastric Pain: Denies Resting Tone [place]: Relaxed Pain Assessment Pain Scale: 0 Pain Presence: None/Denies Vaginal Bleeding: None Datetime: 07/05/2018 13:07 Stage of : Antepartum Datetime: 07/05/2018 13:06 Maternal Assessment Level of Consciousness: Fully Conscious Headache: Denies Blurred Vision: No Respiratory Effort: Unlabored Nausea/Vomiting: Denies RUQ Epigastric Pain: Denies Resting Tone [place]: Relaxed Pain Presence: None/Denies Datetime: 07/05/2018 13:00 Stage of : Antepartum Maternal Assessment Level of Consciousness: Fully Conscious Headache: Denies Nausea/Vomiting: Denies RUQ Epigastric Pain: Denies Resting Tone [place]: Relaxed Pain Assessment Pain Scale: 0 Pain Presence: None/Denies Vaginal Bleeding: None Datetime: 07/05/2018 11:26 Heart Rate FHR Baseline Rate: 145 Variability: Moderate 6-25 bpm Comments: fht's approp. for ega of 26.5 Datetime: 07/05/2018 10:55 Respiratory Effort: Unlabored Nausea/Vomiting: Denies RUQ Epigastric Pain: Denies Resting Tone [place]: Relaxed Pain Presence: None/Denies Datetime: 07/05/2018 10:38 Maternal Assessment Level of Consciousness: Fully Conscious Headache: Denies Blurred Vision: No Respiratory Effort: Unlabored Nausea/Vomiting: Denies RUQ Epigastric Pain: Denies Monitor Mode: External Resting Tone [place]: Relaxed Monitor Mode: External US Comments: nst q shift ega 26.5 Pain Presence: None/Denies Datetime: 07/05/2018 09:17 Stage of : Antepartum Maternal Assessment Level of Consciousness: Fully Conscious Headache: Denies Nausea/Vomiting: Denies RUQ Epigastric Pain: Denies Resting Tone [place]: Relaxed Pain Assessment Pain Scale: 0 Pain Presence: None/Denies Vaginal Bleeding: None Datetime: 07/05/2018 08:40 Stage of : Antepartum Maternal Assessment Level of Consciousness: Fully Conscious Headache: Denies Blurred Vision: No Respiratory Effort: Unlabored Breath Sounds, Left: Clear and Equal Breath Sounds, Right: Clear and Equal Nausea/Vomiting: Denies RUQ Epigastric Pain: Denies Temperature Route: Oral Resting Tone [place]: Relaxed Contraction Comments: pt. denies uc's or cramping Comments: pt. acknowledges movements. ega 26.5 today Pain Presence: None/Denies Pain Assessment Comments: pt. states she is feeling"better" and denies any distress at this time Vaginal Exam Membrane Status: Intact Vaginal Bleeding: None Datetime: 07/05/2018 07:12 Respiratory Effort: Unlabored Pain Presence: None/Denies Datetime: 07/05/2018 06:00 Stage of : Antepartum Datetime: 07/05/2018 04:09 Stage of : Antepartum Temperature Route: Oral Contraction Comments: PT DENIES CRAMPING Comments: PT STATES + FM Pain Presence: None/Denies Pain Type: N/A Vaginal Exam Membrane Status: Intact Vaginal Bleeding: None Datetime: 07/05/2018 04:07 Stage of : Antepartum Datetime: 07/05/2018 01:45 Stage of : Antepartum Pain Presence: None/Denies Pain Assessment Comments: PT SLEEPING WITH EVEN UNLABORED BREATHING. Datetime: 07/04/2018 23:26 Stage of : Antepartum Temperature Route: Oral Monitor Mode: External Contraction Comments: PT DENIES CRAMPING Monitor Mode: External US Comments: PT STATES + FM Pain Presence: None/Denies Pain Type: N/A Vaginal Exam Membrane Status: Intact Vaginal Bleeding: None Datetime: 07/04/2018 21:47 Labor Evaluation Frequency: NONE Monitor Mode: External Resting Tone [place]: Relaxed Heart Rate FHR Baseline Rate: 140 Monitor Mode: External US Variability: Moderate 6-25 bpm Accelerations: 15X15 Decelerations: None Category: Category I Pain Presence: None/Denies Pain Type: N/A Datetime: 07/04/2018 20:36 Monitor Mode: External Contraction Comments: APPLIED FOR FM Monitor Mode: External US Comments: APPLIED FOR FM Pain Presence: None/Denies Pain Type: N/A Datetime: 07/04/2018 20:34 Stage of : Antepartum Datetime: 07/04/2018 19:20 Stage of : Antepartum Assessment Type: Ongoing Assessment Maternal Assessment Level of Consciousness: Fully Conscious DTR's/Clonus: DTRs 2+; No Clonus Headache: Denies Blurred Vision: No Respiratory Effort: Unlabored; Regular Rhythm; Equal Expansion Breath Sounds, Left: Clear and Equal Breath Sounds, Right: Clear and Equal Nausea/Vomiting: Denies RUQ Epigastric Pain: Denies Lower Extremities Edema: None Degree: None Upper Extremities Edema: None Degree: None Facial Edema: None Temperature Route: Oral Fall Risk Assessment History of Falling: (0) No Secondary Diagnosis: (0) No Ambulatory Aid: (0) Bedrest/Nurse Assist IV Therapy: (0) No Gait: (0) Normal/Bedrest/Immobile Mental Status: (0) Oriented to Own Ability Fall Score: 0 Fall Risk Score Definition: No Risk: No action required Contraction Comments: PT DENIES CRAMPING Comments: PT STATES + FM Pain Presence: None/Denies Pain Type: N/A Vaginal Exam Membrane Status: Intact Vaginal Bleeding: None Datetime: 07/04/2018 16:00 Stage of : Antepartum Labor Evaluation Frequency: 0 Monitor Mode: External Pattern: Normal: <= 5 Contractions in 10 Minutes Resting Tone [place]: Relaxed Heart Rate FHR Baseline Rate: 140 Monitor Mode: External US FHR Baseline Changes: No Baseline Change Variability: Moderate 6-25 bpm Accelerations: 10X10 Decelerations: Variable (Annotations: EGA AT 26.4) Category: Category I Datetime: 07/04/2018 11:18 Labor Evaluation Frequency: 0 Monitor Mode: External Pattern: Normal: <= 5 Contractions in 10 Minutes Resting Tone [place]: Relaxed Heart Rate FHR Baseline Rate: 140 Monitor Mode: External US FHR Baseline Changes: No Baseline Change Variability: Moderate 6-25 bpm Accelerations: 10X10 Decelerations: None Category: Category I Datetime: 07/04/2018 11:17 Stage of : Antepartum Temperature Route: Oral Pain Assessment Pain Scale: 0 Pain Presence: None/Denies Pain Goal: 0 Datetime: 07/04/2018 11:15 Labor Evaluation Frequency: 0 Monitor Mode: External Resting Tone [place]: Relaxed Heart Rate FHR Baseline Rate: 135 Monitor Mode: External US FHR Baseline Changes: No Baseline Change Variability: Moderate 6-25 bpm Accelerations: 15X15 Decelerations: None Category: Category I Datetime: 07/04/2018 11:13 Stage of : Antepartum Datetime: 07/04/2018 11:04 Labor Evaluation Frequency: 0 Monitor Mode: External Pattern: Normal: <= 5 Contractions in 10 Minutes Resting Tone [place]: Relaxed Heart Rate FHR Baseline Rate: 135 Monitor Mode: External US FHR Baseline Changes: No Baseline Change Variability: Moderate 6-25 bpm Accelerations: 10X10 Decelerations: None Category: Category I Datetime: 07/04/2018 10:38 Labor Evaluation Frequency: 0 Monitor Mode: External Resting Tone [place]: Relaxed Heart Rate FHR Baseline Rate: 140 Monitor Mode: External US FHR Baseline Changes: No Baseline Change Variability: Moderate 6-25 bpm Accelerations: 15X15 Decelerations: None Category: Category I Datetime: 07/04/2018 10:15 Stage of : Antepartum Assessment Type: Ongoing Assessment Maternal Assessment Level of Consciousness: Fully Conscious DTR's/Clonus: DTRs 2+; No Clonus Headache: Denies Blurred Vision: No Respiratory Effort: Unlabored; Regular Rhythm; Equal Expansion Breath Sounds, Left: Clear and Equal Breath Sounds, Right: Clear and Equal Nausea/Vomiting: Denies RUQ Epigastric Pain: Denies Lower Extremities Edema: None Degree: None Upper Extremities Edema: None Degree: None Facial Edema: None Temperature Route: Oral Fall Risk Assessment History of Falling: (0) No Secondary Diagnosis: (0) No Ambulatory Aid: (0) Bedrest/Nurse Assist IV Therapy: (0) No Gait: (0) Normal/Bedrest/Immobile Mental Status: (0) Oriented to Own Ability Fall Score: 0 Fall Risk Score Definition: No Risk: No action required Pain Assessment Pain Scale: 0 Pain Presence: None/Denies Pain Goal: 0 Datetime: 07/04/2018 07:00 Stage of : Antepartum Pain Presence: None/Denies Pain Type: N/A Datetime: 07/04/2018 05:40 Stage of : Antepartum Temperature Route: Oral Contraction Comments: PT DENIES CRAMPING Monitor Mode: External US Comments: PT STATES + FM Pain Presence: None/Denies Pain Type: N/A Vaginal Exam Membrane Status: Intact Vaginal Bleeding: None Datetime: 07/04/2018 03:27 Stage of : Antepartum Pain Presence: None/Denies Pain Type: N/A Pain Assessment Comments: PT SLEEPING WITH EVEN UNLABORED BREATHING Datetime: 07/04/2018 02:37 Stage of : Antepartum Pain Presence: None/Denies Pain Type: N/A Pain Assessment Comments: PT SLEEPING BUT EASILY AROUSED. Datetime: 07/04/2018 00:45 Stage of : Antepartum Pain Presence: None/Denies Pain Type: N/A Pain Assessment Comments: PT SLEEPING BUT EASILY AROUSED Datetime: 07/03/2018 22:56 Stage of : Antepartum Temperature Route: Oral Contraction Comments: PT DENIES CRAMPING Comments: PT STATES +FM Pain Presence: None/Denies Pain Type: N/A Pain Assessment Comments: PT STATES SHE HAS NO ABDOMINAL PAIN AT THIS TIME. Datetime: 07/03/2018 22:55 Labor Evaluation Frequency: NONE Monitor Mode: External Resting Tone [place]: Relaxed Heart Rate FHR Baseline Rate: 140 Monitor Mode: External US Variability: Moderate 6-25 bpm Accelerations: 10X10 Decelerations: None Category: Category I Comments: AGA Pain Presence: None/Denies Pain Type: N/A Datetime: 07/03/2018 22:09 Monitor Mode: External US Datetime: 07/03/2018 21:29 Labor Evaluation Frequency: NONE Monitor Mode: External Resting Tone [place]: Relaxed Heart Rate FHR Baseline Rate: 130 Monitor Mode: External US Variability: Moderate 6-25 bpm Accelerations: 15X15 Decelerations: None Category: Category I Datetime: 07/03/2018 21:05 Monitor Mode: External Contraction Comments: APPLIED FOR FHR MONITORING Monitor Mode: External US Comments: APPLIED FOR FHR MONITORING Datetime: 07/03/2018 20:07 Stage of : Antepartum Assessment Type: Admission Assessment Maternal Assessment Level of Consciousness: Fully Conscious DTR's/Clonus: DTRs 2+; No Clonus Headache: Denies Blurred Vision: No Respiratory Effort: Unlabored; Regular Rhythm; Equal Expansion Breath Sounds, Left: Clear and Equal Breath Sounds, Right: Clear and Equal Nausea/Vomiting: Denies RUQ Epigastric Pain: Denies Lower Extremities Edema: None Degree: None Upper Extremities Edema: None Degree: None Facial Edema: None Temperature Route: Oral Fall Risk Assessment History of Falling: (0) No Secondary Diagnosis: (0) No Ambulatory Aid: (0) Bedrest/Nurse Assist IV Therapy: (0) No Gait: (0) Normal/Bedrest/Immobile Mental Status: (0) Oriented to Own Ability Fall Score: 0 Fall Risk Score Definition: No Risk: No action required Monitor Mode: External Contraction Comments: PT DENIES CRAMPING Comments: PT STATES + FM Pain Presence: None/Denies Pain Type: N/A Vaginal Exam Membrane Status: Intact Vaginal Bleeding: None Datetime: 07/03/2018 09:47 Stage of : Antepartum Datetime: 07/03/2018 09:30 Labor Evaluation Frequency: 0 Monitor Mode: External Pattern: Normal: <= 5 Contractions in 10 Minutes Resting Tone [place]: Relaxed Heart Rate FHR Baseline Rate: 140 Monitor Mode: External US FHR Baseline Changes: No Baseline Change Variability: Moderate 6-25 bpm Accelerations: 10X10 Decelerations: None Category: Category I Datetime: 07/03/2018 07:30 Assessment Type: Ongoing Assessment Maternal Assessment Level of Consciousness: Fully Conscious DTR's/Clonus: DTRs 2+; No Clonus Headache: Denies Blurred Vision: No Respiratory Effort: Unlabored; Regular Rhythm; Equal Expansion Breath Sounds, Left: Clear and Equal Breath Sounds, Right: Clear and Equal Nausea/Vomiting: Denies RUQ Epigastric Pain: Denies Lower Extremities Edema: None Degree: None Upper Extremities Edema: None Degree: None Facial Edema: None Fall Risk Assessment History of Falling: (0) No Secondary Diagnosis: (0) No Ambulatory Aid: (0) Bedrest/Nurse Assist IV Therapy: (20) Yes Gait: (0) Normal/Bedrest/Immobile Mental Status: (0) Oriented to Own Ability Fall Score: 20 Fall Risk Score Definition: No Risk: No action required Datetime: 07/03/2018 05:31 Stage of : Antepartum Temperature Route: Oral Pain Assessment Pain Scale: 0 Pain Presence: None/Denies Pain Type: N/A Pain Assessment Comments: Patient appears comfortable and is sleeping in between care. Datetime: 07/03/2018 04:03 Stage of : Antepartum Pain Assessment Comments: Patient appears comfortable and is sleeping. Datetime: 07/03/2018 02:20 Stage of : Antepartum Pain Assessment Pain Scale: 0 Pain Presence: None/Denies Pain Type: N/A Pain Assessment Comments: Patient sleeping in between care. Patient denies feeling pain at this hakan e. Datetime: 07/03/2018 01:16 Stage of : Antepartum Datetime: 07/03/2018 01:15 Stage of : Antepartum Temperature Route: Oral Pain Assessment Pain Scale: 0 Pain Presence: None/Denies Pain Type: N/A Datetime: 07/03/2018 00:35 Pain Assessment Pain Scale: 0 Pain Presence: None/Denies Pain Type: N/A Datetime: 07/02/2018 23:29 Labor Evaluation Frequency: none Monitor Mode: External Heart Rate FHR Baseline Rate: 140 Monitor Mode: External US Variability: Moderate 6-25 bpm Accelerations: 10X10 Comments: Appropriate for gestational age Datetime: 07/02/2018 23:00 Labor Evaluation Frequency: none Heart Rate FHR Baseline Rate: 140 Monitor Mode: External US Variability: Moderate 6-25 bpm Accelerations: 15X15 Comments: Frequent loss of contact Datetime: 07/02/2018 22:49 Resting Tone [place]: Relaxed Datetime: 07/02/2018 22:00 Labor Evaluation Frequency: none Monitor Mode: External Heart Rate FHR Baseline Rate: 145 Monitor Mode: External US Variability: Moderate 6-25 bpm Accelerations: 15X15 Comments: Frequent loss of contact Datetime: 07/02/2018 21:44 Stage of : Antepartum Temperature Route: Oral Pain Assessment Pain Scale: 0 Pain Presence: None/Denies Pain Type: N/A Datetime: 07/02/2018 21:00 Labor Evaluation Frequency: none Monitor Mode: External Heart Rate FHR Baseline Rate: 140 Monitor Mode: External US Variability: Moderate 6-25 bpm Accelerations: 15X15 Comments: Frequent loss of contact Datetime: 07/02/2018 20:00 Labor Evaluation Frequency: none Monitor Mode: External Heart Rate FHR Baseline Rate: 135 Monitor Mode: External US Variability: Moderate 6-25 bpm Accelerations: 15X15 Datetime: 07/02/2018 19:30 Stage of : Antepartum Assessment Type: Admission Assessment Maternal Assessment Level of Consciousness: Fully Conscious DTR's/Clonus: DTRs 2+; No Clonus Headache: Denies Blurred Vision: No Respiratory Effort: Unlabored; Regular Rhythm; Equal Expansion Breath Sounds, Left: Clear and Equal Breath Sounds, Right: Clear and Equal Nausea/Vomiting: Denies RUQ Epigastric Pain: Denies Lower Extremities Edema: Left Lower Extremity Degree: None Upper Extremities Edema: None Degree: None Facial Edema: None Temperature Route: Oral Fall Risk Assessment History of Falling: (0) No Secondary Diagnosis: (0) No Ambulatory Aid: (0) Bedrest/Nurse Assist IV Therapy: (20) Yes Gait: (0) Normal/Bedrest/Immobile Mental Status: (0) Oriented to Own Ability Fall Score: 20 Fall Risk Score Definition: No Risk: No action required Comments: Patient states she feels active movement. Pain Assessment Pain Scale: 0 Pain Presence: None/Denies Pain Type: N/A Datetime: 07/02/2018 19:20 Resting Tone [place]: Relaxed Datetime: 07/02/2018 18:53 Comments: US ADJUSTED Datetime: 07/02/2018 15:16 Fall Score: 0 Fall Risk Score Definition: No Risk: No action required Datetime: 07/02/2018 15:14 EGA: 26.2 Additional Patient Complaints: HX OF GALL STOENS AND PANCREATItis Datetime: 06/17/2018 19:40 Fall Score: 0 Fall Risk Score Definition: No Risk: No action required Datetime: 06/17/2018 13:50 EGA: 24.1
[2018-07-18] MEDS: LACTATED RINGER'S 1,000 ML IV SCH ×2 (08:06→09:10)
[2018-07-18] MEDS: morphine 4 MG/ML VIAL IV PRN ×3 (08:32→20:43)
[2018-07-18] MEDS: PRENATAL VITAMIN PO SCH (09:00)
--- NOTE | 2018-07-18 14:39 | CONS ---
Assessment/Plan Assessment/Plan Hospital Course (Demo Recall) Summary Assessment and Plan: Assessment: Recurrent pancreatitis with pseudocyst Elevated LFT's Single IUP at 28 weeks Plan: We will check triglycerides/cholesterol levels As well a hepatitis panel MRCP- If positive for choledocholithiasis-patient will need urgent transfer to tertiary care center for possible ERCP Keep NPO Push IV fluids Supportive care Patient seen in collaboration with Dr. Mahmood CC: JANAK MAHMOOD MD ; Consultation Date/Type/Reason Admit Date/Time Jul 18, 2018 at 06:15 Date of Consultation: Jul 18, 2018 Type of Consult GI Reason for Consultation Pancreatitis Date/Time of Note DATE: 07/18/18 TIME: 14:16 Hx of Present Illness This is a 18-year-old with IUP at 28 weeks with PMH of pancreatitis with pseudocyst who presented to the ED with right sided flank pain. She has recently been hospitalized here at [facility] for same symptoms found to have pancreatitis with pancreatic pseudocyst. Workup here shows elevated amylase and lipase as well as elevated LFTs and a normal bilirubin abdominal ultrasound was obtained showing unchanged 3 mm polyp or sludge ball in the gallbladder, no evidence of acute cholecystitis and no significant change in the complex cystic structure of the pseudocyst left abdomen. Additionally, bile duct was noted to be 4.6 mm in maximal dimension. Currently patient is n.p.o. she is receiving IV fluids she denies nausea vomiting but does complain of severe right upper quadrant pain about 8 out of 10. She denies diarrhea or constipation no overt signs of GI bleed. Review of Systems: A 12 system, review was conducted and is negative except as noted in the HPI or here. Past Medical History Home Meds Reported Medications Vit No.130/Iron/FA ( Tablet) 1 Each Tablet, 1 EACH PO 07/02/18 Medications Current Medications Cefazolin Sodium/ Dextrose 50 ml @ 100 mls/hr Q8 IVPB Last administered on 07/18/18at 08:07; Admin Dose 100 MLS/HR; Start 07/18/18 at 06:30 Lactated Ringer's 1,000 ml @ 125 mls/hr Q8H IV Last administered on 07/18/18at 09:10; Admin Dose 125 MLS/HR; Start 07/18/18 at 07:26 Prenat Multivit/ [place]/Iron/Folic Ac () 1 tab DAILY PO ; Start 07/18/18 at 09:00 Famotidine (Pepcid Iv) 20 mg BID PRN IV acid reflux; Start 07/18/18 at 07:30 Morphine Sulfate (morphine) 4 mg Q2HWA PRN IV SEVERE PAIN LEVEL 7-10 Last administered on 07/18/18at 08:32; Admin Dose 4 MG; Start 07/18/18 at 08:30 Allergies: Coded Allergies: No Known Allergy (Unverified , 07/18/18) Past Surgical History Past Surgical Hx: no surgical history Social History Smoking Status: Never smoker Exam/Review of Systems Exam Exam PHYSICAL EXAMINATION: GENERAL: Well developed, well nourished, alert & oriented x 3, in no acute distress SKIN: No lesions EYES: Pupils equal reactive to light, no discharge. EARS/NOSE AND THROAT: Ears normal, nose normal NECK: Supple, no masses. CHEST: Inspection within normal limits. CARDIOVASCULAR: Heart: Regular rate and rhythm, RESPIRATORY: Lungs clear to auscultation GASTROINTESTINAL AND LIVER: Abdomen: Soft, RUQ pain, distended,IUP at 28 weeks no hernias, no masses, no organomegaly, no ascites, no guarding, no rebound t enderness, normoactive bowel sounds. Rectal: Deferred. EXTREMITIES: No cyanosis, clubbing or edema. Results Result Diagram: 07/18/18 0243 07/18/18 0243 Results 24hrs Laboratory Tests Test 07/18/18 02:43 07/18/18 03:13 White Blood Count 12.4 #H Red Blood Count 3.40 L Hemoglobin 11.0 L Hematocrit 32.4 L Mean Corpuscular Volume 95.3 Mean Corpuscular Hemoglobin 32.4 Mean Corpuscular Hemoglobin Concent 34.0 Red Cell Distribution Width 11.9 Platelet Count 252 Mean Platelet Volume 10.2 Immature Granulocytes % 0.600 H Neutrophils % 84.9 H Lymphocytes % 9.1 L Monocytes % 4.7 Eosinophils % 0.5 Basophils % 0.2 Nucleated Red Blood Cells % 0.0 Immature Granulocytes # 0.080 H Neutrophils # 10.6 H Lymphocytes # 1.1 Monocytes # 0.6 Eosinophils # 0.1 Basophils # 0.0 Nucleated Red Blood Cells # 0.0 Sodium Level 137 Potassium Level 4.0 Chloride Level 105 Carbon Dioxide Level 24 Anion Gap 8 Blood Urea Nitrogen 7 Creatinine 0.39 L Est Glomerular Filtrat Rate mL/min > 60 Glucose Level 110 Calcium Level 9.3 Total Bilirubin 0.4 Direct Bilirubin 0.00 Indirect Bilirubin 0.4 Aspartate Amino Transf (AST/SGOT) 161 H Alanine Aminotransferase (ALT/SGPT) 397 H Alkaline Phosphatase 238 H Total Protein 7.2 Albumin 3.6 Globulin 3.60 H Albumin/Globulin Ratio 1.00 Amylase Level 701 H Lipase 2830 H Urine Color BONG Urine Clarity TURBID A Urine pH 7.0 Urine Specific [place] 1.013 Urine Ketones NEGATIVE Urine Nitrite NEGATIVE Urine Bilirubin NEGATIVE Urine Urobilinogen NEGATIVE Urine Leukocyte Esterase NEGATIVE Urine Microscopic RBC 10 H Urine Microscopic WBC 3 Urine Squamous Epithelial Cells FEW Urine Amorphous Crystals MODERATE Urine Bacteria FEW A Urine Mucus MODERATE Urine Hemoglobin NEGATIVE Urine Glucose NEGATIVE Urine Total Protein NEGATIVE Medications Medication Current Medications Cefazolin Sodium/ Dextrose 50 ml @ 100 mls/hr Q8 IVPB Last administered on 07/18/18 08:07; Admin Dose 100 MLS/HR; Start 07/18/18 at 06:30 Lactated Ringer's 1,000 ml @ 125 mls/hr Q8H IV Last administered on 07/18/18at 09:10; Admin Dose 125 MLS/HR; Start 07/18/18 at 07:26 Prenat Multivit/ [employer]/Iron/Folic Ac () 1 tab DAILY PO ; Start 07/18/18 at 09:00 Famotidine (Pepcid Iv) 20 mg BID PRN IV acid reflux; Start 07/18/18 at 07:30 Morphine Sulfate (morphine) 4 mg Q2HWA PRN IV SEVERE PAIN LEVEL 7-10 Last administered on 07/18/18at 08:32; Admin Dose 4 MG; Start 07/18/18 at 08:30 RUDY ROSA Jul 18, 2018 14:28
[2018-07-18] MEDS: DEXTROSE 5%-LR 1,000 ML IV SCH (15:38)
[2018-07-18] MEDS: CEFAZOLIN 2 GM/50 ML (PMX) 50 ML IVPB SCH ×2 (17:31→23:46)
[2018-07-19] MEDS: DEXTROSE 5%-LR 1,000 ML IV SCH ×4 (01:35→23:54)
[2018-07-19] MEDS: morphine 4 MG/ML VIAL IV PRN (02:14)
[2018-07-19] MEDS: PRENATAL VITAMIN PO SCH (08:28)
[2018-07-19] MEDS ORDERED: HYDROCODONE/APAP (5/325) TAB PO ONE (08:30)
[2018-07-19] MEDS: CEFAZOLIN 2 GM/50 ML (PMX) 50 ML IVPB SCH ×3 (08:54→23:53)
--- NOTE | 2018-07-19 14:25 | PN ---
Date/Time of Note Date/Time of Note DATE: 07/19/18 TIME: 14:13 Assessment/Plan VTE Prophylaxis SCD applied (from Nsg): Yes Pharmacological prophylaxis: NA/contraindicated Pharm contraindication: other Lines/Catheters IV Catheter Type (from Nrsg): Peripheral IV Assessment/Plan Assessment/Plan Assessment: Recurrent pancreatitis with pseudocyst Cholelithiasis Pancreatic duct stricture Elevated LFT's and Lipase Mild ascites d/t pancreatitis Single IUP at 28 weeks Plan: Triglycerides/cholesterol levels - Normal Hepatitis panel - negative Keep NPO Push IV fluids Supportive care Patient seen in collaboration with Dr. Mahmood Subjective: Patient is feeling better. Abdominal pain is now 5/10. Denies nausea and vomiting today. Lipase is down to 768. LFT's are trending down. Discussed results of MRCP. No choledocholithiasis identified. Recommend further work up for pancreatic duct stricture after the childbirth. Will keep the patient NPO for now and monitor Lipase and abdominal pain. PHYSICAL EXAMINATION: GENERAL: Well developed, well nourished, alert & oriented x 3, in no acute distress SKIN: No lesions EYES: Pupils equal reactive to light, no discharge. EARS/NOSE AND THROAT: Ears normal, nose normal NECK: Supple, no masses. CHEST: Inspection within normal limits. CARDIOVASCULAR: Heart: Regular rate and rhythm, RESPIRATORY: Lungs clear to auscultation GASTROINTESTINAL AND LIVER: Abdomen: Soft, RUQ and epigastric pain, distended,IUP at 28 weeks no hernias, no masses, no organomegaly, no ascites, no guarding, no rebound tenderness, normoactive bowel sounds. Rectal: Deferred. EXTREMITIES: No cyanosis, clubbing or edema. Result Diagram: 07/18/18 0243 07/19/18 0625 Results 24hrs Laboratory Tests Test 07/18/18 14:32 07/19/18 06:23 07/19/18 06:25 Triglycerides Level 129 Cholesterol Level 185 Hepatitis B Surface Antigen NEGATIVE Hepatitis B Surface Antibody POSITIVE H Hepatitis C Antibody NEGATIVE Lab Scanned Report REFERENCE LAB Sodium Level 136 Potassium Level 3.8 Chloride Level 102 Carbon Dioxide Level 25 Anion Gap 9 Blood Urea Nitrogen 4 L Creatinine 0.34 L Est Glomerular Filtrat Rate mL/min > 60 Glucose Level 128 Calcium Level 8.5 Total Bilirubin 0.4 Direct Bilirubin 0.00 Indirect Bilirubin 0.4 Aspartate Amino Transf (AST/SGOT) 119 H Alanine Aminotransferase (ALT/SGPT) 313 H Alkaline Phosphatase 168 H Total Protein 6.0 #L Albumin 2.9 L Globulin 3.10 Albumin/Globulin Ratio 0.93 Amylase Level 211 #H Lipase 768 H CC: SHAHRZAD CONTRERAS ; Exam/Review of Systems Exam Vitals Intake and Output 07/18/18 07/18/18 07/19/18 1515:00 23:00 07:00 IntakeIntake Total 1075 ml 1000 ml OutputOutput Total 1400 ml 900 ml BalanceBalance -325 ml 100 ml Results Results 24hrs Laboratory Tests Test 07/18/18 14:32 07/19/18 06:23 07/19/18 06:25 Triglycerides Level 129 Cholesterol Level 185 Hepatitis B Surface Antigen NEGATIVE Hepatitis B Surface Antibody POSITIVE H Hepatitis C Antibody NEGATIVE Lab Scanned Report REFERENCE LAB Sodium Level 136 Potassium Level 3.8 Chloride Level 102 Carbon Dioxide Level 25 Anion Gap 9 Blood Urea Nitrogen 4 L Creatinine 0.34 L Est Glomerular Filtrat Rate mL/min > 60 Glucose Level 128 Calcium Level 8.5 Total Bilirubin 0.4 Direct Bilirubin 0.00 Indirect Bilirubin 0.4 Aspartate Amino Transf (AST/SGOT) 119 H Alanine Aminotransferase (ALT/SGPT) 313 H Alkaline Phosphatase 168 H Total Protein 6.0 #L Albumin 2.9 L Globulin 3.10 Albumin/Globulin Ratio 0.93 Amylase Level 211 #H Lipase 768 H Medications Medication Current Medications Prenat Multivit/ [place]/Iron/Folic Ac () 1 tab DAILY PO Last administered on 07/19/18at 08:28; Admin Dose 1 TAB; Start 07/18/18 at 09:00 Famotidine (Pepcid Iv) 20 mg BID PRN IV acid reflux Last administered on 07/19/18at 08:26; Admin Dose 20 MG; Start 07/18/18 at 07:30 Morphine Sulfate (morphine) 4 mg Q2HWA PRN IV SEVERE PAIN LEVEL 7-10 Last administered on 07/19/18at 02:14; Admin Dose 4 MG; Start 07/18/18 at 08:30 Cefazolin Sodium/ Dextrose 50 ml @ 100 mls/hr Q8H IVPB Last administered on 07/19/18at 08:54; Admin Dose 100 MLS/HR; Start 07/18/18 at 16:00 Dextrose/Lactated Ringer's 1,000 ml @ 125 mls/hr Q8H IV Last administered on 07/19/18at 07:54; Admin Dose 125 MLS/HR; Start 07/18/18 at 15:30 RALEIGH MALAVE NP Jul 19, 2018 14:23
--- NOTE | 2018-07-19 19:05 | QN ---
Documentation Comment epigastric blake far better also ruq stii sore but fr better vss afebrile abdomen soft bu most tender on epifastrium ++ lab result including AST. 161 to 119, ALT 337 to 313 lipase 2830 to 768, amylase 701 to 211 A IUP 28w5d with pancreatis with pseudo cyst cholelithiasis etc P GI aleady seen patient and explained the finding plan and finding Keep NPO with IV hydration and f/u with Lab LUIS MIGUEL MUNOZ MD Jul 19, 2018 19:05
[2018-07-20] MEDS: CEFAZOLIN 2 GM/50 ML (PMX) 50 ML IVPB SCH ×3 (09:14→23:56)
[2018-07-20] MEDS: DEXTROSE 5%-LR 1,000 ML IV SCH ×2 (09:14→18:54)
--- NOTE | 2018-07-20 12:56 | PN ---
Date/Time of Note Date/Time of Note DATE: 07/20/18 TIME: 12:53 Assessment/Plan VTE Prophylaxis SCD applied (from Nsg): Yes Pharmacological prophylaxis: NA/contraindicated Pharm contraindication: other Lines/Catheters IV Catheter Type (from Nrsg): Peripheral IV Assessment/Plan Assessment/Plan Assessment: Recurrent pancreatitis with pseudocyst Cholelithiasis Pancreatic duct stricture Elevated LFT's and Lipase Mild ascites d/t pancreatitis Single IUP at 28 weeks Plan: Start clear liquid diet Advance diet for dinner if remains pain-free Triglycerides/cholesterol levels - Normal Hepatitis panel - negative Patient seen in collaboration with Dr. Mahmood Subjective: Patient is feeling well. Denies abdominal pain, nausea or vomiting. The plan is to start clear liquid diet. If remains pain-free will advance to regular. Check labs in the morning. Recommend further work up for pancreatic duct stricture after the childbirth. PHYSICAL EXAMINATION: GENERAL: Well developed, well nourished, alert & oriented x 3, in no acute distress SKIN: No lesions EYES: Pupils equal reactive to light, no discharge. EARS/NOSE AND THROAT: Ears normal, nose normal NECK: Supple, no masses. CHEST: Inspection within normal limits. CARDIOVASCULAR: Heart: Regular rate and rhythm, RESPIRATORY: Lungs clear to auscultation GASTROINTESTINAL AND LIVER: Abdomen: Soft, RUQ and epigastric pain, distended,IUP at 28 weeks no hernias, no masses, no organomegaly, no ascites, no guarding, no rebound tenderness, normoactive bowel sounds. Rectal: Deferred. EXTREMITIES: No cyanosis, clubbing or edema. Result Diagram: 07/18/18 0243 07/19/18 0625 CC: JANAK MAHMOOD MD ; Exam/Review of Systems Exam Vitals Intake and Output 07/19/18 07/19/18 07/20/18 1515:00 23:00 07:00 IntakeIntake Total 1050 ml 675 ml 1250 ml OutputOutput Total 1550 ml BalanceBalance 1050 ml -875 ml 1250 ml Medications Medication Current Medications Prenat Multivit/ [place]/Iron/Folic Ac () 1 tab DAILY PO Last administered on 07/19/18at 08:28; Admin Dose 1 TAB; Start 07/18/18 at 09:00 Famotidine (Pepcid Iv) 20 mg BID PRN IV acid reflux Last administered on 07/19/18 08:26; Admin Dose 20 MG; Start 07/18/18 at 07:30 Morphine Sulfate (morphine) 4 mg Q2HWA PRN IV SEVERE PAIN LEVEL 7-10 Last administered on 07/19/18 02:14; Admin Dose 4 MG; Start 07/18/18 at 08:30 Cefazolin Sodium/ Dextrose 50 ml @ 100 mls/hr Q8H IVPB Last administered on 07/20/18 09:14; Admin Dose 100 MLS/HR; Start 07/18/18 at 16:00 Dextrose/Lactated Ringer's 1,000 ml @ 125 mls/hr Q8H IV Last administered on 07/20/18 09:14; Admin Dose 125 MLS/HR; Start 07/18/18 at 15:30 RALEIGH MALAVE NP Jul 20, 2018 12:55
--- NOTE | 2018-07-20 14:01 | QN ---
Documentation Comment HD #2 Pt is feeling much better and is pain free now. The hospitalist has advanced her diet to clear liquids and if she remains pain free than we can advance her to a low fat diet. Afebrile. VSS. Abdomen is gravid and nontender. NST reactive. No UC's. LFT's are improving. P: Will follow the recommendations of the hospitalist. The pt hungry and ready to eat. ROSY SCHMID MD Jul 20, 2018 14:01
[2018-07-20] MEDS: PRENATAL VITAMIN PO SCH (16:15)
[2018-07-20] MEDS ORDERED: DOCUSATE SODIUM 100 MG CAP PO PRN (23:00)
[2018-07-21] MEDS: CEFAZOLIN 2 GM/50 ML (PMX) 50 ML IVPB SCH (08:06)
--- NOTE | 2018-07-21 08:34 | QN ---
Documentation Comment 29+wks GA ,pancreatitis .cmfortable in bed +FM No CTX Vs stable Gen NAD Abd soft NT ND Genitalia Deferred NST reassuring [place] No CTXs -->Continious monitoring -->Management as per hospitalist DARSHAN MCKNIGHT M.D. Jul 21, 2018 08:34
[2018-07-21] MEDS: DEXTROSE 5%-LR 1,000 ML IV SCH (09:08)
[2018-07-21] MEDS: PRENATAL VITAMIN PO SCH (09:08)
--- NOTE | 2018-07-21 10:45 | PN ---
Date/Time of Note Date/Time of Note DATE: 07/21/18 TIME: 10:39 Assessment/Plan VTE Prophylaxis SCD applied (from Nsg): Yes Pharmacological prophylaxis: NA/contraindicated Pharm contraindication: other () Lines/Catheters IV Catheter Type (from Nrsg): Peripheral IV Assessment/Plan Assessment/Plan Assessment: Recurrent pancreatitis with pseudocyst Cholelithiasis Pancreatic duct stricture Elevated LFT's and Lipase Mild ascites d/t pancreatitis Single IUP at 28 weeks Plan: Triglycerides/cholesterol levels - Normal Hepatitis panel - negative Patient appears adequate for outpatient management Patient seen in collaboration with Dr. Mahmood Subjective: Patient is feeling well. Denies abdominal pain, nausea or vomiting. Tolerating low-fat diet well. Lipase is slightly increased, 840. Hemoglobin has dropped to 9.1- likely dilutional. From GI standpoint patient is adequate for outpatient management. Recommend further work up for pancreatic duct stricture after the childbirth. PHYSICAL EXAMINATION: GENERAL: Well developed, well nourished, alert & oriented x 3, in no acute distress SKIN: No lesions EYES: Pupils equal reactive to light, no discharge. EARS/NOSE AND THROAT: Ears normal, nose normal NECK: Supple, no masses. CHEST: Inspection within normal limits. CARDIOVASCULAR: Heart: Regular rate and rhythm, RESPIRATORY: Lungs clear to auscultation GASTROINTESTINAL AND LIVER: Abdomen: Soft, no tenderness, distended,IUP at 28 weeks no hernias, no masses, no organomegaly, no ascites, no guarding, no rebound tenderness, normoactive bowel sounds. Rectal: Deferred. EXTREMITIES: No cyanosis, clubbing or edema. Result Diagram: 07/21/18 0632 07/21/18 0632 Results 24hrs Laboratory Tests Test 07/21/18 06:32 White Blood Count 5.8 # Red Blood Count 2.83 L Hemoglobin 9.1 L Hematocrit 27.7 L Mean Corpuscular Volume 97.9 Mean Corpuscular Hemoglobin 32.2 Mean Corpuscular Hemoglobin Concent 32.9 Red Cell Distribution Width 12.0 Platelet Count 237 Mean Platelet Volume 9.7 Immature Granulocytes % 0.700 H Neutrophils % 64.5 Lymphocytes % 25.7 Monocytes % 6.2 Eosinophils % 2.7 Basophils % 0.2 Nucleated Red Blood Cells % 0.0 Immature Granulocytes # 0.040 H Neutrophils # 3.8 Lymphocytes # 1.5 Monocytes # 0.4 Eosinophils # 0.2 Basophils # 0.0 Nucleated Red Blood Cells # 0.0 Sodium Level 139 Potassium Level 3.6 Chloride Level 111 H Carbon Dioxide Level 23 Anion Gap 5 Blood Urea Nitrogen 3 L Creatinine 0.36 L Est Glomerular Filtrat Rate mL/min > 60 Glucose Level 77 Calcium Level 8.4 Total Bilirubin 0.3 Direct Bilirubin 0.00 Indirect Bilirubin 0.3 Aspartate Amino Transf (AST/SGOT) 31 Alanine Aminotransferase (ALT/SGPT) 134 H Alkaline Phosphatase 159 H Total Protein 5.6 L Albumin 2.7 L Globulin 2.90 Albumin/Globulin Ratio 0.93 Lipase 840 H Exam/Review of Systems Exam Vitals Intake and Output 07/20/18 07/20/18 07/21/18 1515:00 23:00 07:00 IntakeIntake Total 900 ml 1050 ml 50 ml OutputOutput Total 2325 ml BalanceBalance 900 ml -1275 ml 50 ml Results Results 24hrs Laboratory Tests Test 07/21/18 06:32 White Blood Count 5.8 # Red Blood Count 2.83 L Hemoglobin 9.1 L Hematocrit 27.7 L Mean Corpuscular Volume 97.9 Mean Corpuscular Hemoglobin 32.2 Mean Corpuscular Hemoglobin Concent 32.9 Red Cell Distribution Width 12.0 Platelet Count 237 Mean Platelet Volume 9.7 Immature Granulocytes % 0.700 H Neutrophils % 64.5 Lymphocytes % 25.7 Monocytes % 6.2 Eosinophils % 2.7 Basophils % 0.2 Nucleated Red Blood Cells % 0.0 Immature Granulocytes # 0.040 H Neutrophils # 3.8 Lymphocytes # 1.5 Monocytes # 0.4 Eosinophils # 0.2 Basophils # 0.0 Nucleated Red Blood Cells # 0.0 Sodium Level 139 Potassium Level 3.6 Chloride Level 111 H Carbon Dioxide Level 23 Anion Gap 5 Blood Urea Nitrogen 3 L Creatinine 0.36 L Est Glomerular Filtrat Rate mL/min > 60 Glucose Level 77 Calcium Level 8.4 Total Bilirubin 0.3 Direct Bilirubin 0.00 Indirect Bilirubin 0.3 Aspartate Amino Transf (AST/SGOT) 31 Alanine Aminotransferase (ALT/SGPT) 134 H Alkaline Phosphatase 159 H Total Protein 5.6 L Albumin 2.7 L Globulin 2.90 Albumin/Globulin Ratio 0.93 Lipase 840 H Medications Medication Current Medications Prenat Multivit/ [place]/Iron/Folic Ac () 1 tab DAILY PO Last administered on 07/21/18 09:08; Admin Dose 1 TAB; Start 07/18/18 at 09:00 Famotidine (Pepcid Iv) 20 mg BID PRN IV acid reflux Last administered on 07/19/18 08:26; Admin Dose 20 MG; Start 07/18/18 at 07:30 Morphine Sulfate (morphine) 4 mg Q2HWA PRN IV SEVERE PAIN LEVEL 7-10 Last administered on 07/19/18 02:14; Admin Dose 4 MG; Start 07/18/18 at 08:30 Cefazolin Sodium/ Dextrose 50 ml @ 100 mls/hr Q8H IVPB Last administered on 07/21/18 08:06; Admin Dose 100 MLS/HR; Start 07/18/18 at 16:00 Dextrose/Lactated Ringer's 1,000 ml @ 125 mls/hr Q8H IV Last administered on 07/21/18 09:08; Admin Dose 125 MLS/HR; Start 07/18/18 at 15:30 RALEIGH MALAVE NP Jul 21, 2018 10:45
--- NOTE | 2018-07-21 14:30 | DS ---
Date/Time of Note Date/Time of Note DATE: 07/21/18 TIME: 14:29 Discharge Summary Admission/Discharge Info Admit Date/Time Jul 18, 2018 at 06:15 Discharge Date/Time 07/18/2018 Discharge Diagnosis pancreatitis 28 +wks Patient Condition: Good Hospital Course uneventful Home Meds Reported Medications Vit No.130/Iron/FA ( Tablet) 1 Each Tablet, 1 EACH PO 07/02/18 Primary Care Provider [facility] Pending Labs Laboratory Tests Test 07/21/18 06:32 White Blood Count 5.8 10^3/ul (4.8-10.8) Red Blood Count 2.83 10^6/ul (4.20-5.40) Hemoglobin 9.1 g/dl (12.0-16.0) Hematocrit 27.7 % (37.0-47.0) Mean Corpuscular Volume 97.9 fl (72.0-104.0) Mean Corpuscular Hemoglobin 32.2 pg (29.0-33.0) Mean Corpuscular Hemoglobin Concent 32.9 g/dl (32.0-37.0) Red Cell Distribution Width 12.0 % (11.5-14.5) Platelet Count 237 10^3/UL (140-415) Mean Platelet Volume 9.7 fl (7.4-10.4) Immature Granulocytes % 0.700 % (0.001-0.429) Neutrophils % 64.5 % (30.0-74.0) Lymphocytes % 25.7 % (18.0-55.0) Monocytes % 6.2 % (0.0-13.0) Eosinophils % 2.7 % (0.0-7.0) Basophils % 0.2 % (0.0-2.0) Nucleated Red Blood Cells % 0.0 /100WBC (0.0-0.0) Immature Granulocytes # 0.040 10^3/ul (0.0-0.031) Neutrophils # 3.8 10^3/ul (1.6-7.5) Lymphocytes # 1.5 10^3/ul (0.8-2.9) Monocytes # 0.4 10^3/ul (0.3-0.9) Eosinophils # 0.2 10^3/ul (0.0-0.5) Basophils # 0.0 10^3/ul (0.0-0.1) Nucleated Red Blood Cells # 0.0 10^3/ul (0.0-0.0) Sodium Level 139 mmol/L (135-144) Potassium Level 3.6 mmol/L (3.5-5.1) Chloride Level 111 mmol/L (97-110) Carbon Dioxide Level 23 mmol/L (21-31) Anion Gap 5 (5-13) Blood Urea Nitrogen 3 mg/dl (7-20) Creatinine 0.36 mg/dl (0.44-1.00) Est Glomerular Filtrat Rate mL/min > 60 mL/min (>60) Glucose Level 77 mg/dl (70-220) Calcium Level 8.4 mg/dl (8.4-10.2) Total Bilirubin 0.3 mg/dl (0.2-1.3) Direct Bilirubin 0.00 mg/dl (0.00-0.20) Indirect Bilirubin 0.3 mg/dl (0-1.1) Aspartate Amino Transf (AST/SGOT) 31 IU/L (15-46) Alanine Aminotransferase (ALT/SGPT) 134 IU/L (13-69) Alkaline Phosphatase 159 IU/L (42-121) Total Protein 5.6 g/dl (6.1-8.1) Albumin 2.7 g/dl (3.3-4.9) Globulin 2.90 g/dl (1.3-3.2) Albumin/Globulin Ratio 0.93 Lipase 840 U/L (23-300) DARSHAN MCKNIGHT M.D. Jul 21, 2018 14:30
== END 2018-07-21 15:16 | disposition home or self-care (01) | DRG 831 ==
LOC: OBT 01:05 → L-D 01:05 → OBT 06:15 → L-D 07:50 → PP1 14:52
PROVIDERS: ADMIT Obstetrics & Gynecology; ATTEND Obstetrics & Gynecology
DX: O99.613 Diseases of the digestive system complicating pregnancy, third trimester (principal); K83.1 Obstruction of bile duct; K86.1 Other chronic pancreatitis; K86.3 Pseudocyst of pancreas; R18.8 Other ascites; K80.20 Calculus of gallbladder without cholecystitis without obstruction; Z3A.28 28 weeks gestation of pregnancy
CPT/HCPCS: 36415; 74181; 76705; 76817; 76818; 80053; 81001; 82150; 82465; 83690; 84478; 85025; 86706; 86709; 86803; 87086; 87340; 96360; 96361; 96365; G0463; J0131; J0690; J2270; J2405; J7120; J7121

== ENCOUNTER 2018-08-22 09:02 | Inpatient (IN) | payer OTHER ==
[~2018-08-22] VITALS: Ht 162.6 cm; Wt 83.4 kg
[2018-08-22 09:29] VITALS: Ht 162.6 cm; Wt 83.4 kg
[2018-08-22 09:30] VITALS: BP 115/64; PULSE 64
[2018-08-22] MEDS: DEXTROSE 5%-LR 1,000 ML IV SCH ×2 (16:10→22:51)
[2018-08-22] MEDS: MEPERIDINE 25 MG INJ IV PRN ×2 (16:27→20:38)
--- NOTE | 2018-08-22 22:08 | HP ---
Date/Time of Note Date/Time of Note DATE: 08/22/18 TIME: 22:05 OB - History Hx of Present Chief Complaint: abdominal pain Estimated Due Date: Oct 06, 2018 : 1 Para: 0 Spontaneous : 0 Therapeutic : 0 Care: Good Care Ultrasounds: Normal mid trimester US Obstetrical Complications: None Medical Complications: Other (chronic pancreatitis) Past Family/Social History * Past Medical, Surgical, Family and Obstetric Histories reviewed from ch art. OB Admission Exam Vital Signs Vital Signs Vital Signs Date Temp Pulse Resp B/P (MAP) Pulse Ox O2 O2 Flow FiO2 Time Delivery Rate 08/22/18 98.2 64 115/64 09:30 (81) Physical Exam HEENT: WNL Heart: Rhythm Normal Lungs: Clear, Equal Abdomen: WNL Extremities: Normal Reflexes: Normal Cervical Dilatation: None Membranes: Intact Heart Rate: 120's Accelerations: Accelerations Present Decelerations: No Decelerations Varibility: Moderate Last 72 hours Lab Results CBC & BMP 08/22/18 11:32 Liver Function Test 08/22/18 11:32 Alanine Aminotransferase (ALT/SGPT) 293 H Albumin 3.5 Alkaline Phosphatase 216 H Aspartate Amino Transf (AST/SGOT) 131 H Direct Bilirubin 0.00 Total Protein 6.8 OB Assessment/Plan Reason for admission: other Other Assessment: Pancreatitis, chronic with exacerbation Plan: Other Other plan: Admit IV hydration NPO Repeat labs in AM. MIMA ROLDAN MD August 22, 2018 22:08
[2018-08-23] MEDS: MEPERIDINE 25 MG INJ IV PRN ×3 (00:49→17:23)
[2018-08-23] MEDS: DEXTROSE 5%-LR 1,000 ML IV SCH (06:05)
--- NOTE | 2018-08-23 14:07 | QN ---
Documentation Comment Patient feels better. No new complaint. Afebrile VSS Strip Reactive labs improving Advance diet to clear liquids. MIMA ROLDAN MD August 23, 2018 14:07
[2018-08-23] MEDS: LACTATED RINGER'S 1,000 ML IV SCH ×2 (14:11→23:03)
[2018-08-24] MEDS: LACTATED RINGER'S 1,000 ML IV SCH ×3 (07:06→22:29)
--- NOTE | 2018-08-24 14:32 | QN ---
Documentation Comment Patient feels better and denies any pain. Afebrile VSS Strip reactive Labs improving Advance diet to non fat diet. MIMA ROLDAN MD August 24, 2018 14:32
[2018-08-25] MEDS: LACTATED RINGER'S 1,000 ML IV SCH (05:58)
--- NOTE | 2018-08-25 17:57 | PD.PPDC ---
CLIENT TECHNICAL SUPPORT ASSOCIATE Discharge Instruction Diagnosis [id number] Final Diagnosis: [id number] IUP 33w4d PTL chronic pancreatitis Condition [id number] Patient Condition: Orscz1c Stable Diet [id number] Diet: [id number] Special Diet Activity/Restrictions [id number] Activity: [id number] May Shower [id number] Restrictions: Nrgow3c No Exercising No Lifting Minimize Walking Minimize Stair-climbing No Sexual Activity Nothing in the Vagina No [place] No Tampons, douche [id number] Return to Work or School: [id number] August 27, 2018 Follow-up Follow-up with Physician: 3, Day/Days Provider Information: at her OB Return to clinic for [id number] COUGAR HUNTER Instructions: [id number] Worsening abdominal pain Unable to tolerate diet LUIS MIGUEL MUNOZ MD August 25, 2018 17:57
--- NOTE | 2018-08-25 18:04 | DS ---
Date/Time of Note Date/Time of Note DATE: 08/25/18 TIME: 17:58 Obstetrical Discharge Record Final Diagnosis Final Diagnosis: not delivered Other Final Diagnosis chronic pancreatitis IUP [id number] R/O PTL Complications Other (chronic pancreatitis) Augmentation: No Induction: No Rupture of Membranes: No Condition on Discharge Physical Assessment Last Vitals: vss afebrile still elevated pancreatic enzyme with AST ALT AP tolerating liquid no c/o uc's no GI sx Voiding: Yes Bowel Movement: Yes Breast: Soft, non-tender Fundus: Other () Abdomen and Incision: no uc's CAT I Episiotomy: n/a Calf Tenderness: No Patient Condition: Stable LUIS MIGUEL MUNOZ MD August 25, 2018 18:04
== END 2018-08-25 17:00 | disposition home or self-care (01) | DRG 832 ==
LOC: OBT 09:02 → L-D 09:04 → OBT 15:30 → PP1 15:30 → L-D 08-24 17:22
PROVIDERS: ADMIT Obstetrics & Gynecology; ATTEND Obstetrics & Gynecology
DX: O26.893 Other specified pregnancy related conditions, third trimester (principal); K86.1 Other chronic pancreatitis; Z3A.33 33 weeks gestation of pregnancy
CPT/HCPCS: 36415; 76815; 76817; 80053; 80076; 81001; 81003; 82150; 82731; 83690; 85025; 87086; G0463; J2175; J7120; J7121

== ENCOUNTER 2018-09-19 20:55 | Outpatient (CLI) | payer OTHER ==
[~2018-09-19] VITALS: Ht 162.6 cm; Wt 86.2 kg
[2018-09-19 21:07] VITALS: BP 119/64; PULSE 69; RESP 19; Ht 162.6 cm; Wt 86.2 kg
--- NOTE | 2018-09-20 00:01 | TRIAGE ---
OB Triage Datetime Report Generated by CPN: 09/19/2018 23:59 Datetime: 09/19/2018 21:22 Labor Evaluation Frequency: 2-5 Monitor Mode: External Duration (sec)2399: 50-70 Quality: Mild Pattern: Normal: <= 5 Contractions in 10 Minutes Resting Tone [place]: Relaxed Monitor Mode: External US Variability: Moderate 6-25 bpm Accelerations: 15X15 Decelerations: None Category: Category I Datetime: 09/19/2018 21:18 Vaginal Exam Dilatation (cms): 0.0 Effacement (%): 50 Station: -2 Exam By: A GHUKASYAN Datetime: 09/19/2018 21:05 Assessment Type: Triage Maternal Assessment Level of Consciousness: Fully Conscious DTR's/Clonus: DTRs 2+; No Clonus Headache: Denies Blurred Vision: No Respiratory Effort: Unlabored; Regular Rhythm; Equal Expansion Breath Sounds, Left: Clear and Equal Breath Sounds, Right: Clear and Equal Nausea/Vomiting: Denies RUQ Epigastric Pain: Denies Lower Extremities Edema: None Degree: None Upper Extremities Edema: None Degree: None Facial Edema: None Fall Risk Assessment History of Falling: (0) No Secondary Diagnosis: (0) No Ambulatory Aid: (0) Bedrest/Nurse Assist IV Therapy: (0) No Gait: (0) Normal/Bedrest/Immobile Mental Status: (0) Oriented to Own Ability Fall Score: 0 Fall Risk Score Definition: No Risk: No action required Datetime: 09/19/2018 21:04 Time of Arrival: 09/19/2018 20:30 EGA: 37.4 Arrived By: Ambulatory Arrived From: Home Chief Complaint: LEAKING SINCE LAST NIGHT Movement: Present Contractions: Denies/Absent Rupture of Membranes: Unsure Vaginal Bleeding: None Vaginal Discharge: Present Recent Sexual Intercouse: Denies Abdominal Trauma: Not Applicable Patient Complaints: Other Initial Plan: NST, BPP ADRIANNA ROM+ Datetime: 08/25/2018 16:38 Stage of : Labor Datetime: 08/25/2018 16:34 Stage of : Antepartum Datetime: 08/25/2018 16:24 Stage of : Antepartum Temperature Route: Oral Labor Evaluation Frequency: 0 Monitor Mode: External Pattern: Normal: <= 5 Contractions in 10 Minutes Resting Tone [place]: Relaxed Heart Rate FHR Baseline Rate: 140 Monitor Mode: External US FHR Baseline Changes: No Baseline Change Variability: Moderate 6-25 bpm Accelerations: 15X15 Decelerations: None Category: Category I Pain Assessment Pain Scale: 0 Pain Presence: None/Denies Pain Goal: 0 Datetime: 08/25/2018 16:15 Stage of : Antepartum Datetime: 08/25/2018 13:10 Stage of : Antepartum Temperature Route: Oral Pain Assessment Pain Scale: 0 Pain Goal: 0 Datetime: 08/25/2018 10:30 Labor Evaluation Frequency: 0 Monitor Mode: External Duration (sec)2399: 0 Pattern: Normal: <= 5 Contractions in 10 Minutes Resting Tone [place]: Relaxed Heart Rate FHR Baseline Rate: 140 Monitor Mode: External US FHR Baseline Changes: No Baseline Change Variability: Moderate 6-25 bpm Accelerations: 15X15 Decelerations: None Category: Category I Datetime: 08/25/2018 09:33 Stage of : Antepartum Temperature Route: Oral Pain Assessment Pain Scale: 0 Pain Presence: None/Denies Pain Goal: 0 Datetime: 08/25/2018 09:00 Assessment Type: Ongoing Assessment Maternal Assessment Level of Consciousness: Fully Conscious DTR's/Clonus: DTRs 2+; No Clonus Headache: Denies Blurred Vision: No Respiratory Effort: Unlabored; Regular Rhythm; Equal Expansion Breath Sounds, Left: Clear and Equal Breath Sounds, Right: Clear and Equal Nausea/Vomiting: Denies RUQ Epigastric Pain: Denies Lower Extremities Edema: None Degree: None Upper Extremities Edema: None Degree: None Facial Edema: None Fall Risk Assessment History of Falling: (0) No Secondary Diagnosis: (0) No Ambulatory Aid: (0) Bedrest/Nurse Assist IV Therapy: (20) Yes Gait: (0) Normal/Bedrest/Immobile Mental Status: (0) Oriented to Own Ability Fall Score: 20 Fall Risk Score Definition: No Risk: No action required Datetime: 08/25/2018 07:00 Stage of : Antepartum Maternal Assessment Level of Consciousness: Fully Conscious Labor Evaluation Frequency: 0 Monitor Mode: External Pattern: Normal: <= 5 Contractions in 10 Minutes Resting Tone [place]: Relaxed Pain Assessment Pain Scale: 0 Pain Presence: None/Denies Pain Goal: 0 Pain Relief Measures: Comfort Measures Datetime: 08/25/2018 05:56 Stage of : Antepartum Maternal Assessment Level of Consciousness: Fully Conscious Temperature Route: Oral Labor Evaluation Frequency: 0 Monitor Mode: External Pattern: Normal: <= 5 Contractions in 10 Minutes Resting Tone [place]: Relaxed Pain Assessment Pain Scale: 0 Pain Presence: None/Denies Pain Goal: 0 Pain Relief Measures: Comfort Measures Datetime: 08/25/2018 04:20 Stage of : Antepartum Maternal Assessment Level of Consciousness: Fully Conscious Labor Evaluation Frequency: 0 Monitor Mode: External Pattern: Normal: <= 5 Contractions in 10 Minutes Resting Tone [place]: Relaxed Pain Assessment Pain Scale: 0 Pain Presence: None/Denies Pain Goal: 0 Pain Relief Measures: Comfort Measures Datetime: 08/25/2018 03:20 Stage of : Antepartum Maternal Assessment Level of Consciousness: Fully Conscious Labor Evaluation Frequency: 0 Monitor Mode: External Pattern: Normal: <= 5 Contractions in 10 Minutes Resting Tone [place]: Relaxed Pain Assessment Pain Scale: 0 Pain Presence: None/Denies Pain Goal: 0 Pain Relief Measures: Comfort Measures Datetime: 08/25/2018 02:20 Stage of : Antepartum Maternal Assessment Level of Consciousness: Fully Conscious Labor Evaluation Frequency: 0 Monitor Mode: External Pattern: Normal: <= 5 Contractions in 10 Minutes Resting Tone [place]: Relaxed Pain Assessment Pain Scale: 0 Pain Presence: None/Denies Pain Goal: 0 Pain Relief Measures: Comfort Measures Datetime: 08/25/2018 01:20 Stage of : Antepartum Maternal Assessment Level of Consciousness: Fully Conscious Labor Evaluation Frequency: 0 Monitor Mode: External Pattern: Normal: <= 5 Contractions in 10 Minutes Resting Tone [place]: Relaxed Pain Assessment Pain Scale: 0 Pain Presence: None/Denies Pain Goal: 0 Pain Relief Measures: Comfort Measures Datetime: 08/25/2018 00:20 Stage of : Antepartum Maternal Assessment Level of Consciousness: Fully Conscious Labor Evaluation Frequency: 0 Monitor Mode: External Pattern: Normal: <= 5 Contractions in 10 Minutes Resting Tone [place]: Relaxed Pain Assessment Pain Scale: 0 Pain Presence: None/Denies Pain Goal: 0 Pain Relief Measures: Comfort Measures Datetime: 08/24/2018 23:20 Stage of : Antepartum Maternal Assessment Level of Consciousness: Fully Conscious Temperature Route: Oral Labor Evaluation Frequency: 0 Monitor Mode: External Pattern: Normal: <= 5 Contractions in 10 Minutes Resting Tone [place]: Relaxed Pain Assessment Pain Scale: 0 Pain Presence: None/Denies Pain Goal: 0 Pain Relief Measures: Comfort Measures Datetime: 08/24/2018 22:10 Stage of : Antepartum Maternal Assessment Level of Consciousness: Fully Conscious Labor Evaluation Frequency: x2 Monitor Mode: External Duration (sec)2399: 60 Quality: Mild Pattern: Normal: <= 5 Contractions in 10 Minutes Resting Tone [place]: Relaxed Pain Assessment Pain Scale: 0 Pain Presence: None/Denies Pain Goal: 0 Pain Relief Measures: Comfort Measures Datetime: 08/24/2018 21:05 Stage of : Antepartum Maternal Assessment Level of Consciousness: Fully Conscious DTR's/Clonus: DTRs 2+; No Clonus Headache: Denies Breath Sounds, Left: Clear and Equal Breath Sounds, Right: Clear and Equal Nausea/Vomiting: Denies RUQ Epigastric Pain: Present Labor Evaluation Frequency: x1 Monitor Mode: External Duration (sec)2399: 60 Quality: Mild Pattern: Normal: <= 5 Contractions in 10 Minutes Resting Tone [place]: Relaxed Heart Rate FHR Baseline Rate: 145 Monitor Mode: External US FHR Baseline Changes: No Baseline Change Variability: Moderate 6-25 bpm Accelerations: 15X15 Decelerations: None Pain Assessment Pain Scale: 0 Pain Presence: None/Denies Pain Goal: 0 Pain Relief Measures: Comfort Measures Datetime: 08/24/2018 20:10 Comments: Ultrasound Doppler off following NST Datetime: 08/24/2018 20:04 Stage of : Antepartum Assessment Type: Ongoing Assessment Maternal Assessment Level of Consciousness: Fully Conscious DTR's/Clonus: DTRs 2+; No Clonus Headache: Denies Blurred Vision: No Respiratory Effort: Unlabored; Regular Rhythm; Equal Expansion Breath Sounds, Left: Clear and Equal Breath Sounds, Right: Clear and Equal Nausea/Vomiting: Denies RUQ Epigastric Pain: Present Lower Extremities Edema: None Degree: None Upper Extremities Edema: None Degree: None Facial Edema: None Temperature Route: Oral Fall Risk Assessment History of Falling: (0) No Secondary Diagnosis: (0) No Ambulatory Aid: (0) Bedrest/Nurse Assist IV Therapy: (20) Yes Gait: (0) Normal/Bedrest/Immobile Mental Status: (0) Oriented to Own Ability Fall Score: 20 Fall Risk Score Definition: No Risk: No action required Labor Evaluation Frequency: x3 Monitor Mode: External Duration (sec)2399: 50-60 Quality: Mild Pattern: Normal: <= 5 Contractions in 10 Minutes Resting Tone [place]: Relaxed Contraction Comments: [place] left on when NST complete, to further monitor uterine activity. Heart Rate FHR Baseline Rate: 135 Monitor Mode: External US FHR Baseline Changes: No Baseline Change Variability: Moderate 6-25 bpm Accelerations: 15X15 Decelerations: None Category: Category I Comments: Ultrasound Off-NST complete-Reactive Pain Assessment Pain Scale: 0 Pain Presence: None/Denies Pain Goal: 0 Pain Relief Measures: Comfort Measures Datetime: 08/24/2018 19:06 Labor Evaluation Frequency: NONE PALPATED Monitor Mode: External Heart Rate FHR Baseline Rate: 145 Monitor Mode: External US Datetime: 08/24/2018 19:05 Stage of : Antepartum Temperature Route: Oral Pain Assessment Pain Scale: 0 Pain Presence: None/Denies Pain Goal: 0 Datetime: 08/24/2018 17:00 Stage of : Antepartum Maternal Assessment Level of Consciousness: Fully Conscious Headache: Denies Nausea/Vomiting: Denies RUQ Epigastric Pain: Denies Resting Tone [place]: Relaxed Pain Assessment Pain Scale: 0 Pain Presence: None/Denies Vaginal Bleeding: None Datetime: 08/24/2018 16:45 Labor Evaluation Frequency: 0/hr Monitor Mode: External Heart Rate FHR Baseline Rate: 145 Monitor Mode: External US Variability: Moderate 6-25 bpm Accelerations: 15X15 Datetime: 08/24/2018 16:05 Stage of : Antepartum Labor Evaluation Frequency: 0/hr Monitor Mode: External Heart Rate FHR Baseline Rate: 140 Monitor Mode: External US Variability: Moderate 6-25 bpm Accelerations: 15X15 Decelerations: None Datetime: 08/24/2018 15:36 Stage of : Antepartum Maternal Assessment Level of Consciousness: Fully Conscious Headache: Denies Nausea/Vomiting: Denies RUQ Epigastric Pain: Denies Temperature Route: Oral Resting Tone [place]: Relaxed Pain Assessment Pain Scale: 0 Pain Presence: None/Denies Vaginal Bleeding: None Datetime: 08/24/2018 15:32 Labor Evaluation Frequency: 0/hr Monitor Mode: External Heart Rate FHR Baseline Rate: 135 Monitor Mode: External US Variability: Moderate 6-25 bpm Accelerations: 15X15 Decelerations: None Datetime: 08/24/2018 13:26 Labor Evaluation Frequency: 0/hr Monitor Mode: External Heart Rate FHR Baseline Rate: 135 Monitor Mode: External US Variability: Moderate 6-25 bpm Accelerations: 15X15 Decelerations: None Datetime: 08/24/2018 12:00 Stage of : Antepartum Maternal Assessment Level of Consciousness: Fully Conscious Headache: Denies Nausea/Vomiting: Denies RUQ Epigastric Pain: Denies Labor Evaluation Frequency: 0/hr Monitor Mode: External Heart Rate FHR Baseline Rate: 140 Monitor Mode: External US Variability: Moderate 6-25 bpm Accelerations: 15X15 Decelerations: None Pain Assessment Pain Scale: 0 Pain Location: ruq Pain Relief Measures: Comfort Measures Vaginal Bleeding: None Datetime: 08/24/2018 11:20 Pain Presence: None/Denies Pain Assessment Comments: pt. denies any pain w/ ambulation and pt. wants to d/c home. rn paged dr delshad to discuss poc Datetime: 08/24/2018 11:00 Stage of : Antepartum Maternal Assessment Level of Consciousness: Fully Conscious Headache: Denies Nausea/Vomiting: Denies RUQ Epigastric Pain: Present Labor Evaluation Frequency: 0/hr Monitor Mode: External Heart Rate FHR Baseline Rate: 145 Monitor Mode: External US Variability: Moderate 6-25 bpm Accelerations: 15X15 Decelerations: None Pain Assessment Pain Scale: 4 Pain Presence: Chronic Pain Type: Dull Pain Location: ruq Pain Relief Measures: Comfort Measures Vaginal Bleeding: None Datetime: 08/24/2018 10:00 Stage of : Antepartum Maternal Assessment Level of Consciousness: Fully Conscious Headache: Denies Nausea/Vomiting: Denies RUQ Epigastric Pain: Present Labor Evaluation Frequency: irregular Monitor Mode: External Duration (sec)2399: 60 Quality: Mild Resting Tone [place]: Relaxed Heart Rate FHR Baseline Rate: 145 Monitor Mode: External US Variability: Moderate 6-25 bpm Accelerations: 15X15 Decelerations: None Pain Assessment Pain Scale: 4 Pain Presence: Chronic Pain Type: Dull Pain Location: ruq Pain Relief Measures: Comfort Measures Membrane Status: Intact Vaginal Bleeding: None Datetime: 08/24/2018 09:45 Pain Assessment Pain Scale: 3 Pain Presence: Constant Pain Assessment Comments: pt. states she is comfortable Datetime: 08/24/2018 09:03 Labor Evaluation Frequency: 7/hr Monitor Mode: External Quality: Mild Contraction Comments: pt. denies uc's or cramping. Heart Rate FHR Baseline Rate: 145 Monitor Mode: External US Variability: Moderate 6-25 bpm Accelerations: 15X15 Decelerations: None Datetime: 08/24/2018 08:12 Labor Evaluation Frequency: 6-10 Monitor Mode: External Duration (sec)2399: 40-70 Quality: Moderate Heart Rate FHR Baseline Rate: 135 Monitor Mode: External US Variability: Moderate 6-25 bpm Accelerations: 10X10 Decelerations: None Datetime: 08/24/2018 07:57 Stage of : Antepartum Maternal Assessment Level of Consciousness: Fully Conscious Temperature Route: Oral Datetime: 08/24/2018 07:56 Pain Presence: None/Denies Datetime: 08/24/2018 07:33 Heart Rate FHR Baseline Rate: 135 Monitor Mode: External US Variability: Moderate 6-25 bpm Accelerations: 15X15 Decelerations: None Datetime: 08/24/2018 07:29 Assessment Type: Ongoing Assessment Maternal Assessment Level of Consciousness: Fully Conscious DTR's/Clonus: DTRs 2+; No Clonus Headache: Denies Blurred Vision: No Respiratory Effort: Unlabored; Regular Rhythm; Equal Expansion Breath Sounds, Left: Clear and Equal Breath Sounds, Right: Clear and Equal Nausea/Vomiting: Denies RUQ Epigastric Pain: Present (Annotations: pt. hx. chronic pancreatitis. pain puq at this time but acceptable to pt.) Lower Extremities Edema: None Degree: None Upper Extremities Edema: None Degree: None Facial Edema: None Fall Risk Assessment History of Falling: (0) No Secondary Diagnosis: (0) No Ambulatory Aid: (0) Bedrest/Nurse Assist IV Therapy: (20) Yes Gait: (0) Normal/Bedrest/Immobile Mental Status: (0) Oriented to Own Ability Fall Score: 20 Fall Risk Score Definition: No Risk: No action required Datetime: 08/24/2018 07:10 Stage of : Antepartum Stage of : Antepartum Pain Assessment Pain Scale: 4 Pain Presence: Constant Pain Relief Measures: Comfort Measures Pain Assessment Comments: pt. states pain improved and tolerable at this time Datetime: 08/24/2018 06:58 Labor Evaluation Frequency: X5 Monitor Mode: External Duration (sec)2399: 50-60 Quality: Mild Resting Tone [place]: Relaxed Heart Rate FHR Baseline Rate: 145 Monitor Mode: External US Variability: Moderate 6-25 bpm Accelerations: 15X15 Decelerations: None Category: Category I Pain Presence: None/Denies Pain Type: N/A Datetime: 08/24/2018 06:00 Labor Evaluation Frequency: X9 Monitor Mode: External Duration (sec)2399: 40-70 Quality: Mild Resting Tone [place]: Relaxed Heart Rate FHR Baseline Rate: 135 Variability: Moderate 6-25 bpm Accelerations: 15X15 Decelerations: Variable Category: Category II Pain Presence: None/Denies Pain Type: N/A Datetime: 08/24/2018 05:00 Labor Evaluation Frequency: NONE Monitor Mode: External Resting Tone [place]: Relaxed Heart Rate FHR Baseline Rate: 135 Monitor Mode: External US Variability: Moderate 6-25 bpm Accelerations: 15X15 Decelerations: None Category: Category I Pain Presence: None/Denies Pain Type: N/A Datetime: 08/24/2018 04:00 Labor Evaluation Frequency: X6 Monitor Mode: External Duration (sec)2399: 40-60 Quality: Mild Resting Tone [place]: Relaxed Heart Rate FHR Baseline Rate: 140 Monitor Mode: External US Variability: Moderate 6-25 bpm Accelerations: 15X15 Decelerations: None Category: Category I Pain Presence: None/Denies Pain Type: N/A Datetime: 08/24/2018 03:00 Labor Evaluation Frequency: X7 Monitor Mode: External Duration (sec)2399: 40-70 Quality: Mild Resting Tone [place]: Relaxed Heart Rate FHR Baseline Rate: 140 Monitor Mode: External US Variability: Moderate 6-25 bpm Accelerations: 15X15 Decelerations: None Category: Category I Pain Presence: None/Denies Pain Type: N/A Pain Assessment Comments: PT SLEEPING WITH EVEN UNLABORED BREATHING Datetime: 08/24/2018 02:00 Labor Evaluation Frequency: X5 Monitor Mode: External Duration (sec)2399: 40-50 Quality: Mild Resting Tone [place]: Relaxed Heart Rate FHR Baseline Rate: 135 Monitor Mode: External US Variability: Moderate 6-25 bpm Accelerations: 15X15 Decelerations: None Category: Category I Pain Presence: None/Denies Pain Type: N/A Pain Assessment Comments: PT SLEEPING WITH EVEN UNLABORED BREATHING Datetime: 08/24/2018 01:00 Stage of : Antepartum Labor Evaluation Frequency: X4 Monitor Mode: External Duration (sec)2399: 50-70 Quality: Mild Resting Tone [place]: Relaxed Heart Rate FHR Baseline Rate: 140 Monitor Mode: External US Variability: Moderate 6-25 bpm Accelerations: 15X15 Decelerations: None Category: Category I Pain Presence: None/Denies Pain Type: N/A Pain Assessment Comments: PT DENIES ANY NEEDS AT THIS TIME Datetime: 08/24/2018 00:30 Monitor Mode: External US Datetime: 08/24/2018 00:00 Labor Evaluation Frequency: OCCASSIONAL 60-90 Monitor Mode: External Quality: Mild Resting Tone [place]: Relaxed Heart Rate FHR Baseline Rate: 135 Monitor Mode: External US Variability: Moderate 6-25 bpm Accelerations: 15X15 Decelerations: None Category: Category I Pain Presence: None/Denies Pain Type: N/A Datetime: 08/23/2018 23:51 Stage of : Antepartum Temperature Route: Oral Pain Presence: None/Denies Pain Type: N/A Pain Assessment Comments: PT DENIES ANY NEEDS AT THIS TIME Datetime: 08/23/2018 23:00 Labor Evaluation Frequency: NONE Monitor Mode: External Resting Tone [place]: Relaxed Heart Rate FHR Baseline Rate: 135 Monitor Mode: External US Variability: Moderate 6-25 bpm Accelerations: 15X15 Decelerations: None Category: Category I Pain Presence: None/Denies Pain Type: N/A Datetime: 08/23/2018 21:52 Labor Evaluation Frequency: NONE Monitor Mode: External Resting Tone [place]: Relaxed Contraction Comments: UTERINE IRRITABILITY NOTED Heart Rate FHR Baseline Rate: 135 Monitor Mode: External US Variability: Moderate 6-25 bpm Accelerations: 15X15 Decelerations: None Category: Category I Pain Presence: None/Denies Pain Type: N/A Datetime: 08/23/2018 21:00 Labor Evaluation Frequency: OCCASSIONAL Monitor Mode: External Duration (sec)2399: 40-0 Quality: Mild Resting Tone [place]: Relaxed Contraction Comments: WITH SOME UTERINE IRRITABILITY. Heart Rate FHR Baseline Rate: 140 Monitor Mode: External US Variability: Moderate 6-25 bpm Accelerations: 15X15 Decelerations: None Category: Category I Pain Presence: None/Denies Pain Type: N/A Datetime: 08/23/2018 20:00 Labor Evaluation Frequency: IRREG Monitor Mode: External Duration (sec)2399: 40-60 Quality: Mild Resting Tone [place]: Relaxed Heart Rate FHR Baseline Rate: 135 Monitor Mode: External US Variability: Moderate 6-25 bpm Accelerations: 15X15 Decelerations: None Category: Category I Pain Presence: None/Denies Pain Type: N/A Pain Assessment Comments: PT STATES SHE FEELS GOOD RIGHT NOW. Datetime: 08/23/2018 19:58 Stage of : Antepartum Assessment Type: Ongoing Assessment Maternal Assessment Level of Consciousness: Fully Conscious DTR's/Clonus: DTRs 2+; No Clonus Headache: Denies Blurred Vision: No Respiratory Effort: Unlabored; Regular Rhythm; Equal Expansion Breath Sounds, Left: Clear and Equal Breath Sounds, Right: Clear and Equal Nausea/Vomiting: Denies RUQ Epigastric Pain: Denies Lower Extremities Edema: None Degree: None Upper Extremities Edema: None Degree: None Facial Edema: None Temperature Route: Oral Fall Risk Assessment History of Falling: (0) No Secondary Diagnosis: (0) No Ambulatory Aid: (0) Bedrest/Nurse Assist IV Therapy: (0) No Gait: (0) Normal/Bedrest/Immobile Mental Status: (0) Oriented to Own Ability Fall Score: 0 Fall Risk Score Definition: No Risk: No action required Monitor Mode: External Contraction Comments: PT DENIES UC'S Monitor Mode: External US Comments: PT STATES + FM Pain Presence: None/Denies Pain Type: N/A Membrane Status: Intact Vaginal Bleeding: None Datetime: 08/23/2018 17:59 Labor Evaluation Frequency: q2-5 Monitor Mode: External Duration (sec)2399: 30-50 Quality: Mild Resting Tone [place]: Relaxed Heart Rate FHR Baseline Rate: 135 Monitor Mode: External US FHR Baseline Changes: No Baseline Change Variability: Moderate 6-25 bpm Accelerations: 15X15 Decelerations: None Category: Category I Datetime: 08/23/2018 17:39 Comments: monitors back on after shower Datetime: 08/23/2018 15:27 Labor Evaluation Frequency: occasional Monitor Mode: External Quality: Mild Resting Tone [place]: Relaxed Heart Rate FHR Baseline Rate: 140 Monitor Mode: External US FHR Baseline Changes: No Baseline Change Variability: Moderate 6-25 bpm Accelerations: 15X15 Decelerations: None Category: Category I Datetime: 08/23/2018 14:26 Labor Evaluation Frequency: 6/hr Monitor Mode: External Duration (sec)2399: 50-60 Quality: Mild Resting Tone [place]: Relaxed Heart Rate FHR Baseline Rate: 140 Monitor Mode: External US FHR Baseline Changes: No Baseline Change Variability: Moderate 6-25 bpm Accelerations: 15X15 Decelerations: None Category: Category I Datetime: 08/23/2018 13:38 Labor Evaluation Frequency: occasional Monitor Mode: External Quality: Mild Resting Tone [place]: Relaxed Contraction Comments: pt denies feeling contractions Heart Rate FHR Baseline Rate: 130 Monitor Mode: External US FHR Baseline Changes: No Baseline Change Variability: Moderate 6-25 bpm Accelerations: 15X15 Decelerations: None Category: Category I Datetime: 08/23/2018 12:58 Heart Rate FHR Baseline Rate: 130 Monitor Mode: External US FHR Baseline Changes: No Baseline Change Variability: Moderate 6-25 bpm Accelerations: 15X15 Decelerations: None Category: Category I Pain Assessment Pain Scale: 5 Pain Goal: 0 Pain Assessment Comments: pt texting, smiling, does not appear to be uncomfortable Datetime: 08/23/2018 11:51 Comments: awakened pt or reposition of u/s Datetime: 08/23/2018 11:23 Labor Evaluation Frequency: q2-3 Monitor Mode: External Duration (sec)2399: 30-100 Quality: Mild Resting Tone [place]: Relaxed Contraction Comments: pt is asleep Comments: loc, pt is asleelp Datetime: 08/23/2018 09:32 Labor Evaluation Frequency: q2-5 min Monitor Mode: External Duration (sec)2399: 30-60 Quality: Mild Resting Tone [place]: Relaxed Contraction Comments: pt does not feel contractions, feels baby moving Heart Rate FHR Baseline Rate: 140 Monitor Mode: External US FHR Baseline Changes: No Baseline Change Variability: Moderate 6-25 bpm Accelerations: 15X15 Decelerations: None Category: Category I Datetime: 08/23/2018 09:11 Labor Evaluation Frequency: occasional Monitor Mode: External Quality: Mild Resting Tone [place]: Relaxed Heart Rate FHR Baseline Rate: 140 Monitor Mode: External US FHR Baseline Changes: No Baseline Change Variability: Moderate 6-25 bpm Accelerations: 15X15 Decelerations: Variable Category: Category II Pain Assessment Pain Scale: 8 Pain Presence: Intermittent Pain Type: Stabbing Pain Relief Measures: Pain Medication Given Pain Assessment Comments: when she moves, 5 when she doesnt move Datetime: 08/23/2018 09:08 Assessment Type: Ongoing Assessment Maternal Assessment Level of Consciousness: Fully Conscious DTR's/Clonus: DTRs 2+; No Clonus Headache: Denies Blurred Vision: No Respiratory Effort: Unlabored; Regular Rhythm; Equal Expansion Breath Sounds, Left: Clear and Equal Breath Sounds, Right: Clear and Equal Nausea/Vomiting: Denies RUQ Epigastric Pain: Denies Facial Edema: None Fall Risk Assessment History of Falling: (0) No Secondary Diagnosis: (0) No Ambulatory Aid: (0) Bedrest/Nurse Assist IV Therapy: (20) Yes Gait: (0) Normal/Bedrest/Immobile Mental Status: (0) Oriented to Own Ability Fall Score: 20 Fall Risk Score Definition: No Risk: No action required Datetime: 08/23/2018 08:59 Labor Evaluation Frequency: q2-5 Monitor Mode: External Duration (sec)2399: 60 Quality: Mild Resting Tone [place]: Relaxed Heart Rate FHR Baseline Rate: 140 Monitor Mode: External US FHR Baseline Changes: No Baseline Change Variability: Moderate 6-25 bpm Accelerations: 15X15 Decelerations: None Category: Category I Datetime: 08/23/2018 08:03 Heart Rate FHR Baseline Rate: 140 Monitor Mode: External US FHR Baseline Changes: No Baseline Change Variability: Moderate 6-25 bpm Accelerations: 15X15 Decelerations: None Category: Category I Datetime: 08/23/2018 06:00 Labor Evaluation Frequency: occasional Monitor Mode: External Duration (sec)2399: 40-50 Quality: Mild Resting Tone [place]: Relaxed Heart Rate FHR Baseline Rate: 145 Monitor Mode: External US Variability: Moderate 6-25 bpm Accelerations: 15X15 Decelerations: None Category: Category I Pain Assessment Pain Scale: 3 Pain Presence: Intermittent Pain Type: Sharp; Ache Pain Location: Abdomen; Back; Right Flank Pain Goal: 3 Pain Relief Measures: Comfort Measures Pain Assessment Comments: rn at bedside with demerol but pt stated she will wait a ilittle longer t hat her pain is not that severe . Datetime: 08/23/2018 05:01 Stage of : Antepartum Maternal Assessment Level of Consciousness: Fully Conscious Headache: Denies Blurred Vision: No Temperature Route: Oral Pain Assessment Pain Scale: 4 Pain Presence: Intermittent Pain Type: Dull; Sharp; Ache Pain Location: Back; Right Flank Pain Goal: 3 Pain Relief Measures: Comfort Measures Datetime: 08/23/2018 05:00 Labor Evaluation Frequency: x1 Monitor Mode: External Duration (sec)2399: 60 Quality: Mild Resting Tone [place]: Relaxed Heart Rate FHR Baseline Rate: 150 Monitor Mode: External US Variability: Moderate 6-25 bpm Accelerations: 15X15 Decelerations: None Category: Category I Comments: loss of contact due to maternal movements. Datetime: 08/23/2018 04:00 Labor Evaluation Frequency: X2 Monitor Mode: External Duration (sec)2399: 40-50 Quality: Mild Resting Tone [place]: Relaxed Heart Rate FHR Baseline Rate: 140 Monitor Mode: External US Variability: Moderate 6-25 bpm Accelerations: 15X15 Decelerations: None Category: Category I Datetime: 08/23/2018 03:00 Labor Evaluation Frequency: OCCASIONAL Monitor Mode: External Duration (sec)2399: 40-50 Quality: Mild Resting Tone [place]: Relaxed Heart Rate FHR Baseline Rate: 140 Monitor Mode: External US Variability: Moderate 6-25 bpm Accelerations: 15X15 Decelerations: None Category: Category I Datetime: 08/23/2018 02:00 Labor Evaluation Frequency: irregular Monitor Mode: External Duration (sec)2399: 40-60 Quality: Mild Resting Tone [place]: Relaxed Heart Rate FHR Baseline Rate: 135 Monitor Mode: External US Variability: Moderate 6-25 bpm Accelerations: 15X15 Decelerations: None Category: Category I Pain Assessment Pain Scale: 3 Pain Presence: Intermittent Pain Type: Dull; Sharp; Pressure Pain Location: Back; Right Flank Pain Relief Measures: Comfort Measures Datetime: 08/23/2018 01:00 Labor Evaluation Frequency: irregular Monitor Mode: External Duration (sec)2399: 40-70 Quality: Mild Resting Tone [place]: Relaxed Heart Rate FHR Baseline Rate: 145 Monitor Mode: External US Variability: Moderate 6-25 bpm Accelerations: 15X15 Decelerations: None Category: Category I Datetime: 08/23/2018 00:00 Labor Evaluation Frequency: occasional Monitor Mode: External Duration (sec)2399: 40-60 Quality: Mild Resting Tone [place]: Relaxed Heart Rate FHR Baseline Rate: 140 Monitor Mode: External US Variability: Moderate 6-25 bpm Accelerations: 15X15 Decelerations: None Category: Category I Pain Assessment Pain Scale: 6 Pain Presence: Intermittent Pain Type: Sharp; Pressure; Ache Pain Location: Back; Right Flank Pain Relief Measures: Comfort Measures Pain Assessment Comments: will medicated pt in 30 minutes ,she voices understanding that next meds is not due yet. Datetime: 08/22/2018 23:00 Labor Evaluation Frequency: 0 Monitor Mode: External Duration (sec)2399: DENIES Resting Tone [place]: Relaxed Heart Rate FHR Baseline Rate: 145 Monitor Mode: External US Variability: Moderate 6-25 bpm Accelerations: 15X15 Decelerations: None Category: Category I Pain Presence: None/Denies Datetime: 08/22/2018 22:00 Labor Evaluation Frequency: X2 Monitor Mode: External Duration (sec)2399: 50-60 Quality: Mild Resting Tone [place]: Relaxed Heart Rate FHR Baseline Rate: 145 Monitor Mode: External US Variability: Moderate 6-25 bpm Accelerations: 15X15 Decelerations: None Category: Category I Pain Presence: None/Denies Datetime: 08/22/2018 21:00 Labor Evaluation Frequency: IRREGULAR Monitor Mode: External Duration (sec)2399: 40-50 Quality: Mild Resting Tone [place]: Relaxed Heart Rate FHR Baseline Rate: 145 Monitor Mode: External US Variability: Moderate 6-25 bpm Accelerations: 15X15 Decelerations: None Category: Category I Comments: LOSS OF CONTACT DUE TO MATERNAL MOVEMENTS. Pain Presence: None/Denies (Annotations: PT VERBALIZED PAIN RELIEF WITH PAIN MEDS.) Datetime: 08/22/2018 20:30 Vaginal Exam Dilatation (cms): 0.0 Effacement (%): 30 Station: -3 Exam By: smiranda Membrane Status: Intact Vaginal Bleeding: Normal Show Datetime: 08/22/2018 20:00 Labor Evaluation Frequency: OCCASIONAL Monitor Mode: External Duration (sec)2399: 40-50 Quality: Mild Resting Tone [place]: Relaxed Heart Rate FHR Baseline Rate: 135 Monitor Mode: External US Variability: Moderate 6-25 bpm Accelerations: 15X15 Decelerations: None Category: Category I Datetime: 08/22/2018 19:39 Stage of : Antepartum Assessment Type: Ongoing Assessment Maternal Assessment Level of Consciousness: Fully Conscious DTR's/Clonus: DTRs 2+; No Clonus Headache: Denies Blurred Vision: No Respiratory Effort: Unlabored; Regular Rhythm; Equal Expansion Breath Sounds, Left: Clear and Equal Breath Sounds, Right: Clear and Equal Nausea/Vomiting: Denies RUQ Epigastric Pain: Denies Lower Extremities Edema: None Degree: None Upper Extremities Edema: None Degree: None Facial Edema: None Temperature Route: Oral Fall Risk Assessment History of Falling: (0) No Secondary Diagnosis: (0) No Ambulatory Aid: (0) Bedrest/Nurse Assist IV Therapy: (0) No Gait: (0) Normal/Bedrest/Immobile Mental Status: (0) Oriented to Own Ability Fall Score: 0 Fall Risk Score Definition: No Risk: No action required Pain Presence: Intermittent Pain Type: Sharp; Contraction; Ache Pain Location: Abdomen; Back; Right Flank Pain Relief Measures: Comfort Measures (Annotations: WILL MEDICATED AT 2030) Datetime: 08/22/2018 19:00 Labor Evaluation Frequency: 4-5 Monitor Mode: External Duration (sec)2399: 60-80 Quality: Mild Pattern: Normal: <= 5 Contractions in 10 Minutes Resting Tone [place]: Relaxed Heart Rate FHR Baseline Rate: 135 Monitor Mode: External US Variability: Moderate 6-25 bpm Accelerations: 15X15 Decelerations: None Category: Category I Pain Assessment Pain Scale: 8 Pain Presence: Constant Pain Type: Stabbing Pain Location: Abdomen Pain Relief Measures: Pain Medication Given; Comfort Measures Datetime: 08/22/2018 18:00 Labor Evaluation Frequency: irreg Monitor Mode: External Duration (sec)2399: 60-70 Quality: Mild Pattern: Normal: <= 5 Contractions in 10 Minutes Resting Tone [place]: Relaxed Heart Rate FHR Baseline Rate: 135 Monitor Mode: External US Variability: Moderate 6-25 bpm Accelerations: 15X15 Decelerations: None Category: Category I Pain Assessment Pain Scale: 8 Pain Presence: Constant Pain Type: Stabbing Pain Location: Abdomen Pain Relief Measures: Pain Medication Given; Comfort Measures Datetime: 08/22/2018 17:44 Assessment Type: Admission Assessment Vaginal Bleeding: None Vaginal Discharge: Denies Recent Sexual Intercouse: Denies Maternal Assessment Level of Consciousness: Fully Conscious DTR's/Clonus: DTRs 2+ Headache: Denies Blurred Vision: No Respiratory Effort: Unlabored; Regular Rhythm; Equal Expansion Breath Sounds, Left: Clear and Equal Breath Sounds, Right: Clear and Equal Nausea/Vomiting: Denies RUQ Epigastric Pain: Denies Lower Extremities Edema: None Degree: None Upper Extremities Edema: None Degree: None Facial Edema: None Fall Risk Assessment History of Falling: (0) No Secondary Diagnosis: (0) No Ambulatory Aid: (0) Bedrest/Nurse Assist IV Therapy: (20) Yes Gait: (0) Normal/Bedrest/Immobile Mental Status: (0) Oriented to Own Ability Fall Score: 20 Fall Risk Score Definition: No Risk: No action required Pain Assessment Pain Scale: 8 Pain Presence: Chronic Pain Type: Stabbing Pain Location: Abdomen Membrane Status: Intact Datetime: 08/22/2018 17:41 Time of Arrival: 08/22/2018 17:38 EGA: 33.4 Arrived By: Ambulatory Arrived From: Other Unit in Hospital Datetime: 08/22/2018 16:17 Labor Evaluation Frequency: 0 Monitor Mode: External Pattern: Normal: <= 5 Contractions in 10 Minutes Resting Tone [place]: Relaxed Heart Rate FHR Baseline Rate: 140 Monitor Mode: External US Variability: Moderate 6-25 bpm Accelerations: 10X10 Decelerations: None Category: Category I Pain Assessment Pain Scale: 6 Pain Presence: Constant Pain Type: Burning Pain Location: Abdomen Pain Goal: 3 Pain Relief Measures: Comfort Measures Datetime: 08/22/2018 15:22 Stage of : OB Triage Datetime: 08/22/2018 15:14 Labor Evaluation Frequency: 0 Monitor Mode: External Pattern: Normal: <= 5 Contractions in 10 Minutes Resting Tone [place]: Relaxed Heart Rate FHR Baseline Rate: 145 Monitor Mode: External US Variability: Moderate 6-25 bpm Accelerations: None Decelerations: None Category: Category II Pain Assessment Pain Scale: 6 Pain Presence: Constant Pain Type: Burning Pain Location: Back Pain Goal: 3 Pain Relief Measures: Comfort Measures Datetime: 08/22/2018 15:11 Stage of : OB Triage Datetime: 08/22/2018 14:14 Stage of : OB Triage Datetime: 08/22/2018 14:08 Labor Evaluation Frequency: 0 Monitor Mode: External Pattern: Normal: <= 5 Contractions in 10 Minutes Resting Tone [place]: Relaxed Heart Rate FHR Baseline Rate: 145 Monitor Mode: External US Variability: Moderate 6-25 bpm Accelerations: None Decelerations: None Category: Category II Pain Assessment Pain Scale: 5 Pain Presence: Constant Pain Type: Ache Pain Location: Abdomen Pain Goal: 3 Pain Relief Measures: Comfort Measures Datetime: 08/22/2018 13:08 Labor Evaluation Frequency: 0 Monitor Mode: External Pattern: Normal: <= 5 Contractions in 10 Minutes Resting Tone [place]: Relaxed Heart Rate FHR Baseline Rate: 135 Monitor Mode: External US Variability: Moderate 6-25 bpm Accelerations: 10X10 Decelerations: None Category: Category I Pain Assessment Pain Scale: 4 Pain Presence: Constant Pain Type: Ache Pain Location: Abdomen Pain Goal: 3 Pain Relief Measures: Comfort Measures Datetime: 08/22/2018 12:12 Labor Evaluation Frequency: 0 Monitor Mode: External Pattern: Normal: <= 5 Contractions in 10 Minutes Resting Tone [place]: Relaxed Heart Rate FHR Baseline Rate: 135 Monitor Mode: External US Variability: Moderate 6-25 bpm Accelerations: 10X10 Decelerations: None Category: Category I Pain Assessment Pain Scale: 5 Pain Presence: Intermittent Pain Type: Cramping Pain Location: Perineum Pain Goal: 3 Pain Relief Measures: Comfort Measures Datetime: 08/22/2018 11:24 Labor Evaluation Frequency: irreg Monitor Mode: External Duration (sec)2399: 50-70 Pattern: Normal: <= 5 Contractions in 10 Minutes Resting Tone [place]: Relaxed Heart Rate FHR Baseline Rate: 140 Monitor Mode: External US Variability: Moderate 6-25 bpm Accelerations: 10X10 Decelerations: None Category: Category I Pain Assessment Pain Scale: 5 Pain Presence: Intermittent Pain Type: Cramping Pain Location: Abdomen Pain Goal: 3 Pain Relief Measures: Comfort Measures Datetime: 08/22/2018 10:25 Labor Evaluation Frequency: 7-8 Monitor Mode: External Duration (sec)2399: 50-70 Pattern: Normal: <= 5 Contractions in 10 Minutes Resting Tone [place]: Relaxed Heart Rate FHR Baseline Rate: 145 Monitor Mode: External US Variability: Moderate 6-25 bpm Accelerations: 10X10 Decelerations: None Category: Category I Pain Assessment Pain Scale: 5 Pain Presence: Intermittent Pain Type: Cramping Pain Location: Abdomen Pain Goal: 3 Pain Relief Measures: Comfort Measures Datetime: 08/22/2018 09:50 Stage of : OB Triage Datetime: 08/22/2018 09:47 Stage of : OB Triage Datetime: 08/22/2018 09:25 Stage of : OB Triage Assessment Type: Triage Maternal Assessment Level of Consciousness: Fully Conscious DTR's/Clonus: DTRs 2+; No Clonus Headache: Denies Blurred Vision: No Respiratory Effort: Unlabored; Regular Rhythm; Equal Expansion Breath Sounds, Left: Clear and Equal Breath Sounds, Right: Clear and Equal Nausea/Vomiting: Denies RUQ Epigastric Pain: Denies Facial Edema: None Temperature Route: Axillary Fall Risk Assessment History of Falling: (0) No Secondary Diagnosis: (0) No Ambulatory Aid: (0) Bedrest/Nurse Assist IV Therapy: (0) No Gait: (0) Normal/Bedrest/Immobile Mental Status: (0) Oriented to Own Ability Fall Score: 0 Fall Risk Score Definition: No Risk: No action required Labor Evaluation Frequency: 3-5 Monitor Mode: External Duration (sec)2399: 20-40 Quality: Mild Pattern: Normal: <= 5 Contractions in 10 Minutes Resting Tone [place]: Relaxed Heart Rate FHR Baseline Rate: 135 Monitor Mode: External US Variability: Moderate 6-25 bpm Accelerations: 10X10 Decelerations: None Category: Category I Pain Assessment Pain Scale: 6 Pain Presence: Intermittent Pain Type: Cramping Pain Location: Abdomen Pain Goal: 3 Pain Relief Measures: Comfort Measures Datetime: 08/22/2018 09:24 Time of Arrival: 08/22/2018 08:57 EGA: 33.4 Arrived By: Ambulatory Chief Complaint: C/O ABDOMINAL STRETCHING/PAIN, DENIES LEAKING OR BLEEDING Movement: Present Contractions: Denies/Absent Rupture of Membranes: Ruptured Vaginal Bleeding: None Vaginal Discharge: Denies Recent Sexual Intercouse: Denies Abdominal Trauma: Not Applicable Patient Complaints: Cramping Initial Plan: MONITOR, Datetime: 07/21/2018 13:45 Stage of : Antepartum Datetime: 07/21/2018 12:15 Stage of : Antepartum Datetime: 07/21/2018 12:12 Stage of : Antepartum Datetime: 07/21/2018 12:11 Stage of : Antepartum Temperature Route: Oral Datetime: 07/21/2018 12:06 Stage of : Antepartum Datetime: 07/21/2018 12:00 Stage of : Antepartum Datetime: 07/21/2018 10:23 Stage of : Antepartum Temperature Route: Oral Pain Assessment Pain Scale: 0 Pain Presence: None/Denies Pain Type: N/A Datetime: 07/21/2018 09:04 Labor Evaluation Frequency: x1 Monitor Mode: External Duration (sec)2399: 40 Quality: Mild Pattern: Normal: <= 5 Contractions in 10 Minutes Resting Tone [place]: Relaxed Heart Rate FHR Baseline Rate: 135 Monitor Mode: External US FHR Baseline Changes: No Baseline Change Variability: Moderate 6-25 bpm Accelerations: 15X15 Decelerations: Variable Category: Category II Pain Assessment Pain Scale: 0 Pain Presence: None/Denies Pain Type: N/A Datetime: 07/21/2018 08:45 Stage of : Antepartum Datetime: 07/21/2018 08:14 Assessment Type: Ongoing Assessment Maternal Assessment Level of Consciousness: Fully Conscious DTR's/Clonus: DTRs 2+; No Clonus Headache: Denies Blurred Vision: No Respiratory Effort: Unlabored; Regular Rhythm; Equal Expansion Breath Sounds, Left: Clear and Equal Breath Sounds, Right: Clear and Equal Nausea/Vomiting: Denies RUQ Epigastric Pain: Denies Lower Extremities Edema: None Degree: None Upper Extremities Edema: None Degree: None Facial Edema: None Fall Risk Assessment History of Falling: (0) No Secondary Diagnosis: (0) No Ambulatory Aid: (0) Bedrest/Nurse Assist IV Therapy: (20) Yes Gait: (0) Normal/Bedrest/Immobile Mental Status: (0) Oriented to Own Ability Fall Score: 20 Fall Risk Score Definition: No Risk: No action required Monitor Mode: External Monitor Mode: External US Comments: NST started Datetime: 07/21/2018 07:45 Stage of : Antepartum Datetime: 07/21/2018 07:19 Stage of : Antepartum Datetime: 07/21/2018 04:23 Stage of : Antepartum Temperature Route: Oral Pain Assessment Pain Scale: 0 Pain Presence: None/Denies Pain Goal: 0 Datetime: 07/21/2018 00:01 Stage of : Antepartum Temperature Route: Oral Pain Assessment Pain Scale: 0 Pain Presence: None/Denies Pain Goal: 0 Datetime: 07/20/2018 21:07 Labor Evaluation Frequency: x1 Monitor Mode: External Duration (sec)2399: 50 Quality: Mild Resting Tone [place]: Relaxed Contraction Comments: pt without complaint of uc pain. Heart Rate FHR Baseline Rate: 140 Monitor Mode: External US FHR Baseline Changes: Bradycardia Variability: Moderate 6-25 bpm Accelerations: 15X15 Decelerations: Variable Category: Category II Comments: FHR reactive and reassuring; appropriate for GA. +FM noted. EFM off. Pain Assessment Pain Scale: 0 Pain Presence: None/Denies Datetime: 07/20/2018 20:18 Assessment Type: Ongoing Assessment Maternal Assessment Level of Consciousness: Fully Conscious DTR's/Clonus: DTRs 2+; No Clonus Headache: Denies Blurred Vision: No Respiratory Effort: Unlabored; Regular Rhythm; Equal Expansion Breath Sounds, Left: Clear and Equal Breath Sounds, Right: Clear and Equal Nausea/Vomiting: Denies RUQ Epigastric Pain: Denies Lower Extremities Edema: None Degree: None Upper Extremities Edema: None Degree: None Facial Edema: None Fall Risk Assessment History of Falling: (0) No Secondary Diagnosis: (0) No Ambulatory Aid: (0) Bedrest/Nurse Assist IV Therapy: (20) Yes Gait: (0) Normal/Bedrest/Immobile Mental Status: (0) Oriented to Own Ability Fall Score: 20 Fall Risk Score Definition: No Risk: No action required Datetime: 07/20/2018 20:16 Stage of : Antepartum Temperature Route: Oral Comments: EFM on. +FM noted. Pain Assessment Pain Scale: 0 Pain Presence: None/Denies Pain Goal: 0 Datetime: 07/20/2018 16:53 Pain Presence: None/Denies Datetime: 07/20/2018 13:08 Pain Presence: None/Denies Datetime: 07/20/2018 12:16 Pain Presence: None/Denies Datetime: 07/20/2018 08:28 Labor Evaluation Frequency: 0 Monitor Mode: External Resting Tone [place]: Relaxed Heart Rate FHR Baseline Rate: 135 Monitor Mode: External US FHR Baseline Changes: No Baseline Change Variability: Moderate 6-25 bpm Accelerations: 15X15 Decelerations: None Category: Category I Pain Presence: None/Denies Datetime: 07/20/2018 07:58 Assessment Type: Ongoing Assessment Maternal Assessment Level of Consciousness: Fully Conscious DTR's/Clonus: DTRs 2+; No Clonus Headache: Denies Blurred Vision: No Respiratory Effort: Unlabored; Regular Rhythm; Equal Expansion Breath Sounds, Left: Clear and Equal Breath Sounds, Right: Clear and Equal Nausea/Vomiting: Denies RUQ Epigastric Pain: Denies Facial Edema: None Fall Risk Assessment History of Falling: (0) No Secondary Diagnosis: (0) No Ambulatory Aid: (0) Bedrest/Nurse Assist IV Therapy: (20) Yes Gait: (0) Normal/Bedrest/Immobile Mental Status: (0) Oriented to Own Ability Fall Score: 20 Fall Risk Score Definition: No Risk: No action required Datetime: 07/20/2018 07:57 Comments: start nst Datetime: 07/20/2018 07:54 Labor Evaluation Frequency: 0 Monitor Mode: External Resting Tone [place]: Relaxed Datetime: 07/20/2018 06:27 Pain Presence: None/Denies Datetime: 07/20/2018 06:10 Stage of : Antepartum Maternal Assessment Level of Consciousness: Fully Conscious Headache: Denies Blurred Vision: No Temperature Route: Oral Labor Evaluation Frequency: X1 Monitor Mode: External Duration (sec)2399: 60 Quality: Mild Resting Tone [place]: Relaxed Pain Presence: None/Denies Datetime: 07/20/2018 05:00 Labor Evaluation Frequency: 0 Monitor Mode: External Resting Tone [place]: Relaxed Datetime: 07/20/2018 04:00 Labor Evaluation Frequency: 0 Monitor Mode: External Resting Tone [place]: Relaxed Datetime: 07/20/2018 03:00 Labor Evaluation Frequency: 0 Monitor Mode: External Resting Tone [place]: Relaxed Datetime: 07/20/2018 02:00 Labor Evaluation Frequency: 0 Monitor Mode: External Resting Tone [place]: Relaxed Datetime: 07/20/2018 01:00 Labor Evaluation Frequency: 0 Monitor Mode: External Resting Tone [place]: Relaxed Datetime: 07/20/2018 00:00 Labor Evaluation Frequency: 0 Monitor Mode: External Duration (sec)2399: denies Resting Tone [place]: Relaxed Datetime: 07/19/2018 23:46 Stage of : Antepartum Datetime: 07/19/2018 23:00 Labor Evaluation Frequency: 0 Monitor Mode: External Resting Tone [place]: Relaxed Pain Assessment Pain Scale: 3 Pain Presence: Intermittent Pain Type: Dull; Ache Pain Location: Back Pain Goal: 3 Pain Relief Measures: Comfort Measures Pain Assessment Comments: pt stated the pain is present only when she moves or get up to go br. Datetime: 07/19/2018 22:10 Labor Evaluation Frequency: 0 Monitor Mode: External Duration (sec)2399: DENIES Resting Tone [place]: Relaxed Heart Rate FHR Baseline Rate: 155 Monitor Mode: External US Variability: Moderate 6-25 bpm Accelerations: 15X15 Decelerations: None Category: Category I Comments: NST DONE. Datetime: 07/19/2018 21:23 Monitor Mode: External US Comments: PLACED NST STARTED. Datetime: 07/19/2018 21:00 Labor Evaluation Frequency: 0 Duration (sec)2399: DENIES Datetime: 07/19/2018 20:06 Stage of : Antepartum Assessment Type: Ongoing Assessment Maternal Assessment Level of Consciousness: Fully Conscious DTR's/Clonus: DTRs 2+; No Clonus Headache: Denies Blurred Vision: No Respiratory Effort: Unlabored; Regular Rhythm; Equal Expansion Breath Sounds, Left: Clear and Equal Breath Sounds, Right: Clear and Equal Nausea/Vomiting: Denies RUQ Epigastric Pain: Denies Lower Extremities Edema: None Degree: None Upper Extremities Edema: None Degree: None Facial Edema: None Temperature Route: Oral Fall Risk Assessment History of Falling: (0) No Secondary Diagnosis: (0) No Ambulatory Aid: (0) Bedrest/Nurse Assist IV Therapy: (0) No Gait: (0) Normal/Bedrest/Immobile Mental Status: (0) Oriented to Own Ability Fall Score: 0 Fall Risk Score Definition: No Risk: No action required Pain Assessment Pain Scale: 5 Pain Presence: Intermittent (Annotations: PT DENIES NV, AT THIS TIME.) Pain Type: Ache Pain Location: Abdomen; Back Pain Goal: 3 Pain Relief Measures: Comfort Measures (Annotations: PT DECLINES THE NEED FOR PAIN MEDS AT THIS MYESHA E,POC DISCUSSED AND EXPLAINED AT BEDSIDE PT VOICES UNDERSTANDING.) Datetime: 07/19/2018 20:00 Labor Evaluation Frequency: 0 Monitor Mode: External Duration (sec)2399: DENIES Resting Tone [place]: Relaxed Datetime: 07/19/2018 19:00 Stage of : Antepartum Labor Evaluation Frequency: 0 Monitor Mode: External Resting Tone [place]: Relaxed Pain Assessment Pain Scale: 5 Pain Presence: Intermittent Pain Type: Ache Pain Location: Abdomen Pain Relief Measures: Comfort Measures Datetime: 07/19/2018 18:55 Stage of : Antepartum Datetime: 07/19/2018 18:00 Stage of : Antepartum Labor Evaluation Frequency: 0 Monitor Mode: External Resting Tone [place]: Relaxed Pain Assessment Pain Scale: 5 Pain Presence: Intermittent Pain Type: Ache Pain Location: Abdomen Pain Relief Measures: Comfort Measures Datetime: 07/19/2018 17:00 Stage of : Antepartum Labor Evaluation Frequency: 0 Monitor Mode: External Resting Tone [place]: Relaxed Pain Assessment Pain Scale: 5 Pain Presence: Intermittent Pain Type: Ache Pain Location: Abdomen Pain Relief Measures: Comfort Measures Datetime: 07/19/2018 16:02 Stage of : Antepartum Temperature Route: Oral Labor Evaluation Frequency: 0 Monitor Mode: External Resting Tone [place]: Relaxed Pain Assessment Pain Scale: 5 Pain Presence: Constant Pain Type: Ache Pain Location: Abdomen Pain Relief Measures: Comfort Measures Datetime: 07/19/2018 15:00 Stage of : Antepartum Labor Evaluation Frequency: 0 Monitor Mode: External Resting Tone [place]: Relaxed Pain Presence: Constant Pain Type: Ache Pain Location: Abdomen Pain Relief Measures: Comfort Measures Datetime: 07/19/2018 14:00 Monitor Mode: External Resting Tone [place]: Relaxed Pain Presence: Constant Pain Type: Ache Pain Location: Abdomen Pain Relief Measures: Comfort Measures Datetime: 07/19/2018 13:00 Monitor Mode: External Resting Tone [place]: Relaxed Pain Presence: Constant Pain Type: Ache Pain Location: Abdomen Pain Relief Measures: Comfort Measures Datetime: 07/19/2018 12:15 Stage of : Antepartum Temperature Route: Oral Datetime: 07/19/2018 12:00 Monitor Mode: External Resting Tone [place]: Relaxed Pain Presence: Constant Pain Type: Ache Pain Location: Abdomen Pain Relief Measures: Comfort Measures Datetime: 07/19/2018 11:00 Stage of : Antepartum Labor Evaluation Frequency: 0 Monitor Mode: External Duration (sec)2399: 0 Resting Tone [place]: Relaxed Pain Assessment Pain Scale: 0 Pain Presence: None/Denies Pain Type: N/A Datetime: 07/19/2018 10:00 Labor Evaluation Frequency: 0 Monitor Mode: External Duration (sec)2399: 0 Resting Tone [place]: Relaxed Datetime: 07/19/2018 09:00 Stage of : Antepartum Labor Evaluation Frequency: x1 Monitor Mode: External Duration (sec)2399: 50 Quality: Mild Resting Tone [place]: Relaxed Heart Rate FHR Baseline Rate: 140 Monitor Mode: External US FHR Baseline Changes: No Baseline Change Variability: Moderate 6-25 bpm Accelerations: 15X15 Decelerations: None Datetime: 07/19/2018 08:10 Stage of : Antepartum Datetime: 07/19/2018 08:00 Stage of : Antepartum Labor Evaluation Frequency: x1 Monitor Mode: External Duration (sec)2399: 50 Quality: Mild Resting Tone [place]: Relaxed Heart Rate FHR Baseline Rate: 140 Monitor Mode: External US FHR Baseline Changes: No Baseline Change Variability: Moderate 6-25 bpm Accelerations: 15X15 Decelerations: None Datetime: 07/19/2018 07:40 Assessment Type: Ongoing Assessment Maternal Assessment Level of Consciousness: Fully Conscious DTR's/Clonus: DTRs 2+; No Clonus Headache: Denies Blurred Vision: No Respiratory Effort: Unlabored; Regular Rhythm; Equal Expansion Breath Sounds, Left: Clear and Equal Breath Sounds, Right: Clear and Equal Nausea/Vomiting: Denies RUQ Epigastric Pain: Denies Lower Extremities Edema: None Degree: None Upper Extremities Edema: None Degree: None Facial Edema: None Fall Risk Assessment History of Falling: (0) No Secondary Diagnosis: (0) No Ambulatory Aid: (0) Bedrest/Nurse Assist IV Therapy: (0) No Gait: (0) Normal/Bedrest/Immobile Mental Status: (0) Oriented to Own Ability Fall Score: 0 Fall Risk Score Definition: No Risk: No action required Datetime: 07/19/2018 07:39 Monitor Mode: External US Comments: NST started Datetime: 07/19/2018 07:37 Stage of : Antepartum Temperature Route: Oral Pain Presence: Constant Pain Type: Ache Pain Location: Abdomen Pain Goal: 3 Pain Relief Measures: Comfort Measures Datetime: 07/19/2018 07:25 Stage of : Antepartum Datetime: 07/19/2018 07:00 Labor Evaluation Frequency: NONE Monitor Mode: External Resting Tone [place]: Relaxed Heart Rate FHR Baseline Rate: 140 Variability: Moderate 6-25 bpm Accelerations: 15X15 Decelerations: None Category: Category I Datetime: 07/19/2018 06:55 Stage of : Antepartum Datetime: 07/19/2018 06:32 Monitor Mode: External US Comments: APPLIED BECAUSE PT STATED SHE DID NOT FEEL HER BABY MOVE AND SHE WAS WORRIED. Datetime: 07/19/2018 06:00 Labor Evaluation Frequency: NONE Monitor Mode: External Resting Tone [place]: Relaxed Datetime: 07/19/2018 05:00 Labor Evaluation Frequency: NONE Monitor Mode: External Resting Tone [place]: Relaxed Datetime: 07/19/2018 04:54 Stage of : Antepartum Temperature Route: Oral Pain Assessment Pain Scale: 4 (Annotations: ONLY WHEN PT COUGHS OR TAKES A DEEP BREATH) Pain Presence: Intermittent Pain Type: Dull; Ache Pain Location: Abdomen (Annotations: UPPER) Pain Goal: 3 Pain Relief Measures: Comfort Measures Datetime: 07/19/2018 04:05 Stage of : Antepartum Datetime: 07/19/2018 04:04 Stage of : Antepartum Temperature Route: Oral Datetime: 07/19/2018 04:00 Labor Evaluation Frequency: NONE Monitor Mode: External Resting Tone [place]: Relaxed Datetime: 07/19/2018 03:00 Labor Evaluation Frequency: NONE Monitor Mode: External Resting Tone [place]: Relaxed Pain Presence: None/Denies Pain Type: N/A Pain Assessment Comments: PT SLEEPING WITH EVEN UNLABORED BREATHING Datetime: 07/19/2018 02:14 Stage of : Antepartum Pain Assessment Pain Scale: 10 Pain Presence: Constant Pain Type: Sharp Pain Location: Abdomen (Annotations: UPPER) Pain Goal: 3 Pain Relief Measures: Pain Medication Given Datetime: 07/19/2018 02:00 Labor Evaluation Frequency: NONE Monitor Mode: External Resting Tone [place]: Relaxed Datetime: 07/19/2018 01:35 Stage of : Antepartum Datetime: 07/19/2018 01:00 Labor Evaluation Frequency: NONE Monitor Mode: External Resting Tone [place]: Relaxed Pain Presence: Intermittent Pain Type: N/A Pain Assessment Comments: PT SLEEPING BUT EASILY AROUSED Datetime: 07/19/2018 00:28 Stage of : Antepartum Temperature Route: Oral Pain Assessment Pain Scale: 3 Pain Presence: Chronic Pain Type: Dull Pain Location: Abdomen Pain Goal: 3 Pain Relief Measures: Comfort Measures Datetime: 07/19/2018 00:00 Labor Evaluation Frequency: NONE Monitor Mode: External Resting Tone [place]: Relaxed Pain Assessment Pain Scale: 3 Pain Presence: Chronic Pain Type: Dull Pain Location: Abdomen Pain Goal: 2 Datetime: 07/18/2018 23:00 Labor Evaluation Frequency: NONE Monitor Mode: External Resting Tone [place]: Relaxed Pain Presence: None/Denies Pain Type: N/A Pain Assessment Comments: PT SLEEPING WITH EVEN UNLABORED BREATHING Datetime: 07/18/2018 21:46 Labor Evaluation Frequency: NONE Monitor Mode: External Resting Tone [place]: Relaxed Heart Rate FHR Baseline Rate: 140 Monitor Mode: External US Variability: Moderate 6-25 bpm Accelerations: 10X10 Decelerations: None Category: Category I Comments: AGA Pain Assessment Pain Scale: 6 Pain Presence: Constant Pain Type: Sharp Pain Location: Abdomen; Back Pain Goal: 3 Datetime: 07/18/2018 20:52 Monitor Mode: External Contraction Comments: reapplied after shower Monitor Mode: External US Comments: reapplied after shower Datetime: 07/18/2018 20:43 Pain Assessment Pain Scale: 9 Pain Presence: Constant Pain Type: Sharp Pain Location: Abdomen; Back Pain Goal: 3 Pain Relief Measures: Pain Medication Given Datetime: 07/18/2018 19:48 Labor Evaluation Frequency: NONE Monitor Mode: External Resting Tone [place]: Relaxed Contraction Comments: REMOVED FOR SHOWER Heart Rate FHR Baseline Rate: 140 Monitor Mode: External US Comments: LOC DUE TO PT MOVING AROUND TO TRY TO GET COMFORTABLE Comments: REMOVED FOR SHOWER Pain Assessment Pain Scale: 7 Pain Presence: Constant Pain Type: Sharp Pain Location: Abdomen; Back Pain Goal: 3 Pain Relief Measures: Comfort Measures Pain Assessment Comments: PT WANTS A SHOWER BEFORE SHE GETS HER PAIN MEDICATION Datetime: 07/18/2018 19:35 Assessment Type: Ongoing Assessment Maternal Assessment Level of Consciousness: Fully Conscious DTR's/Clonus: DTRs 2+; No Clonus Headache: Denies Blurred Vision: No Respiratory Effort: Unlabored; Regular Rhythm; Equal Expansion Breath Sounds, Left: Clear and Equal Breath Sounds, Right: Clear and Equal Nausea/Vomiting: Denies RUQ Epigastric Pain: Denies Lower Extremities Edema: None Degree: None Upper Extremities Edema: None Degree: None Facial Edema: None Temperature Route: Oral Fall Risk Assessment History of Falling: (0) No Secondary Diagnosis: (0) No Ambulatory Aid: (0) Bedrest/Nurse Assist IV Therapy: (0) No Gait: (0) Normal/Bedrest/Immobile Mental Status: (0) Oriented to Own Ability Fall Score: 0 Fall Risk Score Definition: No Risk: No action required Monitor Mode: External Contraction Comments: PT DENIES CRAMPING Monitor Mode: External US Comments: PT STATES + FM Pain Assessment Pain Scale: 7 Pain Presence: Constant Pain Type: Sharp Pain Location: Abdomen; Back Pain Goal: 3 Pain Relief Measures: Comfort Measures Membrane Status: Intact Vaginal Bleeding: None Datetime: 07/18/2018 16:06 Pain Assessment Pain Scale: 8 Pain Goal: 2 Datetime: 07/18/2018 15:07 Contraction Comments: pt denies feeling contractions or cramping Datetime: 07/18/2018 14:59 Nausea/Vomiting: Present Datetime: 07/18/2018 14:23 Labor Evaluation Frequency: occasional with irritability Monitor Mode: External Quality: Mild Resting Tone [place]: Relaxed Datetime: 07/18/2018 14:03 Maternal Assessment Level of Consciousness: Fully Conscious Headache: Denies Blurred Vision: No Respiratory Effort: Unlabored Breath Sounds, Left: Clear and Equal Breath Sounds, Right: Clear and Equal Nausea/Vomiting: Denies Facial Edema: None Datetime: 07/18/2018 14:01 Pain Relief Measures: Comfort Measures Pain Assessment Comments: ice packs to affected areas for comfort Datetime: 07/18/2018 13:45 Pain Relief Measures: Comfort Measures Pain Assessment Comments: pillows to affected area Datetime: 07/18/2018 13:41 Pain Assessment Pain Scale: 8 Pain Goal: 2 Pain Assessment Comments: lower back right and left in low waist area Datetime: 07/18/2018 12:47 Labor Evaluation Frequency: 0 Monitor Mode: External Datetime: 07/18/2018 12:45 Stage of : Antepartum Temperature Route: Oral Pain Presence: None/Denies Pain Location: Abdomen; Other (Annotations: EPIGASTRIC PAIN) Pain Goal: 2 Pain Relief Measures: Pain Medication Given Datetime: 07/18/2018 12:42 Stage of : Antepartum Datetime: 07/18/2018 12:30 Labor Evaluation Frequency: x3 Duration (sec)2399: 50-60 Datetime: 07/18/2018 11:30 Labor Evaluation Frequency: occas Monitor Mode: External Duration (sec)2399: 50-70 Quality: Mild Pattern: Normal: <= 5 Contractions in 10 Minutes Resting Tone [place]: Relaxed Datetime: 07/18/2018 10:23 Labor Evaluation Frequency: X1 Monitor Mode: External Datetime: 07/18/2018 08:43 Labor Evaluation Frequency: X2 Monitor Mode: External Datetime: 07/18/2018 07:50 Labor Evaluation Frequency: 0 Monitor Mode: External Pattern: Normal: <= 5 Contractions in 10 Minutes Resting Tone [place]: Relaxed Heart Rate FHR Baseline Rate: 130 Monitor Mode: External US FHR Baseline Changes: No Baseline Change Variability: Moderate 6-25 bpm Accelerations: 10X10 Decelerations: None Category: Category I Datetime: 07/18/2018 07:41 Fall Score: 20 Fall Risk Score Definition: No Risk: No action required Datetime: 07/18/2018 01:15 EGA: 28.4 Fall Score: 0 Fall Risk Score Definition: No Risk: No action required Datetime: 07/04/2018 19:20 Fall Score: 0 Fall Risk Score Definition: No Risk: No action required Datetime: 07/04/2018 10:15 Fall Score: 0 Fall Risk Score Definition: No Risk: No action required Datetime: 07/03/2018 20:07 Fall Score: 0 Fall Risk Score Definition: No Risk: No action required Datetime: 07/03/2018 07:30 Fall Score: 20 Fall Risk Score Definition: No Risk: No action required Datetime: 07/02/2018 19:30 Fall Score: 20 Fall Risk Score Definition: No Risk: No action required Datetime: 07/02/2018 15:16 Fall Score: 0 Fall Risk Score Definition: No Risk: No action required Datetime: 07/02/2018 15:14 EGA: 26.2 Datetime: 06/17/2018 19:40 Fall Score: 0 Fall Risk Score Definition: No Risk: No action required Datetime: 06/17/2018 13:50 EGA: 24.1
--- NOTE | 2018-09-20 15:28 | PN ---
Triage Information Date/Time late entry for service rendered on 09/19/18 late night Reason for visit: SROM Weeks of Gestation 37w4d /Para Diabetes: none Hypertention: none Objective Vital Signs Date Temp Pulse Resp B/P (MAP) Pulse Ox O2 O2 Flow FiO2 Time Delivery Rate 09/19/18 98.2 69 19 119/64 Room Air 21:07 (82) Heart Rate: 140's Heart Rate Comments CAT I tracing Contractions: None Exam ROM plus neg Results/Medications Results 24 hrs Laboratory Tests Test 09/19/18 21:25 Urine Color YELLOW Urine Clarity CLEAR Urine pH 7.0 Urine Specific [place] 1.015 Urine Ketones NEGATIVE Urine Nitrite NEGATIVE Urine Bilirubin NEGATIVE Urine Urobilinogen 1+ H Urine Leukocyte Esterase NEGATIVE Urine Hemoglobin NEGATIVE Urine Glucose NEGATIVE Urine Total Protein NEGATIVE Membranes Rupture NEGATIVE Imaging Results BPP 8 ADRIANNA 15.3 Disposition: Discharge Assessment/Plan A IUP 37w4d no SROM P discharge home with her OB on sun appointment RTH prn with routine laboe instructions LUIS MIGUEL MUNOZ MD Sep 20, 2018 15:28
== END 2018-09-20 00:15 | disposition home or self-care (01) ==
LOC: OBT 20:55 → L-D 20:56 → OBT 09-20 00:15
PROVIDERS: ATTEND Obstetrics & Gynecology
DX: O42.913 Preterm premature rupture of membranes, unspecified as to length of time between rupture and onset of labor, third trimester (principal); Z3A.37 37 weeks gestation of pregnancy
CPT/HCPCS: 76818; 81003; 84112; Z7500; G0463

== ENCOUNTER 2018-10-07 16:53 | Inpatient (IN) | payer OTHER ==
[~2018-10-07] VITALS: Ht 162.6 cm; Wt 88.1 kg
[2018-10-07 17:13] VITALS: Ht 162.6 cm; Wt 88.1 kg
--- NOTE | 2018-10-07 19:47 | HP ---
Date/Time of Note Date/Time of Note DATE: 10/07/18 TIME: 19:45 OB - History Hx of Present Chief Complaint: post date Estimated Due Date: Oct 06, 2018 : 1 Para: 0 Spontaneous : 0 Therapeutic : 0 Care: Good Care Ultrasounds: Normal mid trimester US Obstetrical Complications: None Medical Complications: None Past Family/Social History * Past Medical, Surgical, Family and Obstetric Histories reviewed from chart. OB Admission Exam Physical Exam Cervical Dilatation: 1cm Effacement: 75% Station: -2 Membranes: Intact Heart Rate: 120's Accelerations: Accelerations Present Decelerations: No Decelerations Varibility: Moderate OB Assessment/Plan Reason for admission: other Other Assessment: post date Plan: Induction Induction Method: per Misoprostol Protocol MIMA ROLDAN MD Oct 07, 2018 19:47
[2018-10-07] MEDS ORDERED: MISOPROSTOL 200 MCG TAB PR PRN (20:00)
[2018-10-07] MEDS ORDERED: BUTORPHANOL 2 MG INJ IV PRN ×2 (20:00)
[2018-10-07] MEDS ORDERED: CARBOPROST 250 MCG INJ IM PRN (20:00)
[2018-10-07] MEDS ORDERED: LIDOCAINE 1% (MPF) 30 ML INJ INJ PRN (20:00)
[2018-10-07] MEDS ORDERED: IBUPROFEN 600 MG TAB PO PRN (20:00)
[2018-10-07] MEDS ORDERED: OXYTOCIN 30 UNITS/LR 500 ML IV SCH ×2 (20:00)
[2018-10-07] MEDS ORDERED: METHYLERGONOVINE 0.2 MG INJ IM PRN (20:00)
[2018-10-07] MEDS ORDERED: OXYTOCIN 30 UNITS/LR 500 ML IV PRN (20:00)
--- NOTE | 2018-10-07 20:52 | TRIAGE ---
OB Triage Datetime Report Generated by CPN: 10/07/2018 20:52 Datetime: 10/07/2018 19:30 Stage of : OB Triage Labor Evaluation Frequency: occas Monitor Mode: External Quality: Mild Pattern: Normal: <= 5 Contractions in 10 Minutes Resting Tone [place]: Relaxed Heart Rate FHR Baseline Rate: 145 Monitor Mode: External US FHR Baseline Changes: No Baseline Change Variability: Moderate 6-25 bpm Accelerations: 15X15 Decelerations: None Category: Category I Pain Assessment Pain Scale: 0 Pain Presence: None/Denies Pain Type: N/A Vaginal Exam Dilatation (cms): 1.5 Effacement (%): 75 Station: -2 Exam By: Sterling Membrane Status: Intact Amniotic Fluid Amount: None Amniotic Fluid Odor: None Vaginal Bleeding: None Cervix, Consistency: Soft Cervix, Position: Posterior Presentation 'A': Cephalic Datetime: 10/07/2018 19:00 Maternal Assessment Level of Consciousness: Keenly Alert, Responsive DTR's/Clonus: DTRs 1+ Headache: Denies Blurred Vision: No Nausea/Vomiting: Denies RUQ Epigastric Pain: Denies Facial Edema: None Labor Evaluation Frequency: OCC Monitor Mode: External Duration (sec)2399: 40-70 Quality: Mild Pattern: Normal: <= 5 Contractions in 10 Minutes Resting Tone [place]: Relaxed Heart Rate FHR Baseline Rate: 150 Monitor Mode: External US Variability: Moderate 6-25 bpm Accelerations: 15X15 Decelerations: None Category: Category I Pain Assessment Pain Scale: 0 Pain Presence: None/Denies Pain Type: N/A Pain Goal: 3 Membrane Status: Intact Datetime: 10/07/2018 18:00 Stage of : OB Triage Maternal Assessment Level of Consciousness: Keenly Alert, Responsive DTR's/Clonus: DTRs 1+ Headache: Denies Nausea/Vomiting: Denies RUQ Epigastric Pain: Denies Labor Evaluation Frequency: X2 Monitor Mode: External Duration (sec)2399: 50-90 Quality: Mild Resting Tone [place]: Relaxed Heart Rate FHR Baseline Rate: 135 Monitor Mode: External US Variability: Moderate 6-25 bpm Accelerations: 15X15 Decelerations: None Category: Category I Pain Assessment Pain Scale: 0 Pain Presence: None/Denies Pain Type: N/A Pain Goal: 3 Membrane Status: Intact Datetime: 10/07/2018 17:42 Stage of : OB Triage Maternal Assessment Level of Consciousness: Keen[place] Alert, Responsive DTR's/Clonus: DTRs 1+ Headache: Denies Blurred Vision: No Nausea/Vomiting: Denies RUQ Epigastric Pain: Denies Facial Edema: None Labor Evaluation Frequency: NONE Monitor Mode: External Resting Tone [place]: Relaxed Heart Rate FHR Baseline Rate: 135 Monitor Mode: External US Variability: Moderate 6-25 bpm Accelerations: 15X15 Decelerations: None Category: Category I Pain Assessment Pain Scale: 0 Pain Presence: None/Denies Pain Type: N/A Pain Goal: 3 Membrane Status: Intact Datetime: 10/07/2018 17:00 Stage of : OB Triage Assessment Type: Triage Maternal Assessment Level of Consciousness: Keenly Alert, Responsive DTR's/Clonus: DTRs 2+; No Clonus Headache: Denies Blurred Vision: No Respiratory Effort: Unlabored; Regular Rhythm; Equal Expansion Breath Sounds, Left: Clear and Equal Breath Sounds, Right: Clear and Equal Nausea/Vomiting: Denies RUQ Epigastric Pain: Denies Lower Extremities Edema: None Degree: None Upper Extremities Edema: None Degree: None Facial Edema: None (Annotations: U/S TECH AT BEDSIDE WITH PT ) Fall Risk Assessment History of Falling: (0) No Secondary Diagnosis: (0) No Ambulatory Aid: (0) Bedrest/Nurse Assist IV Therapy: (0) No Gait: (0) Normal/Bedrest/Immobile Mental Status: (0) Oriented to Own Ability Fall Score: 0 Fall Risk Score Definition: No Risk: No action required Datetime: 10/07/2018 16:48 Time of Arrival: 10/07/2018 16:48 EGA: 40.1 Arrived By: Ambulatory Arrived From: Dr. Office Chief Complaint: PT CAME IN FROM [facility] OFFICE FOR POSTDATES WITH A PRESCRIPTION FOR BPP AND WFW Movement: Present Contractions: Denies/Absent Rupture of Membranes: Denies Vaginal Discharge: Denies Recent Sexual Intercouse: Denies Abdominal Trauma: Not Applicable Additional Patient Complaints: NONE Time Provider Notified: 10/07/2018 17:47 Provider Notified: DELSHAD Initial Plan: BPP EFW Datetime: 09/20/2018 00:00 Labor Evaluation Frequency: NONE Monitor Mode: External Resting Tone [place]: Relaxed Heart Rate FHR Baseline Rate: 135 Monitor Mode: External US Variability: Moderate 6-25 bpm Accelerations: 15X15 Decelerations: None Category: Category I Datetime: 09/19/2018 23:32 Pain Assessment Pain Scale: 0 Pain Presence: None/Denies Pain Type: N/A Datetime: 09/19/2018 23:00 Labor Evaluation Frequency: NONE Monitor Mode: External Resting Tone [place]: Relaxed Heart Rate FHR Baseline Rate: 135 Monitor Mode: External US Variability: Moderate 6-25 bpm Accelerations: 15X15 Decelerations: None Category: Category I Datetime: 09/19/2018 22:02 Pain Assessment Pain Scale: 0 Pain Presence: None/Denies Pain Type: N/A Datetime: 09/19/2018 22:00 Labor Evaluation Frequency: x4 Monitor Mode: External Duration (sec)2399: 40-60 Quality: Mild Pattern: Normal: <= 5 Contractions in 10 Minutes Resting Tone [place]: Relaxed Heart Rate FHR Baseline Rate: 135 Monitor Mode: External US Variability: Moderate 6-25 bpm Accelerations: 15X15 Decelerations: None Category: Category I Datetime: 09/19/2018 21:05 Fall Score: 0 Fall Risk Score Definition: No Risk: No action required Datetime: 09/19/2018 21:04 EGA: 37.4 Time Provider Notified: 09/19/2018 21:26 Provider Notified: Dr. Delshad Datetime: 08/25/2018 09:00 Fall Score: 20 Fall Risk Score Definition: No Risk: No action required Datetime: 08/24/2018 20:04 Fall Score: 20 Fall Risk Score Definition: No Risk: No action required Datetime: 08/24/2018 07:29 Fall Score: 20 Fall Risk Score Definition: No Risk: No action required Datetime: 08/23/2018 19:58 Fall Score: 0 Fall Risk Score Definition: No Risk: No action required Datetime: 08/23/2018 09:08 Fall Score: 20 Fall Risk Score Definition: No Risk: No action required Datetime: 08/22/2018 19:39 Fall Score: 0 Fall Risk Score Definition: No Risk: No action required Datetime: 08/22/2018 17:44 Fall Score: 20 Fall Risk Score Definition: No Risk: No action required Datetime: 08/22/2018 17:41 EGA: 33.4 Datetime: 08/22/2018 09:25 Fall Score: 0 Fall Risk Score Definition: No Risk: No action required Datetime: 08/22/2018 09:24 EGA: 33.4 Datetime: 07/21/2018 08:14 Fall Score: 20 Fall Risk Score Definition: No Risk: No action required Datetime: 07/20/2018 20:18 Fall Score: 20 Fall Risk Score Definition: No Risk: No action required Datetime: 07/20/2018 07:58 Fall Score: 20 Fall Risk Score Definition: No Risk: No action required Datetime: 07/19/2018 20:06 Fall Score: 0 Fall Risk Score Definition: No Risk: No action required Datetime: 07/19/2018 07:40 Fall Score: 0 Fall Risk Score Definition: No Risk: No action required Datetime: 07/18/2018 19:35 Fall Score: 0 Fall Risk Score Definition: No Risk: No action required Datetime: 07/18/2018 07:41 Fall Score: 20 Fall Risk Score Definition: No Risk: No action required Datetime: 07/18/2018 01:15 EGA: 28.4 Fall Score: 0 Fall Risk Score Definition: No Risk: No action required Datetime: 07/04/2018 19:20 Fall Score: 0 Fall Risk Score Definition: No Risk: No action required Datetime: 07/04/2018 10:15 Fall Score: 0 Fall Risk Score Definition: No Risk: No action required Datetime: 07/03/2018 20:07 Fall Score: 0 Fall Risk Score Definition: No Risk: No action required Datetime: 07/03/2018 07:30 Fall Score: 20 Fall Risk Score Definition: No Risk: No action required Datetime: 07/02/2018 19:30 Fall Score: 20 Fall Risk Score Definition: No Risk: No action required Datetime: 07/02/2018 15:16 Fall Score: 0 Fall Risk Score Definition: No Risk: No action required Datetime: 07/02/2018 15:14 EGA: 26.2 Datetime: 06/17/2018 19:40 Fall Score: 0 Fall Risk Score Definition: No Risk: No action required Datetime: 06/17/2018 13:50 EGA: 24.1
[2018-10-07] MEDS: LACTATED RINGER'S 1,000 ML IV SCH (21:32)
[2018-10-07] MEDS: MISOPROSTOL 50 MCG CAPSULE PO SCH (21:43)
[2018-10-08] MEDS: MISOPROSTOL 50 MCG CAPSULE PO SCH ×3 (01:41→09:29)
[2018-10-08] MEDS: LACTATED RINGER'S 1,000 ML IV SCH ×3 (05:29→22:58)
[2018-10-08] MEDS ORDERED: OXYTOCIN 30 UNITS/LR 500 ML IV SCH (14:30)
[2018-10-08] MEDS: LACTATED RINGER'S 1,000 ML IV PRN (16:29)
--- NOTE | 2018-10-08 16:32 | PREAC ---
Date/Time of Note Date/Time of Note DATE: 10/08/18 TIME: 16:31 Anesthesia Eval and Record Evaluation Time Pre-Procedure Interview DATE: 10/08/18 TIME: 16:31 Age 18 Sex female NPO: 8 hrs Preoperative diagnosis intrauterine Planned procedure labor epidural Past Medical History Past Medical History: Includes : : (1), Para: (0) Surgery & Anesthesia Issues No known issue Meds Anticoagulation: No Beta Kemar within 24 hr: No Reason Beta Kemar not given: Pt. not on B-Kemar Reported Medications Vit No.130/Iron/FA ( Tablet) 1 Each Tablet, 1 EACH PO 07/02/18 Current Medications Lactated Ringer's 1,000 ml @ 125 mls/hr Q8H IV Last administered on 10/08/18at 13:53; Admin Dose 125 MLS/HR; Start 10/07/18 at 19:52 Butorphanol Tartrate (Stadol) 1 mg Q2H PRN IV .PAIN SCALE 1-5; Start 10/07/18 at 20:00 Butorphanol Tartrate (Stadol) 2 mg Q2H PRN IV .PAIN SCALE 6-10; Start 10/07/18 at 20:00 Lidocaine (Xylocaine 1% (Mpf)) 30 ml ONCE PRN INJ .EPISIOTOMY; Start 10/07/18 at 20:00 Oxytocin/Lactated Ringer's 500 ml @ 500 mls/hr ONCE POST IV ; Start 10/07/18 at 20:00 Oxytocin/Lactated Ringer's 500 ml @ 125 mls/hr POST IV ; Start 10/07/18 at 20:00 Ibuprofen (Motrin) 600 mg ONCE PRN PO .PAIN 1-5; Start 10/07/18 at 20:00 Lactated Ringer's 1,000 ml @ 2,000 mls/hr Q30M PRN IV .ANESTHESIA Last administered on 10/08/18at 16:29; Admin Dose 2,000 MLS/HR; Start 10/07/18 at 19:52 Oxytocin/Lactated Ringer's 500 ml @ 0 mls/hr ONCE PRN IV .VAGINAL BLEEDING; S tart 10/07/18 at 20:00 Methylergonovine Maleate (Methergine) 0.2 mg ONCE PRN IM .VAGINAL BLEEDING; S tart 10/07/18 at 20:00 Carboprost Tromethamine (Hemabate) 250 mcg ONCE PRN IM .VAGINAL BLEEDING; Start 10/07/18 at 20:00 Misoprostol (Cytotec) 1,000 mcg ONCE PRN GA .VAGINAL BLEEDING; Start 10/07/18 at 20:00 Oxytocin/Lactated Ringer's 500 ml @ 0 mls/hr Q0M IV Last administered on 10/08/18at 14:27; Admin Dose 1 MLS/HR; Start 10/08/18 at 14:30 Meds reviewed: Yes Allergies Coded Allergies: No Known Allergy (Unverified , 10/07/18) Allergies Reviewed: Yes Labs/Studies Labs Reviewed: Reviewed by anesthesiologist Result Diagram: 10/07/18 2130 Laboratory Tests 10/07/18 21:30 Blood Bank Test 10/07/18 21:30 Antibody Screen NEGATIVE Blood Type O POSITIVE Rh Immune Globulin Candidate NO test: N/A Pre-procedure Exam Airway: Adequate mouth opening, Adequate thyromental dist Mallampati: Mallampati II Teeth: Normal Lung: Normal Heart: Normal ASA Physical Status ASA physical status: 2 Emergency: None Planned Anesthetic Neuraxial: Epidural Planned Pain Management Epidural Pre-operative Attestations Prior to commencing anesthesia and surgery, the patient was re-evaluated, there was verification of: *The patient's identity *The results of appropriate recent lab work and preoperative vital signs *The above evaluation not changing prior to induction *Anesthetic plan, risk benefits, alternative and complications discussed with patient/family; questions answered; patient/family understands, accepts and wishes to proceed. PHILIP HERNANDEZ MD Oct 08, 2018 16:32
[2018-10-08] MEDS ORDERED: FENTAnyl 2MCG/ML-ROPIV 0.2% 100 ML ONE (16:35)
[2018-10-08] MEDS ORDERED: NALOXONE (0.4 MG/ML) INJ IV PRN (17:00)
[2018-10-08] MEDS ORDERED: DIPHENHYDRAMINE 50 MG INJ IV PRN (17:00)
[2018-10-08] MEDS ORDERED: ONDANSETRON 4 MG INJ IV PRN (17:00)
--- NOTE | 2018-10-08 17:19 | PAC ---
Date/Time of Note Date/Time of Note DATE: 10/08/18 TIME: 17:18 Post-Anesthesia Notes Post-Anesthesia Note Activity: WNL Respiratory function: WNL Cardiovascular function: Other (BP wnl. HR 50s at baseline. asymptomatic) Mental status: Baseline Pain reasonably controlled: Yes Hydration appropriate: Yes Nausea/Vomiting absent: Yes Comments BP: 108/62 HR: 54 RR: 15 T: 98 SaO2: 100% PHILIP HERNANDEZ MD Oct 08, 2018 17:19
[2018-10-08] MEDS: FENTAnyl 2MCG/ML-ROPIV 0.2% 100 ML BAG EPI SCH (17:33)
[2018-10-09] MEDS: LACTATED RINGER'S 1,000 ML IV SCH ×2 (00:48→07:46)
[2018-10-09] MEDS: FENTAnyl 2MCG/ML-ROPIV 0.2% 100 ML BAG EPI SCH ×2 (01:25→09:33)
[2018-10-09] MEDS ORDERED: SODIUM CHLORIDE 0.9% 1L IRRIG IRR SCH (07:00)
[2018-10-09] MEDS ORDERED: MINERAL OIL LIGHT 10 ML VIAL TOP ONE (08:00)
[2018-10-09] MEDS: LACTATED RINGER'S 1,000 ML IV PRN (09:32)
[2018-10-09] MEDS ORDERED: CEFAZOLIN 2 GM/50 ML (PMX) 50 ML IVPB SCH (10:00)
[2018-10-09] MEDS ORDERED: OXYTOCIN 30 UNITS/LR 500 ML BAG IV ONE (10:12)
[2018-10-09] MEDS ORDERED: OXYTOCIN 10 UNIT INJ ONE (10:13)
[2018-10-09] MEDS ORDERED: LIDOCAINE 2% (SDV) 5 ML INJ ONE (10:15)
[2018-10-09] MEDS ORDERED: KETOROLAC 30 MG INJ ONE (10:16)
[2018-10-09] MEDS ORDERED: DEXAMETHASONE 4 MG/ML 1 ML INJ ONE (10:16)
[2018-10-09] MEDS ORDERED: METOCLOPRAMIDE 10 MG INJ ONE (10:16)
[2018-10-09] MEDS ORDERED: morphine SULFATE/PF (10 MG/10 ML) INJ ONE (10:16)
[2018-10-09] MEDS ORDERED: NA BICARBONATE 8.4% 50 ML SYG ONE (10:16)
[2018-10-09] MEDS ORDERED: MEPERIDINE 100 MG INJ ONE (10:34)
--- NOTE | 2018-10-09 10:38 | PREAC ---
Date/Time of Note Date/Time of Note DATE: 10/09/18 TIME: 10:30 Anesthesia Eval and Record Evaluation Time Pre-Procedure Interview DATE: 10/09/18 TIME: 10:30 Age 18 Sex female NPO: 8 hrs Preoperative diagnosis Distress Planned procedure Past Medical History Past Medical History: Includes Heme: Anemia : : (1), Para: (0), Gestational age: (40), Other ( distress) Surgery & Anesthesia Issues No known issue Meds Anticoagulation: No Beta Kemar within 24 hr: No Reason Beta Kemar not given: Pt. not on B-Kemar Reported Medications Vit No.130/Iron/FA ( Tablet) 1 Each Tablet, 1 EACH PO 07/02/18 Current Medications Lactated Ringer's 1,000 ml @ 125 mls/hr Q8H IV Last administered on 10/09/18at 07:46; Admin Dose 125 MLS/HR; Start 10/07/18 at 19:52 Butorphanol Tartrate (Stadol) 1 mg Q2H PRN IV .PAIN SCALE 1-5; Start 10/07/18 at 20:00 Butorphanol Tartrate (Stadol) 2 mg Q2H PRN IV .PAIN SCALE 6-10; Start 10/07/18 at 20:00 Lidocaine (Xylocaine 1% (Mpf)) 30 ml ONCE PRN INJ .EPISIOTOMY; Start 10/07/18 at 20:00 Oxytocin/Lactated Ringer's 500 ml @ 500 mls/hr ONCE POST IV ; Start 10/07/18 at 20:00 Oxytocin/Lactated Ringer's 500 ml @ 125 mls/hr POST IV ; Start 10/07/18 at 20:00 Ibuprofen (Motrin) 600 mg ONCE PRN PO .PAIN 1-5; Start 10/07/18 at 20:00 Lactated Ringer's 1,000 ml @ 2,000 mls/hr Q30M PRN IV .ANESTHESIA Last administered on 10/09/18at 09:32; Admin Dose 2,000 MLS/HR; Start 10/07/18 at 19:52 Oxytocin/Lactated Ringer's 500 ml @ 0 mls/hr ONCE PRN IV .VAGINAL BLEEDING; Start 10/07/18 at 20:00 Methylergonovine Maleate (Methergine) 0.2 mg ONCE PRN IM .VAGINAL BLEEDING; Start 10/07/18 at 20:00 Carboprost Tromethamine (Hemabate) 250 mcg ONCE PRN IM .VAGINAL BLEEDING; Start 10/07/18 at 20:00 Misoprostol (Cytotec) 1,000 mcg ONCE PRN CO .VAGINAL BLEEDING; Start 10/07/18 at 20:00 Oxytocin/Lactated Ringer's 500 ml @ 0 mls/hr Q0M IV Last administered on 10/08/18at 14:27; Admin Dose 1 MLS/HR; Start 10/08/18 at 14:30 Naloxone HCl (Narcan) 0.1 mg Q2M PRN IV .RESP RATE; Start 10/08/18 at 17:00; Stop 10/09/18 at 16:59 Diphenhydramine HCl (Benadryl) 25 mg Q6H PRN IV .ITCHING Last administered on 10/08/18at 23:47; Admin Dose 25 MG; Start 10/08/18 at 17:00; Stop 10/09/18 at 16:59 Ondansetron HCl (Zofran Inj) 4 mg Q6H PRN IV .NAUSEA/VOMITING; Start 10/08/18 at 17:00; Stop 10/09/18 at 16:59 Fentanyl/ Ropivacaine 100 ml EPIDURAL INFUSION EPI Last administered on 10/09/18at 09:33; Admin Dose 100 ML; Start 10/08/18 at 17:00 Sodium Chloride (NS (Irrig)) 1,000 ml PRN IRR ; Start 10/09/18 at 07:00 Cefazolin Sodium/ Dextrose 50 ml @ 100 mls/hr ONCE IVPB ; Start 10/09/18 at 10:00 Meds reviewed: Yes Allergies Coded Allergies: No Known Allergy (Unverified , 10/07/18) Allergies Reviewed: Yes Labs/Studies Labs Reviewed: Reviewed by anesthesiologist Result Diagram: 10/07/182129 test: Positive Studies: ECG (n/a), CXR (n/a) Pre-procedure Exam Airway: Adequate mouth opening, Adequate thyromental dist Mallampati: Mallampati II Teeth: Normal Lung: Normal Heart: Normal ASA Physical Status ASA physical status: 2 Emergency: E Planned Anesthetic Neuraxial: Epidural Planned Pain Management Epidural Pre-operative Attestations Prior to commencing anesthesia and surgery, the patient was re-evaluated, there was verification of: *The patient's identity *The results of appropriate recent lab work and preoperative vital signs *The above evaluation not changing prior to induction *Anesthetic plan, risk benefits, alternative and complications discussed with patient/family; questions answered; patient/family understands, accepts and wishes to proceed. LINH PEREZ MD Oct 09, 2018 10:38
[2018-10-09] MEDS ORDERED: morphine 2 MG INJ IV PRN ×2 (11:00)
[2018-10-09] MEDS ORDERED: HYDROCODONE/APAP (5/325) TAB PO PRN (11:00)
[2018-10-09] MEDS ORDERED: LABETALOL HCL 20MG INJ IV PRN (11:00)
[2018-10-09] MEDS ORDERED: MEPERIDINE 25 MG INJ IV PRN (11:00)
[2018-10-09] MEDS ORDERED: ONDANSETRON 4 MG INJ IV PRN ×2 (11:00)
[2018-10-09] MEDS ORDERED: EPHEDrine 25 MG/5 ML SYG IV PRN (11:00)
[2018-10-09] MEDS ORDERED: NALBUPHINE HCL (10 MG/1 ML) INJ IV PRN (11:00)
[2018-10-09] MEDS ORDERED: OXYCODONE/ACETAMINOPHEN (5/325) TAB PO PRN ×2 (11:00→14:30)
[2018-10-09] MEDS ORDERED: HYDROmorphONE 0.5 MG/0.5 ML SYG IV PRN ×2 (11:00)
[2018-10-09] MEDS ORDERED: DIPHENHYDRAMINE 50 MG INJ IV PRN ×2 (11:00)
[2018-10-09] MEDS ORDERED: ACETAMINOPHEN 500 MG TAB PO PRN (11:00)
[2018-10-09] MEDS ORDERED: HYDROmorphONE 1 MG/5 ML IV SYRINGE IV PRN ×2 (11:00)
[2018-10-09] MEDS ORDERED: NALOXONE (0.4 MG/ML) INJ IV PRN (11:00)
[2018-10-09] MEDS ORDERED: FENTAnyl 50 MCG/ML VIAL IV PRN ×2 (11:00)
--- NOTE | 2018-10-09 11:23 | PAC ---
Date/Time of Note Date/Time of Note DATE: 10/09/18 TIME: 11:23 Post-Anesthesia Notes Post-Anesthesia Note Last documented vital signs T: 98.0 Activity: WNL Respiratory function: WNL Cardiovascular function: WNL Mental status: Baseline Pain reasonably controlled: Yes Hydration appropriate: Yes Nausea/Vomiting absent: Yes LINH PEREZ MD Oct 09, 2018 11:23
--- NOTE | 2018-10-09 11:56 | QN ---
Documentation Comment Patient with recurrent heart decelerations. Vertex at 0 station. Patient was pushing and there was not adequate decsent of head. Patient with Category II tracing remote from delivery. Patient is for delivery by primary . Risks, benefits and alternatives were explained to the patient who stated she understood and gave informed consent for the procedure. MIMA ROLDAN MD Oct 09, 2018 11:56
--- NOTE | 2018-10-09 12:09 | OPR ---
Operative Report Planned Procedure Procedure date Oct 09, 2018 Procedure(s) Primary low transverse Performed by Mima Roldan MD Fishing Gear Mechanic: WHITNEY TELLEZ Anesthesiologist: LINH PEREZ MD Pre-procedure diagnosis Term with Category II tracing [id number] Anesthesia Type: [id number] epidural Post-Procedure Post-procedure diagnosis Same Findings Live Baby, Apgars 7, 8, and 9 Estimated Blood Loss: other (800 ml) Specimen(s) Placenta Grafts/Implant(s) none Complication(s) none Pt Condition post procedure: stable Disposition: PACU Procedure Description After epidural anesthesia had been dosed and tested, the patient was placed supi ne on the Operating Room table and prepped and draped in the usual sterile fashion for a section. A Pfannenstiel incision was made through the abdomen and carried down to the level of the fascia. The fascia was incised transversely and then the rectus muscle was dissected off the fascia and split bluntly in the midline. The peritoneum was the entered bluntly. The bladder flap was created and then a low segment transverse incision was made with a knife on the uterus until the amniotic fluid was encountered. The incision was widened with bandage scissors. A hand was inserted elevating the vertex and then the head delivered with assistance of fundal pressure.. The nares and oropharynx were bulb suctioned, and the remainder of the was delivered out of the maternal abdomen. . The cord was doubly clamped and cut, and the infant handed off to the awaiting resuscitation team who was present for delivery. The placenta was then manually extracted and the interior uterus was cleaned with a dry lap sponge. The uterus was exteriorized, and the incision of the uterus closed with a running interlocking stitch of Monocryl suture. The uterus was replaced in the maternal abdomen. The abdomen was cleared of clots. The peritoneum was closed with 2-0 Vicryl. The fascia was closed with a running suture of #1 Vicryl suture meeting in the midline. The subcutaneous tissue was made hemostatic with Bovie cautery and was reapproximated with 2-0 plain suture. The skin approximated using faby. The patient tolerated the procedure well. All sponge and instrument counts were correct. She was taken to the recovery room in stable condition. MIMA ROLDAN MD Oct 09, 2018 12:08
[2018-10-09 14:00] VITALS: BP 119/72; PULSE 65; RESP 16
[2018-10-09] MEDS ORDERED: OXYTOCIN 30 UNITS/LR 500 ML IV SCH (14:19)
[2018-10-09] MEDS ORDERED: LACTATED RINGER'S 1,000 ML IV SCH (14:19)
[2018-10-09] MEDS ORDERED: CARBOPROST 250 MCG INJ IM PRN (14:30)
[2018-10-09] MEDS ORDERED: MISOPROSTOL 200 MCG TAB PR PRN (14:30)
[2018-10-09] MEDS ORDERED: OXYTOCIN 30 UNITS/LR 500 ML IV PRN (14:30)
[2018-10-09] MEDS ORDERED: METHYLERGONOVINE 0.2 MG INJ IM PRN (14:30)
[2018-10-09 15:00] VITALS: BP 118/68; PULSE 67; RESP 16
[2018-10-09 16:00] VITALS: BP 122/64; PULSE 57; RESP 16
[2018-10-09] MEDS: LANOLIN HPA 1 PKT TOP PRN (17:39)
[2018-10-09 20:00] VITALS: BP 96/56; PULSE 69; RESP 20
[2018-10-09] MEDS: SENNA/DOCUSATE NA (8.6MG/50MG) TAB PO SCH (21:00)
[2018-10-10] MEDS: KETOROLAC 30 MG INJ IV PRN ×2 (03:14→09:16)
[2018-10-10 05:12] VITALS: BP 111/65; PULSE 72; RESP 20
[2018-10-10 08:30] VITALS: BP 90/54; PULSE 70; RESP 18
[2018-10-10] MEDS: SENNA/DOCUSATE NA (8.6MG/50MG) TAB PO SCH ×2 (09:16→21:45)
[2018-10-10] MEDS: IBUPROFEN 800 MG TAB PO SCH ×2 (13:22→21:46)
--- NOTE | 2018-10-10 14:44 | QN ---
Documentation Comment No complaint afebrile VSS Abdomen soft POD #1 Stable Ambulate advance diet. MIMA ROLDAN MD Oct 10, 2018 14:44
[2018-10-10 16:00] VITALS: BP 118/52; PULSE 77; RESP 20
[2018-10-10] MEDS: OXYCODONE/ACETAMINOPHEN (5/325) TAB PO PRN (19:23)
[2018-10-10 20:00] VITALS: BP 118/56; PULSE 77; RESP 20
[2018-10-10] MEDS: FERROUS SULFATE (EC) 325 MG TAB PO SCH (21:45)
[2018-10-11 04:13] VITALS: BP 120/61; PULSE 70; RESP 20
[2018-10-11] MEDS: IBUPROFEN 800 MG TAB PO SCH ×3 (05:41→21:52)
[2018-10-11 08:00] VITALS: BP 111/54; PULSE 81; RESP 18
[2018-10-11] MEDS: FERROUS SULFATE (EC) 325 MG TAB PO SCH ×3 (08:04→21:51)
[2018-10-11] MEDS: SENNA/DOCUSATE NA (8.6MG/50MG) TAB PO SCH ×2 (08:04→21:51)
[2018-10-11] MEDS: OXYCODONE/ACETAMINOPHEN (5/325) TAB PO PRN (08:05)
[2018-10-11 16:00] VITALS: BP 105/65; PULSE 82; RESP 18
--- NOTE | 2018-10-11 19:46 | QN ---
Documentation Comment No complaint Afebrile VSS Abdomen soft Incision intact POD #2 Stable Continue present care. MIMA ROLDAN MD Oct 11, 2018 19:46
[2018-10-11 20:00] VITALS: BP 115/71; PULSE 79; RESP 18
[2018-10-11] MEDS: LANOLIN HPA 1 PKT TOP PRN (21:47)
[2018-10-12 04:00] VITALS: BP 112/73; PULSE 72; RESP 17
[2018-10-12] MEDS: IBUPROFEN 800 MG TAB PO SCH ×2 (06:16→14:33)
[2018-10-12 08:00] VITALS: BP 111/65; PULSE 77; RESP 19
[2018-10-12] MEDS ORDERED: DIPHTH/TET/ACEL PERTUSS (ADULT) 0.5 ML VIAL IM* ONE (09:00)
[2018-10-12] MEDS: SENNA/DOCUSATE NA (8.6MG/50MG) TAB PO SCH (12:05)
[2018-10-12] MEDS: FERROUS SULFATE (EC) 325 MG TAB PO SCH ×2 (12:06→13:00)
[2018-10-12 16:15] VITALS: BP 108/76; PULSE 73; RESP 16
--- NOTE | 2018-10-13 17:35 | DELSUM ---
Delivery Summary A-C Datetime Report Generated by CPN: 10/13/2018 17:35 DELIVERY PERSONNEL Zoo Keeper: Badgett, Maria Antonia Benzene Washer: Wilber, Evonne MATERNAL INFORMATION Delivery Anesthesia: Epidural Medications in Delivery: pitocin, Delivery QBL (ml): 800 Placenta Cultured: No Maternal Complications: Other Other Maternal Complications: bullimia 5yrs including start of this , gallstones, pancriati tis, low pulse RN Comments: postdates, prolonged decels, light mec, nuco 1x, to nicu for observation LABOR SUMMARY EDC: 10/06/2018 00:00 No. Babies in Womb: 1 Attempted: No Labor Anesthesia: Epidural LABOR INFORMATION Reason for Induction: Postterm Onset of Labor: 10/08/2018 17:00 Complete Dilatation: 10/09/2018 08:00 Cervical Ripening Agents: Cytotec @ 50 Group B Beta Strep: Negative Antibiotics # of Doses: 2 Antibiotics Time of Last Dose: 10/09/2018 10:10 Steroids Given: None Reason Steroids Not Administered: Not Applicable MEMBRANES Membranes Rupture Method: Artificial Rupture of Membranes: 10/08/2018 19:21 Length of Rupture (hr): 14.88 Amniotic Fluid Color: Light Meconium Amniotic Fluid Amount: Small Amniotic Fluid Odor: None STAGES OF LABOR Stage 1 hr: 15 Stage 1 min: 0 Stage 2 hr: 2 Stage 2 min: 14 Stage 3 hr: 0 Stage 3 min: 2 Total Time in Labor hr: 17 Total Time in Labor min: 16 CSECTION DELIVERY Primary Indication: Nonreassuring Stat Secondary Indication: Nonreassuring Stat CSection Urgency: Elective CSection Incidence: Primary Labor: Labor Elective: Elective CSection Incision: Lower Uterine Transverse BABY A INFORMATION Delivery Date/Time: 10/09/2018 10:14 Method of Delivery: Born in Route : No : N/A Forceps: N/A Vacuum Extraction: N/A Shoulder Dystocia : No SHOULDER DYSTOCIA BABY A Delivery Date/Time: 10/09/2018 10:14 PRESENTATION/POSITION BABY A Presentation: Cephalic Cephalic Presentation: Vertex Vertex Position: Left Occipital Anterior Breech Presentation: N/A PLACENTA INFORMATION BABY A Placenta Delivery Time : 10/09/2018 10:16 Placenta Method of Delivery: Spontaneous Placenta Status: Delivered SCORES BABY A Heart Rate 1 min: >100 bpm Resp Effort 1 min: Good Cry Reflex Irritability 1 min: Cough/Sneeze/Pulls Away Muscle Tone 1 min: Some Flexion of Extrem Color 1 min: Blue/Pale Resuscitation Effort 1 min: Tactile Stimulation; Oxygen; PPV/NCPAP SCORE 1 MIN: 7 Heart Rate 5 min: >100 bpm Resp Effort 5 min: Good Cry Reflex Irritability 5 min: Cough/Sneeze/Pulls Away Muscle Tone 5 min: Some Flexion of Extrem Color 5 min: Body [place], Extremit Blue Resuscitation Effort 5 min: Tactile Stimulation; Oxygen; PPV/NCPAP SCORE 5 MIN: 8 Heart Rate 10 min: >100 bpm Resp Effort 10 min: Good Cry Reflex Irritability 10 min: Cough/Sneeze/Pulls Away Muscle Tone 10 min: Active Motion Color 10 min: Body [place], Extremit Blue Resuscitation Effort 10 min: Tactile Stimulation; Oxygen SCORE 10 MIN: 9 INFANT INFORMATION BABY A Gestational Age at Delivery: 40.3 Gestational Status: Full Term- 39- 40.6 Weeks Infant Outcome : Liveborn, with signs of life Infant Condition : Stable Infant Sex: Male IDENTIFICATION/MEDS BABY A ID Band Number: [id number] ID Band Location: Right Leg; Left Arm Sensor Applied: Yes Sensor Number: [id number] Sensor Location : Cord Clamp Vitamin K Given : Not Given Erythromycin Given: Not Given WEIGHT/LENGTH BABY A Birthweight (gm): 3535 Weight (lb): 7 Infant Weight (oz): 13 Infant Length (in): 20.50 Length (cm): 52.07 CORD INFORMATION BABY A No. Cord Vessels: 3 Nuchal Cord : Around Neck x1, Loose Infant Cord pH Baby Venous: 7.10 Cord Blood Taken: Yes Suction: Mouth; Nose ASSESSMENT BABY A Infant Complications: Multiple Late Decels; Multiple Variable Decels; Meconium; Other Infant Complications- Other: BULIMI, POST DATES, MEC, nuco, prolonged decels Physical Findings at Delivery: Caput Succedaneum; Molding of the Head; Other Physical Findings- Other: left superfical laceration on inner thigh Infant Respirations: Grunting Center Director/ALS Called : Yes Infant Care By: Nikolas HERNANDEZ RN, NICU TECH anat flowers Transferred To: NICU
== END 2018-10-12 17:35 | disposition home or self-care (01) | DRG 788 ==
LOC: OBT 16:53 → L-D 16:54 → OBT 19:30 → L-D 21:28 → PP1 10-09 13:46
PROVIDERS: ADMIT Obstetrics & Gynecology; ATTEND Obstetrics & Gynecology
PROC: 4A1HXCZ Monitoring of Products of Conception, Cardiac Rate, External Approach (ICD-10-PCS; 2018-10-07)
PROC: 10907ZC Drainage of Amniotic Fluid, Therapeutic from Products of Conception, Via Natural or Artificial Opening (ICD-10-PCS; 2018-10-09)
PROC: 10D00Z1 Extraction of Products of Conception, Low, Open Approach (ICD-10-PCS; principal; 2018-10-09 10:00)
DX: O48.0 Post-term pregnancy (principal); O69.81X0 Labor and delivery complicated by cord around neck, without compression, not applicable or unspecified; O76 Abnormality in fetal heart rate and rhythm complicating labor and delivery; Z3A.40 40 weeks gestation of pregnancy; Z37.0 Single live birth
CPT/HCPCS: 36415; 62322; 76815; 76818; 82803; 85025; 85610; 85730; 86592; 86850; 86900; 86901; 87340; 88307; 99464; G0463; J1100; J1200; J1885; J2175; J2274; J2405; J2590; J2765; J3010; J7120